=== PATIENT | female | born 1935 | race Caucasian/White ===

== ENCOUNTER → 2017-02-19 | Day surgery (SDC) | payer MEDICARE ==
[~2017-02-19] MED LIST: ALBU8I INH; AMIO200T PO; AMLO2.5T PO; APIX2.5T PO; ATOR80TA PO; AZEL0.05; BACL10TA PO; BACL20; CARD240C6 PO; CLAR10CA3 PO; CORT15T EX; CYMB30CA PO; DULO1CAP2 PO; FAMO20TA2 PO; FISH1200 PO; FLON0.053; FLOV220A INH; FLUTI220I INH; FURO20TA PO; GAS-80CH CHEW; GENTGEL; GNP5TAB6 PO; HYDR-3133 PO; IPRASOL INH; ISOS20TA PO; ISOS30; KETOCONAZOLE 1%; LACTATED RINGER'S 1000 ML INJ 1,000 ML ONE; LIPI10TA PO; MELO-1 PO; METO25 PO; METO25TA3 PO; METO50TA PO; NITR0.4S SL; NITR1SUB3 SL; NORC5TAB PO; NYST100010 TOP; ONABOTULINUMTOXINA INJ 100 UNITS/VIAL ONE; POLY119S PO; POTA20TA5 PO; PRAM0.12 PO; PRAM1TAB; PROPOFOL 200 MG/20 ML AMP IV ONE; PROT40TA PO; SENN1TAB PO; SODIUM CHLORIDE 0.9% INJ 10 ML ONE; TAB-TAB PO; TUMS500C PO; TYLE500T PO; VENTAER INH; domperidone PO
--- NOTE | 2017-02-19 12:53 | GIPROC ---
[facility] [address] [facility], [address] EGD PROCEDURE REPORT EXAM DATE: 02/19/2017 PATIENT NAME: Rafy Orozco MR #: [id number] BIRTHDATE: 1935 ATTENDING: Triny Bhatia MD ORDER #: [id number] EDGING MACHINE CATCHER: Elena Lopez RN STATUS: outpatient INDICATIONS: The patient is a 82 yr old female here for an EGD due to history of esophageal reflux, dyspepsia, and dysphagia PROCEDURE PERFORMED: EGD w/ biopsy EGD w/ directed submucosal injection(s), any substance MEDICATIONS: None and Per Anesthesia. TOPICAL ANESTHETIC: CONSENT: The patient understands the risks and benefits of the procedure and understands that these risks include, but are not limited to: sedation, allergic reaction, infection, perforation and/or bleeding. Alternative means of evaluation and treatment include, among others: physical exam, x-rays, and/or surgical intervention. The patient elects to proceed with this endoscopic procedure. medical equipment was checked for proper function. Hand hygiene and appropriate measures for infection prevention was taken. After the risks, benefits and alternatives of the procedure were thoroughly explained, Informed consent was verified, confirmed and timeout was successfully executed by the treatment team. The patient was anesthetized with topical anesthesia and the [id number] ([id number]) endoscope was introduced through the mouth and advanced to the second portion of the duodenum. Retroflexed views revealed a hiatal hernia The gastroscope was then slowly withdrawn and removed. ESOPHAGUS: The mucosa of the esophagus appeared normal. STOMACH: There was erythematous moderate gastritis in the gastric antrum. A biopsy was performed. Pyloric stenosis, injected with 5 cc of botox around the pylorus. DUODENUM: The duodenal mucosa appeared normal in the bulb and second portion of the duodenum. ADVERSE EVENTS: There were no complications. IMPRESSIONS: 1. The esophagus appeared normal 2. There was erythematous gastritis in the gastric antrum; biopsy was performed 3. Pyloric stenosis, injected with 5 cc of botox around the pylorus 4. Normal duodenal mucosa in the bulb and second portion of the duodenum 5. Retroflexed views revealed a hiatal hernia RECOMMENDATIONS: 1. Await biopsy results. Biopsy results will not be ready for 7-10 days. If you don't hear from us in two weeks, call our office for biopsy results. 2. Anti-reflux regimen 3. Continue PPI 4. Follow-up: GI clinic 2 week(s) PATIENT CONDITION: stable DISPOSITION: Home REPEAT EXAM: Return as needed for EGD pending biopsy results Triny Bhatia MD eSigned: Triny Bhatia MD 02/19/2017 12:53 PM [facility]: [facility] PATIENT NAME: Rafy Orozco MR#: [id number]
== END | disposition home or self-care (01) ==
LOC: ESDC 10:23
PROVIDERS: ATTEND Internal Medicine Gastroenterology
DX: K21.9 Gastro-esophageal reflux disease without esophagitis (principal); R13.10 Dysphagia, unspecified; K29.70 Gastritis, unspecified, without bleeding; K31.1 Adult hypertrophic pyloric stenosis; K44.9 Diaphragmatic hernia without obstruction or gangrene
CPT/HCPCS: 00740; 00810; 43236; 43239; 88305; 88312; J0585; J3010; J7120

== ENCOUNTER 2017-03-10 06:55 | Inpatient (IN) | payer MEDICARE ==
[2017-03-10] VITALS (16 sets, daily range): BP systolic 109–196; BP diastolic 56–104; PULSE 73–144; RESP 13–30; TEMP 97.6–99.1; O2SAT 95–100
[~2017-03-10] VITALS: Ht 152.4 cm; Wt 68.7 kg
[~2017-03-10 06:55] MED LIST changes: -AMIO200T PO; -AMLO2.5T PO; -APIX2.5T PO; -BACL10TA PO; -CARD240C6 PO; -CLAR10CA3 PO; -DULO1CAP2 PO; -FAMO20TA2 PO; -FISH1200 PO; -FLUTI220I INH; -FURO20TA PO; -GNP5TAB6 PO; -HYDR-3133 PO; -IPRASOL INH; -ISOS20TA PO; -KETOCONAZOLE 1%; -LACTATED RINGER'S 1000 ML INJ 1,000 ML ONE; -LIPI10TA PO; -MELO-1 PO; -METO25TA3 PO; -METO50TA PO; -NITR1SUB3 SL; -NORC5TAB PO; -ONABOTULINUMTOXINA INJ 100 UNITS/VIAL ONE; -POTA20TA5 PO; -PRAM0.12 PO; -PROPOFOL 200 MG/20 ML AMP IV ONE; -SENN1TAB PO; -SODIUM CHLORIDE 0.9% INJ 10 ML ONE; -VENTAER INH; -domperidone PO
[2017-03-10] MEDS ORDERED: ETOMIDATE 20 MG/10 ML VIAL ONE (07:00)
[2017-03-10] MEDS ORDERED: SUCCINYLCHOLINE CHLORIDE 200 MG/10 ML VIAL ONE (07:01)
[2017-03-10] MEDS ORDERED: PROPOFOL 1000 MG/100 ML INJ 100 ML ONE (07:08)
[2017-03-10] MEDS ORDERED: FUROSEMIDE 40 MG/4 ML VIAL IVP ONE (07:15)
[2017-03-10] MEDS ORDERED: methylPREDNISolone SOD SUCC 125 MG/2 ML VIAL IVP ONE (07:15)
--- NOTE | 2017-03-10 07:24 | PD ---
HPI Chief Complaint: Respiratory Distress Time Seen by Provider: 07:12 Travel History International Travel<30 days: No Contact w/Intl Traveler<30days: No Traveled to known affect area: No History of Present Illness HPI most of history obtained from ems....call to private home for sob, found pulse ox 74%, UNKNOWN CODE STATUS, PFS Past Medical History Arthritis: Yes Autoimmune Disease: No Blood Disorders: No Depression: Yes Heart Rhythm Problems: Yes Cancer: Yes (hx of left breast cancer) Cardiac Catheterization: Yes Cardiovascular Problems: Yes (cad pt had triple by-pass) High Cholesterol: Yes Chest Pain: Yes Cerebrovascular Accident: Yes Diabetes: No Endocrine: No Gastrointestinal Disorders: Yes (ibs and reflux with symptoms of diaherra) GERD: Yes Glaucoma: No Genitourinary: Yes (pt states she has a interstim) Headaches: Yes Hepatitis: No Hiatal Hernia: No Hypertension: Yes Immune Disorder: No Medical other: Yes (ARTHRITIS, STROKE) Musculoskeletal: Yes (pt states she does have back problems and arthritis) Neurologic: No Psychiatric: No Reproductive: No Respiratory: Yes (light asthma) Integumentary: No Thyroid Disease: No PNEUMOCCOCAL Vaccine (Year): 1 Past Surgical History Abdominal Surgery: Yes (lap benito) Body Medical Devices: interstim, WIRES IN CHEST Cardiac Surgery: Yes (triple by-pass) Coronary Artery Bypass Graft: Yes Ear Surgery: No Endocrine Surgery: No Eye Surgery: Yes (romario lens implants) Genitourinary Surgery: No Gynecologic Surgery: Yes (D&C) Neurologic Surgery: Yes (CERVICAL (NECK) SX, LUMBAR FUSION) Oral Surgery: Yes (TONSILLECTOMY) Pacemaker: No Thoracic Surgery: Yes (left breast lumpectomy) Other Surgery: Yes (CATARACTS) Social History Alcohol Use: No Tobacco Use: No Substance Use: No Allergies-Medications (Allergen,Severity, Reaction): Coded Allergies: Amlodipine (Unverified Allergy, Severe, swellings in the legs, 03/29/14) Azithromycin (Verified Allergy, Severe, 03/29/14) unknown Darvon (Verified Allergy, Severe, LIGHT HEADED, 03/29/14) Naproxen (Verified Allergy, Severe, DIZZINESS, 03/29/14) Penicillin (Verified Allergy, Severe, Rash, 03/29/14) Protonix (Verified Allergy, Severe, 03/29/14) pt states its ok to take Sulfa (Verified Allergy, Severe, Hives, 03/29/14) CONFIRM? Zetia (Unverified Allergy, Severe, RASH, 03/29/14) CRESTOR (Unverified Allergy, Unknown, legs aching, 03/29/14) Lipitor (Verified Adverse Reaction, Severe, MUSCLE ACHES, JOINT SORENESS, 03/29/14) pt states its ok to take Zocor (Verified Adverse Reaction, Severe, MUSCLE ACHES, JOINT SORENESS, ) Uncoded Allergies: LOTEMAX (Allergy, Severe, eye lids get sore, 03/25/14) STATINS (Adverse Reaction, Intermediate, MUSCLE CRAMPS LEGS AND SORENESS IN JOINTS, 09/13/10) Reported Meds & Prescriptions Reported Meds & Active Scripts Active Reported [domperidone] 10 Mg PO TID Lipitor (Atorvastatin Calcium) 10 Mg Tab Unknown Dose PO HS Claritin (Loratadine) 10 Mg Cap 10 Mg PO DAILY Fish Oil 1200 mg (Jarrell-3 Fatty Acids) 1 Cap Cap 1 Tab PO DAILY Pramipexole (Pramipexole Dihydrochloride) 0.125 Mg Tab 0.125 Mg PO HS Flovent Hfa 12 GM Inh (Fluticasone Propionate) 220 Mcg/Act Inh 1 Puff INH BID Use daily at the same time. [ketoconazole 1%] 1 Applic NA BID PRN Nitroglycerin SL (Nitroglycerin) 0.4 Mg Subl 0 SL DIRECTED PRN ONE TABLET UNDER THE TONGUE NEEDED FOR CHEST PAIN, MAY REPEAT EVERY FIVE MINUTES FOR A TOTAL OF 3 DOSES OR CALL 911 IF NO RELIEF Ventolin Hfa 18 GM Inh (Albuterol Sulfate) 90 Mcg/Act Aer 2 Puff INH Q6H PRN Hydroxyzine HCl 25 Mg Tab 25 Mg PO TID Meloxicam 15 Mg Tab 15 Mg PO DAILY Amlodipine (Amlodipine Besylate) 2.5 Mg Tab 2.5 Mg PO DAILY Glendo (Hydrocodone-Acetaminophen) 5-325 mg Tab 1 Tab PO Q8HR PRN Protonix (Pantoprazole Sodium) 40 Mg Tab 40 Mg PO BID Duloxetine DR (Duloxetine HCl) 30 Mg Capdr 30 Mg PO DAILY Isosorbide Mononitrate 20 Mg Tab 30 Mg PO BID Take 2 doses 7 hours apart. Metoprolol Tartrate 50 Mg Tab 50 Mg PO BID Baclofen 10 Mg Tab 5 Mg PO HS Review of Systems ROS Limitations: Clinical Condition, Intubated Except as stated in HPI: all other systems reviewed are Neg Physical Exam Narrative GENERAL: patient was not speaking on arrival while on bipap, made poor eye contact...diaphoretic SKIN: Warm and dry. HEAD: Atraumatic. Normocephalic. EYES: Pupils equal and round. No scleral icterus. No injection or drainage. ENT: No nasal bleeding or discharge. Mucous membranes pink and moist. NECK: Trachea midline. No JVD. CARDIOVASCULAR: Regular rate and rhythm. RESPIRATORY: accessory mm use, retractions full, paradoxical breathing pattern, wheezes, and decreased tv GASTROINTESTINAL: Abdomen soft, non-tender, nondistended. Hepatic and splenic margins not palpable. MUSCULOSKELETAL: Extremities without clubbing, cyanosis, or edema. No obvious deformities. NEUROLOGICAL: Awake and alert. No obvious cranial nerve deficits. Motor grossly within normal limits. Five out of 5 muscle strength in the arms and legs. Normal speech. PSYCHIATRIC: Appropriate mood and affect; insight and judgment normal. Data Data Last Documented VS Vital Signs Date Time Temp Pulse Resp B/P Pulse Ox O2 Delivery O2 Flow Rate FiO2 03/10/17 09:00 113 14 121/60 97 Ventilator 03/10/17 08:50 40 Orders Etomidate Inj (Amidate Inj) (03/10/17 07:00) Succinylcholine Inj (Quelicin Inj) (03/10/17 07:01) Propofol 1000 Mg/100 Ml Inj (Diprivan 10 (03/10/17 07:08) Complete Blood Count With Diff (03/10/17 07:12) Comprehensive Metabolic Panel (03/10/17 07:12) B-Type Natriuretic Peptide (03/10/17 07:12) Act Partial Throm Time (Ptt) (03/10/17 07:12) Prothrombin Time / Inr (Pt) (03/10/17 07:12) Ckmb (Isoenzyme) Profile (03/10/17 07:12) Troponin I (03/10/17 07:12) Arterial Blood Gas (Abg) (03/10/17 07:12) Urinalysis - C+S If Indicated (03/10/17 07:12) Influenzae A/B Antigen (03/10/17 07:12) Blood Culture (03/10/17 07:12) Iv Access Insert/Monitor (03/10/17 07:12) Electrocardiogram (03/10/17 07:12) Ecg Monitoring (03/10/17 07:12) Oximetry (03/10/17 07:12) Oxygen Administration (03/10/17 07:12) Chest, Single Ap (03/10/17 07:12) Urinary Catheter Insert/Apply (03/10/17 07:12) Sodium Chloride 0.9% Flush (Ns Flush) (03/10/17 07:15) Furosemide Inj (Lasix Inj) (03/10/17 07:15) Methylprednisolone So Succ Inj (Solumedr (03/10/17 07:15) Albuterol-Ipratropium Neb (Duoneb Neb) (03/10/17 07:15) Kendra-Gastric Tube Insert/Mon (03/10/17 07:25) Propofol 1000 Mg/100 Ml Inj (Diprivan 10 (03/10/17 07:30) Etomidate Inj (Amidate Inj) (03/10/17 07:45) Succinylcholine Inj (Quelicin Inj) (03/10/17 07:45) Lactic Acid Sepsis Protocol (03/10/17 08:15) Pneumococcal Urinary Antigen (03/10/17 08:15) Legionella Urinary Antigen (03/10/17 08:15) Sputum Culture And Gram Stain (03/10/17 08:15) Metronidazole 500 Mg Inj (Flagyl 500 Mg (03/10/17 08:15) Aztreonam Inj (Azactam Inj) (03/10/17 08:15) Tobramycin Inj (Nebcin Inj) (03/10/17 08:45) Vancomycin Inj (Vancomycin Inj) (03/10/17 09:00) Ct Thorax/ Chest Wo Iv Contras (03/10/17 ) Admit Order (Ed Use Only) (03/10/17 08:56) Labs Laboratory Tests Test 03/10/17 03/10/17 07:20 08:30 White Blood Count 14.9 TH/MM3 Red Blood Count 4.26 MIL/MM3 Hemoglobin 11.6 GM/DL Hematocrit 37.3 % Mean Corpuscular Volume 87.5 FL Mean Corpuscular Hemoglobin 27.3 PG Mean Corpuscular Hemoglobin 31.2 % Concent Red Cell Distribution Width 14.9 % Platelet Count 389 TH/MM3 Mean Platelet Volume 8.0 FL Neutrophils (%) (Auto) 79.7 % Lymphocytes (%) (Auto) 12.4 % Monocytes (%) (Auto) 5.8 % Eosinophils (%) (Auto) 1.9 % Basophils (%) (Auto) 0.2 % Neutrophils # (Auto) 11.9 TH/MM3 Lymphocytes # (Auto) 1.8 TH/MM3 Monocytes # (Auto) 0.9 TH/MM3 Eosinophils # (Auto) 0.3 TH/MM3 Basophils # (Auto) 0.0 TH/MM3 CBC Comment DIFF FINAL Differential Comment Prothrombin Time 13.5 SEC Prothromb Time International 1.2 RATIO Ratio Activated Partial 25.7 SEC Thromboplast Time Urine Color YELLOW Urine Turbidity HAZY Urine pH 6.0 Urine Specific [place] 1.018 Urine Protein 100 mg/dL Urine Glucose (UA) 70 mg/dL Urine Ketones NEG mg/dL Urine Occult Blood SMALL Urine Nitrite NEG Urine Bilirubin NEG Urine Urobilinogen LESS THAN 2.0 MG/DL Urine Leukocyte Esterase NEG Urine Amorphous Sediment OCC Urine Bacteria FEW /hpf Urine Hyaline Casts 3-5 /lpf Microscopic Urinalysis Comment CULT NOT INDICATED Sodium Level 139 MEQ/L Potassium Level 4.4 MEQ/L Chloride Level 101 MEQ/L Carbon Dioxide Level 28.7 MEQ/L Anion Gap 9 MEQ/L Blood Urea Nitrogen 14 MG/DL Creatinine 1.07 MG/DL Estimat Glomerular Filtration 49 ML/MIN Rate Random Glucose 208 MG/DL Calcium Level 9.1 MG/DL Total Bilirubin 0.7 MG/DL Aspartate Amino Transf 45 U/L (AST/SGOT) Alanine Aminotransferase 37 U/L (ALT/SGPT) Alkaline Phosphatase 159 U/L Total Creatine Kinase 87 U/L Troponin I 0.13 NG/ML B-Type Natriuretic Peptide 299 PG/ML Total Protein 7.2 GM/DL Albumin 3.0 GM/DL Blood Gas Puncture Site LT RADIAL Blood Gas Patient Temperature 98.6 Blood Gas HCO3 27 mmol/L Blood Gas Base Excess 3.4 mmol/L Blood Gas Oxygen Saturation 98 % Arterial Blood pH 7.49 Arterial Blood Partial 35 mmHg Pressure CO2 Arterial Blood Partial 310 mmHG Pressure O2 Arterial Blood Oxygen Content 15.6 Vol % Arterial Blood 1.3 % Carboxyhemoglobin Arterial Blood Methemoglobin 0.5 % Blood Gas Hemoglobin 10.8 G/DL Oxygen Delivery Device VENTILATOR Blood Gas Ventilator Setting 14/550/+5/100% Blood Gas Inspired Oxygen 100 % [facility] Medical Decision Making Medical Screen Exam Complete: Yes Emergency Medical Condition: Yes Medical Record Reviewed: Yes Interpretation(s) st 101, lae, nonspec stt changes Differential Diagnosis PNA, CHF, PULM EDEMA, RENAL FAILURE, NONSTEMI/OK, CAUSES OF RESP FAILURE Narrative Course PATIENT ARRIVED WITH PARADOXICAL BREATHING, SEVERE HYPOXEMIA PATIENT WAS GIVEN RSI AND INTUBATED GERSON. SEE INTUBATION, SEE CRITICAL CARE NOTE, PATIENT WAS GIVEN IV ABX AZACTAM/VANCO/TOBRAMYCIN/FLAGYL COMBINATION, ETT WAS PULLED BACK 1 INCH, BASED ON FINDINGS ON CXR OF MULTILOBAR PNA AND ETT ABUTTING RT MAINSTEM. UA C/W UTI. PATIENT'S CASE D/W AMELIA WHO REQUESTED CT CHEST W/O CONTRAST PRIOR TO TRANSFEERRING FOR ADMISSION TO ICU Critical Care Narrative CRITICAL CARE NOTE: With evaluation of the patient, labs, EKG, receipt of radiologic studies, administration of medications, reevaluation the patient and discussion of the patient with the admitting physicians, the total critical care time was [60] minutes. Time to perform other separately billable procedures was not included in the critical care time. Procedures Procedure Narrative The patient was put in optimal position for the procedure. Rapid sequence intubation was initiated by me using [20] milligrams of etomidate IV and [100] milligrams of [succinylcholine] IV. The patient was intubated with a [8-0] cuffed endotracheal tube. Tube placement was confirmed by visualization of the tube and balloon passing through the cords, capnometry and subsequent chest x- ray. Breath sounds were equal and well aerated bilaterally postintubation. No breath sounds over stomach. Patient tolerated procedure well. Physician Communication Physician Communication SPOKE WITH DR FAYE WHO RECC TO SPEAK WITH FLEET SERVICE MANAGER. DISCUSSED FULLY WITH FLEET SERVICE MANAGER Tevin JOYCE AT 0855 Diagnosis Primary Impression: Respiratory failure Qualified Code: J96.01 - Acute respiratory failure with hypoxia Additional Impression: Pneumonia Qualified Code: J18.9 - Pneumonia due to infectious organism, unspecified laterality, unspecified part of lung Admitting Information Admitting Physician Requests: Admit Jony Harrison MD Mar 10, 2017 07:24
[2017-03-10] MEDS: PROPOFOL 1000 MG/100 ML BTL IV SCH ×2 (07:39→20:34)
[2017-03-10 07:42] LABS: AUTOMATED NEUTROPHIL # 11.9 TH/MM3 (1.8-7.7); BASOPHIL % 0.2 % (0.0-2.0); EOSINOPHIL # 0.3 TH/MM3 (0-0.4); EOSINOPHIL % 1.9 % (0.0-4.0); HEMATOCRIT 37.3 % (35.0-46.0); HEMO FLAGS DIFF FINAL; LYMPH % 12.4 % (9.0-44.0); LYMPHOCYTE # 1.8 TH/MM3 (1.0-4.8); MEAN CELL VOLUME 87.5 FL (80.0-100.0); MEAN CORPUSCULAR HEMOGLOBIN 27.3 PG (27.0-34.0); MEAN CORPUSCULAR HGB CONC 31.2 % (32.0-36.0); MONO % 5.8 % (0.0-8.0); NEUT % 79.7 % (16.0-70.0); PLATELET COUNT 389 TH/MM3 (150-450); RED BLOOD COUNT 4.26 MIL/MM3 (4.00-5.30); RED CELL DISTRIBUTION WIDTH 14.9 % (11.6-17.2); WHITE BLOOD COUNT 14.9 TH/MM3 (4.0-11.0)
[2017-03-10] MEDS ORDERED: ETOMIDATE 20 MG/10 ML VIAL IV PUSH ONE (07:45)
[2017-03-10] MEDS ORDERED: SUCCINYLCHOLINE CHLORIDE 200 MG/10 ML VIAL IV PUSH ONE (07:45)
[2017-03-10 07:50] LABS: APTT (PATIENT) 25.7 SEC (24.3-30.1); INTERNATIONAL NORMALIZED RATIO 1.2 RATIO; PROTHROMBIN TIME - PATIENT 13.5 SEC (9.8-11.6)
[2017-03-10] MEDS: RESP: ALBUTEROL 2.5 MG/IPRATROPIUM 0.5 MG NEB (SCH) INH ×4 (07:50→21:55)
[2017-03-10 07:52] LABS: BLOOD, URINE SMALL (NEG); GLUCOSE,URINE 70 mg/dL (NEG); KETONE, URINE NEG (NEG); NITRITE,URINE NEG (NEG); URINE COLOR YELLOW (YELLW/STRAW)
--- NOTE | 2017-03-10 08:00 | RADRPT ---
EXAM DATE/TIME: 03/10/2017 07:43 [facility] COMPARISON: No previous studies available for comparison. INDICATIONS : Evaluate ET tube placement. MEDICAL HISTORY : Hypertension. Carcinoma, breast. Cardiovascular disease. Stroke SURGICAL HISTORY : CABG. ENCOUNTER: Initial ACUITY: 1 day PAIN SCORE: Non-responsive. LOCATION: Bilateral chest FINDINGS: ETT is low-lying with tip at the muriel oriented towards the right mainstem bronchus. There is an NGT which courses beyond the GE junction with tip omitted from the image. Patchy airspace consolidation in the right upper lobe with patchy airspace opacities in the right lower lobe. The cardiac opacity w ith obscuration of the left hemidiaphragm. Cardiomediastinal contours are within normal limits given portable technique. Degenerative changes of the right shoulder. Bony thorax is otherwise intact. CONCLUSION: 1. Low-lying ETT with tip at the muriel oriented towards the right mainstem bronchus. 2. Patchy airspace consolidation in the right upper lobe and patchy airspace disease in the lower lob es bilaterally. Differential considerations include aspiration versus atypical infection versus multi lobar pneumonia. Jc Montana MD on March 10, 2017 at 7:55 Board Certified Radiologist. This report was verified electronically.
[2017-03-10] MEDS ORDERED: DULO1CAP2 PO (08:03)
[2017-03-10] MEDS ORDERED: BACL10TA PO (08:03)
[2017-03-10] MEDS ORDERED: CYMB30CA PO (08:03)
[2017-03-10] MEDS ORDERED: ISOS20TA PO (08:03)
[2017-03-10] MEDS ORDERED: METO50TA PO (08:03)
[2017-03-10 08:04] LABS: ALT (GPT) 37 U/L (10-53); ANION GAP 9 MEQ/L (5-15); AST (GOT) 45 U/L (15-37); BACTERIA, URINE FEW /hpf; BICARBONATE 28.7 MEQ/L (21.0-32.0); BLOOD UREA NITROGEN 14 MG/DL (7-18); CHLORIDE 101 MEQ/L (98-107); CULTURE IF INDICATED CULT NOT INDICATED; GLOMERULAR FILTRATION RATE 49 ML/MIN (>89); POTASSIUM 4.4 MEQ/L (3.5-5.1); SODIUM (NA) 139 MEQ/L (136-145)
[2017-03-10 08:05] LABS: COMMENT (UR) CULT NOT INDICATED
[2017-03-10 08:07] LABS: ALKALINE PHOSPHATASE 159 U/L (45-117); TOTAL BILIRUBIN ADULT 0.7 MG/DL (0.2-1.0)
[2017-03-10 08:08] LABS: CREATINE KINASE 87 U/L (26-192)
[2017-03-10] MEDS ORDERED: NITR1SUB3 SL (08:13)
[2017-03-10] MEDS ORDERED: domperidone PO (08:13)
[2017-03-10] MEDS ORDERED: PRAM0.12 PO (08:13)
[2017-03-10] MEDS ORDERED: LIPI10TA PO (08:13)
[2017-03-10] MEDS ORDERED: PROT40TA PO (08:13)
[2017-03-10] MEDS ORDERED: FLUTI220I INH (08:13)
[2017-03-10] MEDS ORDERED: NORC5TAB PO (08:13)
[2017-03-10] MEDS ORDERED: HYDR-3133 PO (08:13)
[2017-03-10] MEDS ORDERED: MELO-1 PO (08:13)
[2017-03-10] MEDS ORDERED: CLAR10CA3 PO (08:13)
[2017-03-10] MEDS ORDERED: FISH1200 PO (08:13)
[2017-03-10] MEDS ORDERED: KETOCONAZOLE 1% (08:13)
[2017-03-10] MEDS ORDERED: VENTAER INH (08:13)
[2017-03-10] MEDS ORDERED: AMLO2.5T PO (08:13)
[2017-03-10] MEDS ORDERED: metroNIDAZOLE 500 MG INJ 100 ML IV ONE (08:15)
[2017-03-10] MEDS ORDERED: AZTREONAM INJ 2,000 MG in SODIUM CHLORIDE 0.9% INJ 100 ML IV ONE (08:15)
[2017-03-10 08:42] LABS: BLOOD GAS BASE EXCESS 3.4 mmol/L (-2-2); BLOOD GAS CARBOXYHEMOGLOBIN 1.3 % (0-4); BLOOD GAS HCO3 27 mmol/L (22-26); BLOOD GAS METHEMOGLOBIN 0.5 % (0-2); BLOOD GAS O2 HGB SATURATION 98 % (90-100); BLOOD GAS OXYGEN CONTENT 15.6 Vol % (12.0-20.0); BLOOD GAS PCO2 35 mmHg (38-42); BLOOD GAS PO2 310 mmHG (61-120); BLOOD GAS TOTAL HGB 10.8 G/DL (12.0-16.0); CRITICAL VALUE NO; DRAW SITE LT RADIAL; FIO2 100 %; NUMBER OF ARTERIAL PUNCTURES 1; OXYGEN DEVICE VENTILATOR; STAT YES; TEMP CORR TO 98.6; ULNAR PULSE PRESENT; VENT SETTINGS 14/550/+5/100%
[2017-03-10] MEDS ORDERED: SODIUM CHLORIDE 0.9% IV ONE (08:45)
[2017-03-10] MEDS ORDERED: TOBRAMYCIN IV ONE (08:45)
[2017-03-10] MEDS ORDERED: VANCOMYCIN INJ 1,000 MG in SODIUM CHLOR 0.9% 250 ML INJ 250 ML IV ONE (09:00)
[2017-03-10] MEDS ORDERED: DILTIAZEM HCL 25 MG/5 ML VIAL IV ONE (10:45)
--- NOTE | 2017-03-10 12:49 | RADRPT ---
EXAM DATE/TIME: 03/10/2017 11:51 [facility] COMPARISON: No previous studies available for comparison. INDICATIONS : Pneumonia, dyspnea RADIATION DOSE: 5.23 CTDIvol (mGy) MEDICAL HISTORY : Cerebrovascular disease. Cardiovascular disease Hypertension. SURGICAL HISTORY : None. ENCOUNTER: Initial ACUITY: 1 day PAIN SCALE: Non-responsive LOCATION: chest TECHNIQUE: Volumetric scanning of the chest was performed. Using automated exposure control and adjustment of t he mA and/or kV according to patient size, radiation dose was kept as low as reasonably achievable to obtain optimal diagnostic quality images. FINDINGS: LINES/TUBES: There is an ETT with tip just in the right mainstem bronchus. An NGT is coiled in the stomach. LUNGS: Patchy airspace disease in the right upper lobe and to lesser extent in the anterior right middle lob e. Linear airspace consolidation in the base of the lingula and lower lobes bilaterally consistent wi th compressive atelectasis. Multiple right greater left bilateral lower lobe bullae. PLEURAE: There are moderate to large bilateral pleural effusions.. MEDIASTINUM: Heart is borderline enlarged. No pericardial effusion. Dense coronary artery calcifications. No gross mediastinal mass. AXILLAE: Within normal limits. No lymphadenopathy. MUSCULOSKELETAL: Degenerative spondylosis most prominently at T8-9 and T10-11 with endplate sclerosis and vacuum disc phenomenon. No focal abnormal lytic blastic bony lesions. MISCELLANEOUS: Postsurgical features of prior cholecystectomy. Upper abdomen is otherwise grossly unremarkable. CONCLUSION: 1. ETT tip just in the right mainstem bronchus and should be retracted. 2. Moderate to large bilateral pleural effusions with associated compressive atelectasis at the lung bases. 3. Patchy airspace disease in the right upper lobe and anterior right middle lobe consistent with pne umonia. 4. Ancillary findings include dense coronary artery calcifications, prior cholecystectomy, and degene rative spondylosis of the thoracic spine. Jc Montana MD on March 10, 2017 at 12:28 Board Certified Radiologist. This report was verified electronically.
[2017-03-10] MEDS ORDERED: MISCELLANEOUS NURSING INFORMATION XX SCH (13:00)
[2017-03-10] MEDS ORDERED: CHLORHEXIDINE GLUCONATE 2 % 1 PACK (2 CLOTHS) TOP PRN (13:00)
[2017-03-10] MEDS ORDERED: GLUCAGON 1 MG/ML VIAL OTHER PRN (13:00)
[2017-03-10] MEDS ORDERED: DEXTROSE 50% IN WATER 50 ML VIAL(D50) IV PRN (13:00)
[2017-03-10] MEDS ORDERED: Vancomycin Consult Pharmacy 1 EA OTHER SCH (13:00)
[2017-03-10] MEDS: SODIUM CHLOR 0.9% 1000 ML INJ 1,000 ML IV SCH (13:00)
[2017-03-10] MEDS ORDERED: VANCOMYCIN INJ 1,000 MG in SODIUM CHLOR 0.9% 250 ML INJ 250 ML IV SCH (13:00)
[2017-03-10] MEDS: FAMOTIDINE 20 MG/2 ML VIAL IV PUSH SCH (13:41)
--- NOTE | 2017-03-10 14:17 | MH ---
cc: RAEANN PITTS DATE OF ADMISSION: 03/10/2017 : 1935 HISTORY OF PRESENT ILLNESS The patient is a 82-year-old female with past medical history of coronary artery disease, CABG, history of left-sided breast cancer, hyperlipidemia, gastroesophageal reflux disease, hypertension, who presented to [facility] ED via EMS for respiratory failure. Upon arrival of EMS, the patient was found hypoxic with a pulse ox of 74%. On arrival to the ED she was tachycardic, tachypneic with labored breathing and unable to lay flat. She was subsequently intubated with etomidate, succinylcholine and placed on full mechanical ventilation. Chest x-ray post intubation showed ET tube at the tip of the muriel oriented toward the right mainstem bronchus, patchy airspace consolidation in the right upper lobe and in the lower lobes bilaterally. Her laboratory data is significant for leukocytosis with a WBC of 14.9. Lactic acid level measured at 1.9. In the ER she was given bronchodilator treatment, Solu-Medrol 125 mg IV push, Aztreonam, Tobramycin, Lasix and scheduled to receive one dose of vancomycin. The patient also was given Lasix 40 mg IV push x1 and Flagyl. CT scan of the chest was obtained which showed ET tube tip just in the right mainstem bronchus, moderate to large bilateral pleural effusions with associated compressive atelectasis in the lung bases and patchy airspace disease in the right upper lobe and right middle lobe. When seen the patient is sedated with Diprivan and on full mechanical ventilation. ABG post-intubation showed a pH of 7.49, CO2 35, pAO2 310, bicarb of 27, saturation 98% on assist control ventilation with a rate of 14, tidal volume 550, PEEP of 5, 100% FIO2. PAST MEDICAL HISTORY Past medical history significant for: 1. Coronary artery disease. 2. Hypertension. 3. Gastroesophageal reflux disease. 4. Arthritis. 5. History of CVA. 6. Hyperlipidemia. 7. History of left breast cancer. PAST SURGICAL HISTORY 1. Previous left breast lumpectomy. 2. Previous back surgery. 3. Previous cholecystectomy. 4. Previous CABG x3. 5. Bilateral lens implants. 6. Previous tonsillectomy. 7. Cataract surgery. ALLERGIES Multiple which include: ZOCOR, ZETIA, SULFA, STATINS, PROTONIX, PENICILLIN, NAPROXEN, LIPITOR, DARVON, CRESTOR, AZITHROMAX, AMLODIPINE. SOCIAL HISTORY Nonsmoker, nondrinker. FAMILY HISTORY Noncontributory. REVIEW OF SYSTEMS As per HPI. The rest of the review of systems unobtainable. PHYSICAL EXAMINATION GENERAL: A 82-year-old female intubated for respiratory failure. VITAL SIGNS: Afebrile, pulse of 129, blood pressure 107/56, saturation 96%, vent setting assist control rate of 14, tidal volume 550, PEEP 5, FIO2 40%. HEENT: Atraumatic, normocephalic. Pupils equal, round, reactive to light and accommodation. Extraocular muscles intact. Conjunctivae pink. Nonicteric sclerae. Oral mucosa within normal. NECK: Supple. No JVD, adenopathy or thyromegaly. Trachea midline. Orally intubated. CARDIOVASCULAR: Tachycardic, normal S1-S2. No murmurs, rubs or gallops noted. PULMONARY: Bilateral equal air entry with few coarse breath sounds at the bases. ABDOMEN: Soft, nontender, no distension. Positive bowel sounds. EXTREMITIES: No cyanosis, clubbing or edema. NEURO: Intubated and sedated. EKG Sinus tachycardia with heart rate 101 beats per minute. A possible left atrial enlargement and nonspecific ST-T wave changes. LABORATORY DATA Sodium 139, potassium 4.4, chloride 101, CO2 28, BUN 14, creatinine 1.07, glucose of 208, lactic acid 1.9, AST 45, ALT 37, total bilirubin 0.7, troponin 0.13, BNP 299, albumin 3, WBC 14.9, hemoglobin 11.6, hematocrit 37, platelet count of 389, INR 1.2, PT 13.5, PTT 25.7. Urinalysis negative for leukocyte esterase, few bacteria, negative ketones. RADIOGRAPHIC STUDIES Chest CT showed moderate to large bilateral pleural effusions with compressive atelectasis and patchy airspace disease in the right upper lobe and anterior right middle lobe consistent with pneumonia. IMPRESSION 1. Acute hypoxemic respiratory failure requiring intubation. 2. Multilobar pneumonia. 3. Bilateral pleural effusions with compressive atelectasis. 4. Leukocytosis. 5. Hyperglycemia. 6. Elevated AST. 7. History of coronary artery disease and CABG. 8. History of hypertension. 9. Hyperlipidemia. 10. GERD. 11. History of breast cancer. RECOMMENDATIONS 1. Continue with Diprivan infusion for sedation and daily sedation vacation when appropriate. 2. Continue with vent support and maintain sats above 92%. 3. Bronchodilators in the form of DuoNeb q. 6 and will initiate ICU vent bundle. Will start spontaneous breathing trials in a.m. 4. I will proceed with a CT-guided thoracentesis on the right and will send pleural fluid for analysis and culture. 5. Monitor heart rate and blood pressure closely and maintain MAP greater than 65 mmHg. Lactic acid level measured at 1.9. 6. Monitor renal function, Is and Os and electrolyte replacement as needed. Place on IV fluids in the form of NS at 75 mL an hour. 7. Place on Pepcid 10 mg IV q. 12 and start tube feeds in the form of Glucerna 1.5 with goal rate of 45 mL an hour. 8. Broad-spectrum antibiotics in the form of vancomycin and aztreonam. Monitor for signs of infections which include fever and WBC. Follow up on blood cultures. The nasal washing for influenza A and B antigen are negative. Will check sputum culture and will send strep pneumonia and Legionella urinary antigen. Consult ID service. 9. Place on sliding scale insulin with Accu-Chek q. 6-hour for glycemic control. 10. Monitor CBC. 11. GI prophylaxis with Pepcid 10 mg IV q. 12. 12. DVT prophylaxis with SCDs and heparin subcu. 13. Place central line if indicated. 14. Further recommendations will be based on hospital course. Critical care time 40 minutes excluding procedures. MD GEETA Gonsalez/CAROLIN /1:17 PM /1:46 PM
[2017-03-10] MEDS ORDERED: LIDOCAINE HCL 1% 20 ML VIAL ONE (18:10)
--- NOTE | 2017-03-10 18:50 | PD.RAD ---
Post Procedure Progress Note Pre Procedure Diagnosis: (1) Respiratory failure Post Procedure Diagnosis: (1) Respiratory failure Procedure Date: Mar 10, 2017 Supervising Radiologist: Juan Mcgregor Anesthesia: Local, Analgesia Plan of Activity Patient to Unit: Critical Care Patient Condition: Poor Additional Comments: Ct guided thoracentesis of the right chest completed 500c of straw colored fluid removed cxr pending See PACS Report for procedural detail/treatment Juan Mcgregor MD Mar 10, 2017 18:50
[2017-03-10] MEDS: AZTREONAM INJ 2,000 MG in SODIUM CHLORIDE 0.9% INJ 100 ML IV SCH (19:00)
--- NOTE | 2017-03-10 19:55 | RADRPT ---
EXAM DATE/TIME: 03/10/2017 19:27 [facility] COMPARISON: CT THORAX W/O CONTRAST, March 10, 2017, 11:51. CHEST SINGLE AP, March 10, 2017, 7:43. INDICATIONS : Thoracentesis. MEDICAL HISTORY : None. SURGICAL HISTORY : None. ENCOUNTER: Initial ACUITY: 1 day PAIN SCORE: Non-responsive. LOCATION: Right chest FINDINGS: Interim thoracentesis on the right with decreased pleural effusion. There is patchy consolidation of the right lung, mainly the upper lobe. Basilar consolidation and small to moderate pleural effusion persist on the left. Heart size stable com upper limits of normal. Endotracheal tube tip still extends slightly down the right mainstem bronchus. It should be pulled ba ck a couple centimeters. Nasogastric tube courses into the stomach. CONCLUSION: 1. Interim thoracentesis on the right without evidence of pneumothorax or other acute complication. T here is upper lobe predominant consolidation of the right lung again noted. 2. Basilar consolidation and small to moderate pleural effusion on the left not significantly changed . 3. Persistent right mainstem bronchus intubation. Osman Menjivar MD on March 10, 2017 at 19:50 Board Certified Radiologist. This report was verified electronically.
[2017-03-10] MEDS: INSULIN NovoLIN REGULAR SUPPLEMENTAL SCALE SQ SCH (20:00)
[2017-03-10 20:21] LABS: PLEURAL FLUID LYMPHS 89 %
[2017-03-10] MEDS ORDERED: SODIUM CHLOR 0.9% 1000 ML INJ 1,000 ML IV ONE ×2 (22:00)
[2017-03-10] MEDS: METOPROLOL TARTRATE 5 MG/5 ML VIAL IV PUSH PRN ×2 (22:13→23:55)
[2017-03-11] VITALS (15 sets, daily range): BP systolic 120–147; BP diastolic 69–82; PULSE 72–128; RESP 13–22; TEMP 97.7–98.4; O2SAT 97–100
[2017-03-11] MEDS: METOPROLOL TARTRATE 5 MG/5 ML VIAL IV PUSH PRN (00:11)
[2017-03-11] MEDS: HEPARIN SODIUM - SQ 10,000 UNITS/ML VIAL SQ SCH ×2 (02:00→12:44)
[2017-03-11] MEDS: INSULIN NovoLIN REGULAR SUPPLEMENTAL SCALE SQ SCH ×4 (02:00→19:42)
[2017-03-11] MEDS ORDERED: AMIODARONE 150 MG/D5W 97 ML BOLUS 10 MINUTES IV ONE ×2 (02:00)
[2017-03-11] MEDS: AMIODARONE INJ 450 MG in D5W (EXCEL BAG) 241 ML IV SCH ×2 (02:20→09:29)
[2017-03-11] MEDS: FAMOTIDINE 20 MG/2 ML VIAL IV PUSH SCH ×2 (02:25→11:41)
[2017-03-11] MEDS: AZTREONAM INJ 2,000 MG in SODIUM CHLORIDE 0.9% INJ 100 ML IV SCH ×3 (02:38→17:21)
[2017-03-11] MEDS: SODIUM CHLOR 0.9% 1000 ML INJ 1,000 ML IV SCH (02:40)
[2017-03-11] MEDS: PROPOFOL 1000 MG/100 ML BTL IV SCH ×3 (03:23→17:21)
[2017-03-11] MEDS: RESP: ALBUTEROL 2.5 MG/IPRATROPIUM 0.5 MG NEB (SCH) INH ×4 (03:50→19:26)
[2017-03-11] MEDS: CHLORHEXIDINE GLUCONATE 2 % 1 PACK (2 CLOTHS) TOP SCH (04:00)
[2017-03-11 06:30] LABS: AUTOMATED NEUTROPHIL # 11.6 TH/MM3 (1.8-7.7); BASOPHIL % 0.2 % (0.0-2.0); HEMATOCRIT 32.2 % (35.0-46.0); HEMO FLAGS DIFF FINAL; LYMPH % 5.5 % (9.0-44.0); LYMPHOCYTE # 0.7 TH/MM3 (1.0-4.8); MEAN CELL VOLUME 84.3 FL (80.0-100.0); MEAN CORPUSCULAR HGB CONC 33.3 % (32.0-36.0); MONO % 6.1 % (0.0-8.0); NEUT % 88.2 % (16.0-70.0); PLATELET COUNT 298 TH/MM3 (150-450); RED BLOOD COUNT 3.82 MIL/MM3 (4.00-5.30); WHITE BLOOD COUNT 13.2 TH/MM3 (4.0-11.0)
[2017-03-11 07:07] LABS: ALKALINE PHOSPHATASE 125 U/L (45-117); ALT (GPT) 28 U/L (10-53); ANION GAP 10 MEQ/L (5-15); AST (GOT) 32 U/L (15-37); BICARBONATE 25.7 MEQ/L (21.0-32.0); BLOOD UREA NITROGEN 17 MG/DL (7-18); CHLORIDE 104 MEQ/L (98-107); GLOMERULAR FILTRATION RATE 83 ML/MIN (>89); SODIUM (NA) 140 MEQ/L (136-145); TOTAL BILIRUBIN ADULT 0.4 MG/DL (0.2-1.0)
--- NOTE | 2017-03-11 08:02 | RADRPT ---
EXAM DATE/TIME: 03/10/2017 18:20 INDICATIONS : Preural effusion. DEVICE(S): 1.) 6 Fr catheter Total volume of 500 cc of clear, yellow fluid was removed. MEDICAL HISTORY : Cardiovascular disease. SURGICAL HISTORY : CABG ENCOUNTER: Initial ACUITY: 1 day PAIN SCORE: 0/10 LOCATION: Right chest PROCEDURE: 1. CT guided right thoracentesis. The site was prepped in sterile fashion. Full sterile technique was used, including cap, mask, steri le gloves and gown and a large sterile sheet. Hand hygiene and 2% chlorhexidine and/or betadine/alco hol prep was utilized per protocol for cutaneous antisepsis. The skin and subcutaneous tissues were infiltrated with local anesthetic solution. Using automated exposure control and adjustment of the mA and/or kV according to patient size, radiation dose was kept as low as reasonably achievable to obta in optimal diagnostic quality images. With the patient supine on the CT table, procurement director images were obtained through the chest demonstrating t he right sided pleural effusion. Dermatotomy was made and a safety centesis catheter was advanced in to the pleural fluid. The pleural fluid as above was removed from the hemithorax. Post procedural s can show reduction in the amount of fluid with no evidence of pneumothorax. The patient tolerated the procedure well and there were no complications. EKG and oximetry remained s table throughout the procedure. The patient was sent to recovery in stable condition. CONCLUSION: Uncomplicated CT-guided thoracentesis. 500 cc of pleural fluid was removed from the right chest. Juan Mcgregor MD on March 11, 2017 at 7:58 Board Certified Radiologist. This report was verified electronically.
[2017-03-11] MEDS ORDERED: MAGNESIUM SULFATE INJ 4 GM in SODIUM CHLORIDE 0.9% INJ 92 ML IV PRN (08:45)
[2017-03-11] MEDS ORDERED: POTASSIUM CHLOR 40 MEQ PREMIX 100 ML IV PRN ×2 (08:45)
[2017-03-11] MEDS ORDERED: MAGNESIUM SULFATE INJ 2 GM in SODIUM CHLORIDE 0.9% INJ 96 ML IV PRN (08:45)
[2017-03-11] MEDS ORDERED: MAGNESIUM OXIDE 400 MG TAB PO PRN (08:45)
[2017-03-11] MEDS ORDERED: POTASSIUM CHLORIDE 25 MEQ EFFERVESCENT TAB PO PRN (08:45)
[2017-03-11] MEDS ORDERED: POTASSIUM PHOSPHATE MONOBASIC 500 MG TAB PO/TUBE PRN (08:45)
[2017-03-11] MEDS ORDERED: POTASSIUM CHLOR 20 MEQ PREMIX 100 ML IV PRN (08:45)
[2017-03-11] MEDS ORDERED: POTASSIUM PHOSPHATE INJ 30 MMOL in SODIUM CHLOR 0.9% 250 ML INJ 250 ML IV PRN (08:45)
[2017-03-11] MEDS ORDERED: POTASSIUM PHOSPHATE MONOBASIC 500 MG TAB PO PRN (08:45)
[2017-03-11] MEDS ORDERED: SODIUM PHOSPHATE INJ 30 MMOL in SODIUM CHLOR 0.9% 250 ML INJ 240 ML IV PRN (08:45)
--- NOTE | 2017-03-11 08:49 | HHI.CCPN ---
Subjective Remarks/Hospital Course The patient is a 82-year-old female with past medical history of coronary artery disease, CABG, history of left-sided breast cancer, hyperlipidemia, gastroesophageal reflux disease, hypertension, who presented to [facility] ED via EMS for respiratory failure. Upon arrival of EMS, the patient was found hypoxic with a pulse ox of 74%. On arrival to the ED she was tachycardic, tachypneic with labored breathing and unable to lay flat. She was subsequently intubated with etomidate, succinylcholine and placed on full mechanical ventilation. Chest x-ray post intubation showed ET tube at the tip of the muriel oriented toward the right mainstem bronchus, patchy airspace consolidation in the right upper lobe and in the lower lobes bilaterally. Her laboratory data is significant for leukocytosis with a WBC of 14.9. Lactic acid level measured at 1.9. In the ER she was given bronchodilator treatment, Solu-Medrol 125 mg IV push, Aztreonam, Tobramycin, Lasix and scheduled to receive one dose of vancomycin. The patient also was given Lasix 40 mg IV push x1 and Flagyl. CT scan of the chest was obtained which showed ET tube tip just in the right mainstem bronchus, moderate to large bilateral pleural effusions with associated compressive atelectasis in the lung bases and patchy airspace disease in the right upper lobe and right middle lobe. When seen the patient is sedated with Diprivan and on full mechanical ventilation. ABG post- intubation showed a pH of 7.49, CO2 35, pAO2 310, bicarb of 27, saturation 98% on assist control ventilation with a rate of 14, tidal volume 550, PEEP of 5, 100% FIO2. 03/11 Patient remains sedated with Diprivan and intubated. Patient went into Afib with RVR last night given Lopressor and placed on Amio drip. Afebrile. s/p CT guided right sided paracentsis with removal 500ml straw colored fluid. Objective Vital Signs Date Time Temp Pulse Resp B/P Pulse Ox O2 Delivery O2 Flow Rate FiO2 03/11/17 07:56 99 40 03/11/17 07:00 97.8 124 14 128/82 03/10/17 11:41 Ventilator Intake and Output 03/10/17 03/10/17 03/11/17 08:00 16:00 00:00 Output Total 1500 ml Balance -1500 ml Result Diagram: 03/11/17 0503 03/11/17 0503 Other Results Laboratory Tests Test 03/10/17 03/10/17 03/10/17 03/10/17 10:00 14:53 18:45 19:30 Lactic Acid Level 1.9 mmol/L Troponin I 0.14 NG/ML Pleural Fluid pH 8.0 Pleural Fluid WBC 369 /MM3 Pleural Fluid RBC 1539 /MM3 Pleural Fluid Neutrophils 2 % Pleural Fluid Lymphocytes 89 % Pleural Fluid Monocytes 7 % Pleural Fluid Eosinophils 1 % Pleural Fluid Mesothelial 1 % Cells Nasal Screen MRSA (PCR) MRSA NOT DETECTED Test 03/11/17 05:03 White Blood Count 13.2 TH/MM3 Red Blood Count 3.82 MIL/MM3 Hemoglobin 10.7 GM/DL Hematocrit 32.2 % Mean Corpuscular Volume 84.3 FL Mean Corpuscular Hemoglobin 28.0 PG Mean Corpuscular Hemoglobin 33.3 % Concent Red Cell Distribution Width 15.0 % Platelet Count 298 TH/MM3 Mean Platelet Volume 8.5 FL Neutrophils (%) (Auto) 88.2 % Lymphocytes (%) (Auto) 5.5 % Monocytes (%) (Auto) 6.1 % Eosinophils (%) (Auto) 0.0 % Basophils (%) (Auto) 0.2 % Neutrophils # (Auto) 11.6 TH/MM3 Lymphocytes # (Auto) 0.7 TH/MM3 Monocytes # (Auto) 0.8 TH/MM3 Eosinophils # (Auto) 0.0 TH/MM3 Basophils # (Auto) 0.0 TH/MM3 CBC Comment DIFF FINAL Differential Comment Sodium Level 140 MEQ/L Potassium Level 3.0 MEQ/L Chloride Level 104 MEQ/L Carbon Dioxide Level 25.7 MEQ/L Anion Gap 10 MEQ/L Blood Urea Nitrogen 17 MG/DL Creatinine 0.68 MG/DL Estimat Glomerular Filtration 83 ML/MIN Rate Random Glucose 151 MG/DL Calcium Level 8.4 MG/DL Total Bilirubin 0.4 MG/DL Aspartate Amino Transf 32 U/L (AST/SGOT) Alanine Aminotransferase 28 U/L (ALT/SGPT) Alkaline Phosphatase 125 U/L Total Protein 5.8 GM/DL Albumin 2.2 GM/DL Random Vancomycin Level 5.3 COMMENT Imaging Last Impressions Chest X-Ray 03/10/171929 Signed Impressions: Service Date/Time: Friday, March 10, 2017 19:27 - CONCLUSION: 1. Interim thoracentesis on the right without evidence of pneumothorax or other acute complication. There is upper lobe predominant consolidation of the right lung again noted. 2. Basilar consolidation and small to moderate pleural effusion on the left not significantly changed. 3. Persistent right mainstem bronchus intubation. Osman Menjivar MD Thoracentesis 03/10/17 0000 Signed Impressions: Service Date/Time: Friday, March 10, 2017 18:20 - CONCLUSION: Uncomplicated CT-guided thoracentesis. 500 cc of pleural fluid was removed from the right chest. Juan Mcgregor MD Chest CT 03/10/17 0000 Signed Impressions: Service Date/Time: Friday, March 10, 2017 11:51 - CONCLUSION: 1. ETT tip just in the right mainstem bronchus and should be retracted. 2. Moderate to large bilateral pleural effusions with associated compressive atelectasis at the lung bases. 3. Patchy airspace disease in the right upper lobe and anterior right middle lobe consistent with pneumonia. 4. Ancillary findings include dense coronary artery calcifications, prior cholecystectomy, and degenerative spondylosis of the thoracic spine. Jc Montana MD Objective Remarks GENERAL: Patient is 82 yo intubated and sedated SKIN: Warm and dry. HEAD: Normocephalic. EYES: No scleral icterus. No injection or drainage. NECK: Supple, trachea midline. No JVD or lymphadenopathy. CARDIOVASCULAR: Regular rate and rhythm without murmurs, gallops, or rubs. RESPIRATORY: Breath sounds equal bilaterally. No accessory muscle use. GASTROINTESTINAL: Abdomen soft, non-tender, nondistended. MUSCULOSKELETAL: No cyanosis, or edema. Neuro: Sedated. A/P Assessment and Plan 1. VDRF 2. Multilobar pneumonia. 3. Bilateral pleural effusions with compressive atelectasis. s/p right thoracentesis with removal 500ml. 4. Leukocytosis. 5. Hyperglycemia. 6. Elevated AST. 7. History of coronary artery disease and CABG. 8. History of hypertension. 9. Hyperlipidemia. 10. GERD. 11. History of breast cancer. 12 Afib RVR Plan Neuro: On Diprivan infusion for sedation and daily sedation vacation . Pulm: Continue with vent support and maintain sats >92%. Check CXR Bronchodilators, ICU vent bundle. Start spontaneous breathing trials s/p CT-guided right thoracentesis with removal 500ml straw colored fluid. Follow up on pleural fuid analysis/cx/cytology CV: Place on Lopressor 25mg Q12. Monitor heart rate and blood pressure and maintain MAP >65 mmHg. Lactic acid level measured at 1.9. Continue with Amio drip. Check 2D echo to eval LV function. : Monitor renal function, Is and Os and electrolyte replacement per protocol. GI: on Pepcid 10 mg IV q. 12 , Glucerna 1.5 with goal rate of 45 mL an hour. ID: Continue with abx (vancomycin, aztreonam, add Levaquin). Monitor for signs of infections( fever and WBC). Nasal washing for influenza A and B antigen are negative. Follow up on sputum and blood cultures. Strep pneumonia and Legionella urinary antigen negative. ID service is consulted Endo: SSI with Accu-Chek q. 6-hour for glycemic control. Check TSH Heme: Monitor CBC. GI prophylaxis with Pepcid 10 mg IV q. 12. DVT prophylaxis with SCDs and heparin subcu. Level 3 Sonya Osorio MD Mar 11, 2017 08:49
[2017-03-11] MEDS: METOPROLOL TARTRATE 25 MG TAB PO SCH ×2 (09:23→19:46)
[2017-03-11] MEDS: VANCOMYCIN INJ 1,250 MG in SODIUM CHLOR 0.9% 250 ML INJ 250 ML IV SCH (09:23)
[2017-03-11] MEDS: POTASSIUM CHLOR 20 MEQ PREMIX 100 ML IV PRN ×4 (09:41→17:21)
--- NOTE | 2017-03-11 10:14 | RADRPT ---
EXAM DATE/TIME: 03/11/2017 09:05 [facility] COMPARISON: CHEST SINGLE AP, March 10, 2017, 7:43. INDICATIONS : Ventilator dependent respiratory failure. MEDICAL HISTORY : None. SURGICAL HISTORY : None. ENCOUNTER: Subsequent ACUITY: 2 days PAIN SCORE: Non-responsive. LOCATION: chest FINDINGS: The tip in the endotracheal tube remains close to the muriel, approximately 8 mm above the muriel. G astric tube traverses the [id number]. There is persisting consolidation in the left lower lung wi th loss of delineation left hemidiaphragm. Patchy areas of infiltrate in the right lung are less pro minent than on prior. Chronic deformity right proximal humerus. CONCLUSION: ET tube tip is still close to the muriel and needs to be withdrawn 1 cm. Persistent left lower lobe consolidation. August Small MD on March 11, 2017 at 10:11 Board Certified Radiologist. This report was verified electronically.
--- NOTE | 2017-03-11 10:21 | PD.CONS ---
History of Present Illness Service Infectious Disease Consult Requested By Dr Osorio Reason for Consult Evaluate patient with sepsis and pneumonia Primary Care Physician Unknown Diagnoses: History of Present Illness Patient seen and examined. Records reviewed. Patient is an 82-year-old female with multiple medical problem, presented to the hospital for evaluation of severe shortness of breath. According to the , the patient has been sick for several days with cough and congestion. She denied any sore throat or any chest pain. There was no episode of nausea or vomiting, or syncope. She has not had any urinary complaints. She has not been around any sick children. The is also not having any symptoms. On the day of admission she was very short of breath, and the mentioned that she was shaking. EMS was called and patient was found to be hypoxic. She was brought into the hospital and ended up getting intubated. Chest x-ray post intubation showed ET tube at the tip of the muriel oriented toward the right mainstem bronchus, patchy airspace consolidation in the right upper lobe and in the lower lobes bilaterally. Her laboratory data is significant for leukocytosis with a WBC of 14.9. Lactic acid level measured at 1.9. Her BP is okay. Since admission she has not been febrile. Her white count remains elevated. She is currently on the vent and sedated. She atrial fib with RVR last night Infectious disease consultation is requested to evaluate the patient. Review of Systems Constitutional: COMPLAINS OF: Fatigue, Chills, Change in appetite, DENIES: Fever Eyes: DENIES: Eye pain Ears, nose, mouth, throat: DENIES: Nasal discharge, Oral lesions, Throat pain, Ear Pain, Sinus Pain Respiratory: COMPLAINS OF: Cough, Sputum production, Shortness of breath Cardiovascular: DENIES: Chest pain, Syncope Gastrointestinal: DENIES: Abdominal pain, Diarrhea, Nausea, Vomiting Genitourinary: DENIES: Dysuria Musculoskeletal: COMPLAINS OF: Joint pain Integumentary: DENIES: Rash Psychiatric: DENIES: Hallucinations Past Family Social History Allergies: Coded Allergies: Amlodipine (Unverified Allergy, Severe, swellings in the legs, 03/29/14) Azithromycin (Verified Allergy, Severe, 03/29/14) unknown Darvon (Verified Allergy, Severe, LIGHT HEADED, 03/29/14) Naproxen (Verified Allergy, Severe, DIZZINESS, 03/29/14) Penicillin (Verified Allergy, Severe, Rash, 03/29/14) Protonix (Verified Allergy, Severe, 03/29/14) pt states its ok to take Sulfa (Verified Allergy, Severe, Hives, 03/29/14) CONFIRM? Zetia (Unverified Allergy, Severe, RASH, 03/29/14) CRESTOR (Unverified Allergy, Unknown, legs aching, 03/29/14) Lipitor (Verified Adverse Reaction, Severe, MUSCLE ACHES, JOINT SORENESS, 03/29/14) pt states its ok to take Zocor (Verified Adverse Reaction, Severe, MUSCLE ACHES, JOINT SORENESS, ) Uncoded Allergies: LOTEMAX (Allergy, Severe, eye lids get sore, 03/25/14) STATINS (Adverse Reaction, Intermediate, MUSCLE CRAMPS LEGS AND SORENESS IN JOINTS, 09/13/10) Past Medical History Coronary artery disease. Hypertension. Gastroesophageal reflux disease. Arthritis. Severe, has gotten shots on her R hip, being evaluated for her L hip History of CVA. Hyperlipidemia. History of left breast cancer. Past Surgical History Left breast lumpectomy. Back surgery. Cholecystectomy. CABG x3. Bilateral lens implants. Tonsillectomy. Cataract surgery. Active Ordered Medications Albuterol Cordarone Azactam Pepcid Heparin Magnesia Lopressor Potassium Propofol Vancomycin Social History , lives with No smoking No ETOH abuse No substance abuse Physical Exam Vital Signs Vital Signs Date Time Temp Pulse Resp B/P Pulse Ox O2 Delivery O2 Flow Rate FiO2 03/11/17 09:08 40 03/11/17 08:00 128 03/11/17 07:56 99 40 03/11/17 07:00 97.8 124 14 128/82 100 03/11/17 04:23 97 40 03/11/17 03:00 98.2 72 14 134/78 100 03/11/17 01:19 97 40 03/10/17 23:21 97 40 03/10/17 23:00 97.6 73 16 170/82 100 03/10/17 21:55 98 40 03/10/17 19:34 99.1 144 13 121/79 96 03/10/17 19:14 100 100 03/10/17 18:08 97 03/10/17 17:25 95 40 03/10/17 12:15 96 100 6/5/17 11:41 135 14 109/56 96 Ventilator 40 03/10/17 11:22 96 40 Physical Exam GENERAL: Patient is an obese, well-developed CF, sedated on the vent, not in respiratory distress. SKIN: Warm and dry. No generalized rash, no ecchymoses and no evidence of embolic lesions. HEAD: Atraumatic. Normocephalic. No temporal wasting, or tenderness. EYES: [place] conjunctiva. No petechia or hemorrhage. Pupils equal, round and reactive to light. No scleral icterus. No injection or drainage. EARS, NOSE AND THROAT: Nose without bleeding or purulent nasal discharge. No sinus tenderness. She is orally intubated. NECK: Trachea midline. Supple and not tender, no meningeal signs CARDIOVASCULAR: Regular rate and rhythm. No murmurs, rubs or gallops heard RESPIRATORY: Coarse breath sounds bilaterally. Decreased at the bases. Breath sounds equal bilaterally. ABDOMEN: Soft, obese, nondistended. No reaction to deep palpation. Bowel sounds present and normoactive. No guarding. No rebound. No organomegaly. EXTREMITIES: No clubbing, cyanosis, or edema. No joint effusion, has good ROM. No calf tenderness. Her feet are cool. NEUROLOGICAL: Sedated on the vent. No Babinski.. PSYCHIATRIC: Unable to assess LINE: No evidence of infection : Smith in place, and urine seems cloudy and with sediment. Laboratory Laboratory Tests Test 03/10/17 03/10/17 03/10/17 03/11/17 14:53 18:45 19:30 05:03 Troponin I 0.14 Pleural Fluid pH 8.0 Pleural Fluid WBC 369 Pleural Fluid RBC 1539 Pleural Fluid Neutrophils 2 Pleural Fluid Lymphocytes 89 Pleural Fluid Monocytes 7 Pleural Fluid Eosinophils 1 Pleural Fluid Mesothelial 1 Cells Nasal Screen MRSA (PCR) MRSA NOT DETECTED White Blood Count 13.2 Red Blood Count 3.82 Hemoglobin 10.7 Hematocrit 32.2 Mean Corpuscular Volume 84.3 Mean Corpuscular Hemoglobin 28.0 Mean Corpuscular Hemoglobin 33.3 Concent Red Cell Distribution Width 15.0 Platelet Count 298 Mean Platelet Volume 8.5 Neutrophils (%) (Auto) 88.2 Lymphocytes (%) (Auto) 5.5 Monocytes (%) (Auto) 6.1 Eosinophils (%) (Auto) 0.0 Basophils (%) (Auto) 0.2 Neutrophils # (Auto) 11.6 Lymphocytes # (Auto) 0.7 Monocytes # (Auto) 0.8 Eosinophils # (Auto) 0.0 Basophils # (Auto) 0.0 CBC Comment DIFF FINAL Differential Comment Sodium Level 140 Potassium Level 3.0 Chloride Level 104 Carbon Dioxide Level 25.7 Anion Gap 10 Blood Urea Nitrogen 17 Creatinine 0.68 Estimat Glomerular Filtration 83 Rate Random Glucose 151 Calcium Level 8.4 Phosphorus Level 2.9 Total Bilirubin 0.4 Aspartate Amino Transf 32 (AST/SGOT) Alanine Aminotransferase 28 (ALT/SGPT) Alkaline Phosphatase 125 Total Protein 5.8 Albumin 2.2 Random Vancomycin Level 5.3 Date/Time Procedure Status Source Growth 03/10/17 18:45 Gram Stain - Final Resulted Fluid Pleural Fluid 03/10/17 18:45 Body Fluid Culture Resulted Fluid Pleural Fluid Pending 03/10/17 18:45 Fungal Smear Received Fluid Pleural Fluid Pending 03/10/17 18:45 Fungal Culture Received Fluid Pleural Fluid Pending 03/10/17 18:45 Acid Fast Stain Received Fluid Pleural Fluid Pending 03/10/17 18:45 Mycobacterial Culture Received Fluid Pleural Fluid Pending 03/10/17 14:05 Cancelled Sputum Oral Tracheal Aspirate 03/10/17 07:25 Influenza Types A,B Antigen (CARLITO) - Final Complete Nasal Washing NEGATIVE FOR FLU A AND B ANTIGEN.... 03/10/17 07:25 Aerobic Blood Culture Received Blood Peripheral Pending 03/10/17 07:25 Anaerobic Blood Culture Received Blood Peripheral Pending 03/10/17 07:20 Legionella Antigen - Final Complete Urine Catheterized Urine PRESUMPTIVE NEGATIVE FOR LEGIONELLA P... 03/10/17 07:20 Streptococcus pneumoniae Antigen (M - Final Complete Urine Catheterized Urine PRESUMPTIVE NEGATIVE FOR STREPTOCOCCU... Result Diagram: 03/11/17 0503 03/11/17 0503 Imaging Last Impressions Chest X-Ray 03/10/17 193 Signed Impressions: Service Date/Time: Friday, March 10, 2017 19:27 - CONCLUSION: 1. Interim thoracentesis on the right without evidence of pneumothorax or other acute complication. There is upper lobe predominant consolidation of the right lung again noted. 2. Basilar consolidation and small to moderate pleural effusion on the left not significantly changed. 3. Persistent right mainstem bronchus intubation. Osman Menjivar MD Thoracentesis 03/10/17 0000 Signed Impressions: Service Date/Time: Friday, March 10, 2017 18:20 - CONCLUSION: Uncomplicated CT-guided thoracentesis. 500 cc of pleural fluid was removed from the right chest. Juan Mcgregor MD Chest CT 03/10/17 0000 Signed Impressions: Service Date/Time: Friday, March 10, 2017 11:51 - CONCLUSION: 1. ETT tip just in the right mainstem bronchus and should be retracted. 2. Moderate to large bilateral pleural effusions with associated compressive atelectasis at the lung bases. 3. Patchy airspace disease in the right upper lobe and anterior right middle lobe consistent with pneumonia. 4. Ancillary findings include dense coronary artery calcifications, prior cholecystectomy, and degenerative spondylosis of the thoracic spine. Jc Montana MD Assessment and Plan Assessment and Plan IMPRESSION Sepsis on admission due to CAP Community acquired Pneumonia, came from home Respiratory failure Hx CAD, HTN Multiple Abx allergy - has received cephalosporins in the past RECOMMENDATION Continue empiric Abx: On Vanco and Azactam - will cover pathogens for CAP Add Levaquin for atypical coverage Follow C/S and adjust Abx Monitor progress Will adjust Abx once work-up completed and cultures available I will follow along with you Thank you for this consultation Discussed Condition With Spoke with Radha Hawthorne MD Mar 11, 2017 10:21
[2017-03-11] MEDS: LEVOFLOXACIN 750 MG PREMIX INJ 150 ML IV SCH (11:41)
--- NOTE | 2017-03-11 17:58 | ECHRPT ---
Indication: EVAL LV FUNCTION CONCLUSIONS The left ventricular systolic function is moderately reduced with an estimated ejection fraction in the range of 40-45%.The left atrial size is [id number] dilated.moderate mitral valve regurgitation.There is mild to moder ate tricuspid valve regurgitation.Trivial pulmonary valve regurgitation.A small left sided pleural effusion is noted. BP: 128 / 82 HR: 73 Rhythm: Sinus MEASUREMENTS (Male / Female) Normal Values Technical Quality:Fair 2D ECHO LV Diastolic Diameter PLAX 4.4 cm 4.2 - 5.9 / 3.9 - 5.3 cm LV Systolic Diameter PLAX 3.6 cm IVS Diastolic Thickness 1.0 cm 0.6 - 1.0 / 0.6 - 0.9 cm LVPW Diastolic Thickness 1.0 cm 0.6 - 1.0 / 0.6 - 0.9 cm LV Relative Wall Thickness 0.4 LVOT Diameter 1.8 cm M-MODE Aortic Root Diameter MM 2.7 cm LA Systolic Diameter MM 4.5 cm LA Ao Ratio MM 1.7 AV Cusp Separation MM 1.4 cm DOPPLER AV Peak Velocity 96.6 cm/s AV Peak Gradient 3.7 mmHg LVOT Peak Velocity 70.6 cm/s LVOT Peak Gradient 2.0 mmHg AV Area Cont Eq pk 1.9 cm MR Peak Velocity 467.5 cm/s MR Peak Gradient 87.4 mmHg LV E' Lateral Velocity 8.4 cm/s LV E' Septal Velocity 6.0 cm/s TR Peak Velocity 305.0 cm/s TR Peak Gradient 37.2 mmHg PV Peak Velocity 71.9 cm/s PV Peak Gradient 2.1 mmHg FINDINGS Left Ventricle The left ventricular systolic function is moderately reduced with an estimated ejection fraction in the range of 40-45%. Right Ventricle Normal right ventricular size and systolic function. Left Atrium The left atrial size is tykv-[id number] dilated. Right Atrium The right atrial size is normal. Atrial Septum Normal atrial septal thickness without atrial level shunting by limited color doppler interrogation. Aorta The aortic root and proximal ascending aorta are normal in size on limited imaging. Mitral Valve moderate mitral valve regurgitation. Aortic Valve Trileaflet aortic valve. No aortic valve stenosis or regurgitation. Tricuspid Valve There is mild to moderate tricuspid valve regurgitation. Pulmonary Valve Trivial pulmonary valve regurgitation. Vessels The inferior vena cava is normal in size. Pericardium A small left sided pleural effusion is noted. German Moser MD, FACC, [facility] [place] Edited by: Birdback CV Plate Put In Worker (Electronically Signed) Final Date:11 March 2017 16:32 Amended: 11 March 2017 17:50
--- NOTE | 2017-03-11 21:55 | EKG ---
Date Performed: 03/10/2017 Time Performed: 07:20:56 PTAGE: 82 years EKG: SINUS TACHYCARDIA POSSIBLE LEFT ATRIAL ENLARGEMENT NONSPECIFIC ST & T-WAVE ABNORMALITY Sinc e previous tracing, no significant change noted ABNORMAL RHYTHM ECG PREVIOUS TRACING : 09/29/2011 12.54 DOCTOR: Amanuel Wallis Interpretating Date/Time 03/11/2017 21:53:25
[2017-03-12] VITALS (31 sets, daily range): BP systolic 84–173; BP diastolic 50–93; PULSE 77–124; RESP 12–39; TEMP 97.6–101; O2SAT 21–98
[2017-03-12] MEDS: AZTREONAM INJ 2,000 MG in SODIUM CHLORIDE 0.9% INJ 100 ML IV SCH ×3 (00:47→17:00)
[2017-03-12] MEDS: FAMOTIDINE 20 MG/2 ML VIAL IV PUSH SCH ×2 (00:48→14:05)
[2017-03-12] MEDS: PROPOFOL 1000 MG/100 ML BTL IV SCH ×3 (01:02→18:39)
[2017-03-12] MEDS: HEPARIN SODIUM - SQ 10,000 UNITS/ML VIAL SQ SCH ×2 (01:02→14:05)
[2017-03-12] MEDS: AMIODARONE INJ 450 MG in D5W (EXCEL BAG) 241 ML IV SCH (01:15)
[2017-03-12] MEDS: INSULIN NovoLIN REGULAR SUPPLEMENTAL SCALE SQ SCH ×4 (01:19→20:00)
[2017-03-12] MEDS: RESP: ALBUTEROL 2.5 MG/IPRATROPIUM 0.5 MG NEB (SCH) INH ×4 (01:45→21:01)
[2017-03-12 03:24] LABS: BODY FLUID LDH 166 U/L (()); BODY FLUID LDH SOURCE PLEURAL (())
[2017-03-12] MEDS: CHLORHEXIDINE GLUCONATE 2 % 1 PACK (2 CLOTHS) TOP SCH (04:00)
[2017-03-12] MEDS: VANCOMYCIN INJ 1,250 MG in SODIUM CHLOR 0.9% 250 ML INJ 250 ML IV SCH ×2 (04:00→20:33)
[2017-03-12 05:39] LABS: AUTOMATED NEUTROPHIL # 9.2 TH/MM3 (1.8-7.7); BASOPHIL % 0.2 % (0.0-2.0); EOSINOPHIL # 0.1 TH/MM3 (0-0.4); EOSINOPHIL % 0.6 % (0.0-4.0); HEMATOCRIT 35.2 % (35.0-46.0); HEMO FLAGS DIFF FINAL; LYMPH % 16.2 % (9.0-44.0); MEAN CELL VOLUME 84.8 FL (80.0-100.0); MEAN CORPUSCULAR HEMOGLOBIN 27.9 PG (27.0-34.0); MEAN CORPUSCULAR HGB CONC 32.9 % (32.0-36.0); MONO % 8.4 % (0.0-8.0); NEUT % 74.6 % (16.0-70.0); PLATELET COUNT 337 TH/MM3 (150-450); RED BLOOD COUNT 4.14 MIL/MM3 (4.00-5.30); RED CELL DISTRIBUTION WIDTH 14.8 % (11.6-17.2); WHITE BLOOD COUNT 12.3 TH/MM3 (4.0-11.0)
[2017-03-12 06:03] LABS: MAGNESIUM 2.5 MG/DL (1.5-2.5); POTASSIUM 4.5 MEQ/L (3.5-5.1)
[2017-03-12] MEDS: METOPROLOL TARTRATE 25 MG TAB PO SCH ×2 (08:08→16:59)
[2017-03-12] MEDS: LEVOFLOXACIN 750 MG PREMIX INJ 150 ML IV SCH (10:26)
[2017-03-12] MEDS ORDERED: FUROSEMIDE 40 MG/4 ML VIAL IV PUSH ONE (14:00)
[2017-03-12] MEDS: AMIODARONE 200 MG TAB PO SCH ×2 (14:04→20:32)
[2017-03-12] MEDS: OLANZapine 2.5 MG TAB PO SCH ×2 (14:39→20:32)
--- NOTE | 2017-03-12 16:52 | HHI.CCPN ---
Subjective Remarks/Hospital Course The patient is a 82-year-old female with past medical history of coronary artery disease, CABG, history of left-sided breast cancer, hyperlipidemia, gastroesophageal reflux disease, hypertension, who presented to [facility] ED via EMS for respiratory failure. Upon arrival of EMS, the patient was found hypoxic with a pulse ox of 74%. On arrival to the ED she was tachycardic, tachypneic with labored breathing and unable to lay flat. She was subsequently intubated with etomidate, succinylcholine and placed on full mechanical ventilation. Chest x-ray post intubation showed ET tube at the tip of the muriel oriented toward the right mainstem bronchus, patchy airspace consolidation in the right upper lobe and in the lower lobes bilaterally. Her laboratory data is significant for leukocytosis with a WBC of 14.9. Lactic acid level measured at 1.9. In the ER she was given bronchodilator treatment, Solu-Medrol 125 mg IV push, Aztreonam, Tobramycin, Lasix and scheduled to receive one dose of vancomycin. The patient also was given Lasix 40 mg IV push x1 and Flagyl. CT scan of the chest was obtained which showed ET tube tip just in the right mainstem bronchus, moderate to large bilateral pleural effusions with associated compressive atelectasis in the lung bases and patchy airspace disease in the right upper lobe and right middle lobe. When seen the patient is sedated with Diprivan and on full mechanical ventilation. ABG post- intubation showed a pH of 7.49, CO2 35, pAO2 310, bicarb of 27, saturation 98% on assist control ventilation with a rate of 14, tidal volume 550, PEEP of 5, 100% FIO2. 03/11 Patient remains sedated with Diprivan and intubated. Patient went into Afib with RVR last night given Lopressor and placed on Amio drip. Afebrile. s/p CT guided right sided paracentsis with removal 500ml straw colored fluid. 03/12: sedation improved, but on sedation vacation and SBT, patient became significantly agitated, and then hypoxic. also back into afib rvr requiring amiodarone. Objective Vital Signs Date Time Temp Pulse Resp B/P Pulse Ox O2 Delivery O2 Flow Rate FiO2 03/12/17 16:29 21 40 03/12/17 12:30 77 26 162/81 03/12/17 12:00 100.1 03/10/17 11:41 Ventilator Intake and Output 03/11/17 03/11/17 03/12/17 08:00 16:00 00:00 Intake Total 1000 ml 1565 ml 1379 ml Output Total 200.0 ml 250 ml 200 ml Balance 800.0 ml 1315 ml 1179 ml Result Diagram: 03/12/17 0434 03/12/17 0434 Other Results Microbiology Date/Time Procedure Status Source Growth 03/10/17 07:20 Legionella Antigen - Final Complete Urine Catheterized Urine PRESUMPTIVE NEGATIVE FOR LEGIONELLA P... 03/10/17 07:20 Streptococcus pneumoniae Antigen (M - Final Complete Urine Catheterized Urine PRESUMPTIVE NEGATIVE FOR STREPTOCOCCU... 03/10/17 07:25 Influenza Types A,B Antigen (CARLITO) - Final Complete Nasal Washing NEGATIVE FOR FLU A AND B ANTIGEN.... 03/10/17 14:05 Gram Stain - Final Complete Sputum Endotracheal 03/10/17 14:05 Sputum Culture - Final Complete Sputum Endotracheal HEAVY GROWTH NORMAL RESPIRATORY EVANGELISTA Imaging Last Impressions Chest X-Ray 03/10/17 1930 Signed Impressions: Service Date/Time: Friday, March 10, 2017 19:27 - CONCLUSION: 1. Interim thoracentesis on the right without evidence of pneumothorax or other acute complication. There is upper lobe predominant consolidation of the right lung again noted. 2. Basilar consolidation and small to moderate pleural effusion on the left not significantly changed. 3. Persistent right mainstem bronchus intubation. Osman Menjivar MD Thoracentesis 03/10/17 0000 Signed Impressions: Service Date/Time: Friday, March 10, 2017 18:20 - CONCLUSION: Uncomplicated CT-guided thoracentesis. 500 cc of pleural fluid was removed from the right chest. Juan Mcgregor MD Chest CT 03/10/17 0000 Signed Impressions: Service Date/Time: Friday, March 10, 2017 11:51 - CONCLUSION: 1. ETT tip just in the right mainstem bronchus and should be retracted. 2. Moderate to large bilateral pleural effusions with associated compressive atelectasis at the lung bases. 3. Patchy airspace disease in the right upper lobe and anterior right middle lobe consistent with pneumonia. 4. Ancillary findings include dense coronary artery calcifications, prior cholecystectomy, and degenerative spondylosis of the thoracic spine. Jc Bozorgmanesh, MD Objective Remarks GENERAL: Patient is 82 yo intubated and sedated SKIN: Warm and dry. HEAD: Normocephalic. EYES: No scleral icterus. No injection or drainage. NECK: trachea midline. No JVD. CARDIOVASCULAR: tachycardic rate, irregularly irregular rhythm. afib by tele. RESPIRATORY: equal chest rise. No accessory muscle use. GASTROINTESTINAL: Abdomen soft, non-tender, nondistended. MUSCULOSKELETAL: No cyanosis, or edema. Neuro: RASS -2. fc x 4. A/P Assessment and Plan Assessment: 82yF with multilobar pneumonia complicated by acute hypoxic respiratory failure, atrial fibrillation with rapid ventricular response, pleural effusion. remains critically ill. off pathway. failing SBT for agitation, but also now difficult to control ventricular rate. 1. Acute hypoxic respiratory failure 2. Multilobar pneumonia. 3. Bilateral pleural effusions with compressive atelectasis. s/p right thoracentesis with removal 500ml. 4. Leukocytosis. 5. Hyperglycemia. 6. Elevated AST. 7. History of coronary artery disease and CABG. 8. History of hypertension. 9. Hyperlipidemia. 10. GERD. 11. History of breast cancer. 12 Afib RVR 13 Agitated Delirium 14 acute intravascular volume overload Plan Neuro: On Diprivan infusion for sedation and daily sedation vacation . will add fentanyl for improved sedation. also start zyprexa 2.5mg po q8h for agitated delirium. melatonin 5mg po qhs for improved sleep-wake cycle. Pulm: Continue with vent support and maintain sats >92%. Bronchodilators, ICU vent bundle. Start spontaneous breathing trials s/p CT-guided right thoracentesis with removal 500ml straw colored fluid. Follow up on pleural fuid analysis/cx/cytology failing SBTs for agitation. continue daily SBTs. CV: Increase lopressor to 25mg po q6hr transition from amio drip to po amio 200mg bid bolus diltiazem 10mg iv x 1 and start diltiazem 60 po q6h. : Monitor renal function, Is and Os and electrolyte replacement per protocol. Lasix 40mg iv x 1 for volume overload. GI: on Pepcid 10 mg IV q. 12 , Glucerna 1.5 with goal rate of 45 mL an hour. ID: Continue with abx (vancomycin, aztreonam, Levaquin). Nasal washing for influenza A and B antigen are negative. Follow up on sputum and blood cultures. Strep pneumonia and Legionella urinary antigen negative. ID service is consulted Endo: SSI with Accu-Chek q. 6-hour for glycemic control. Heme: Monitor CBC. GI prophylaxis with Pepcid 10 mg IV q. 12. DVT prophylaxis with SCDs and heparin subcu. This patient remains critically ill with one or more organ systems which are or may become a threat to life. I have spent in excess of 41 minutes discontinuously in the care and management of this patient. This time is exclusive of procedures, and includes, but is not limited to, evaluation of the patient, review of the medical record, discussions with family, consultants, nursing staff, or respiratory therapy, and documentation in the medical record. Mata Branch MD Mar 12, 2017 16:52
[2017-03-12] MEDS: DILTIAZEM HCL 60 MG TAB PO SCH (16:59)
[2017-03-12] MEDS: fentaNYL DRIP 250 ML IV SCH (17:00)
[2017-03-12] MEDS ORDERED: DILTIAZEM HCL 25 MG/5 ML VIAL IV ONE (17:00)
[2017-03-12] MEDS: MELATONIN 5 MG TAB PO SCH (20:32)
[2017-03-12] MEDS ORDERED: PHARMACY ORDERED LAB ONE (21:45)
[2017-03-13] VITALS (33 sets, daily range): BP systolic 90–130; BP diastolic 50–85; PULSE 87–123; RESP 12–13; TEMP 96.8–100.4; O2SAT 92–98
[2017-03-13] MEDS: DILTIAZEM HCL 60 MG TAB PO SCH ×5 (00:11→23:54)
[2017-03-13] MEDS: HEPARIN SODIUM - SQ 10,000 UNITS/ML VIAL SQ SCH ×2 (00:12→13:17)
[2017-03-13] MEDS: FAMOTIDINE 20 MG/2 ML VIAL IV PUSH SCH ×3 (00:12→23:54)
[2017-03-13] MEDS: AZTREONAM INJ 2,000 MG in SODIUM CHLORIDE 0.9% INJ 100 ML IV SCH ×2 (00:24→08:17)
[2017-03-13] MEDS: INSULIN NovoLIN REGULAR SUPPLEMENTAL SCALE SQ SCH ×4 (02:00→20:00)
[2017-03-13] MEDS: RESP: ALBUTEROL 2.5 MG/IPRATROPIUM 0.5 MG NEB (SCH) INH ×4 (03:20→20:36)
[2017-03-13] MEDS: CHLORHEXIDINE GLUCONATE 2 % 1 PACK (2 CLOTHS) TOP SCH (04:00)
[2017-03-13 05:34] LABS: HEMATOCRIT 34.4 % (35.0-46.0); MEAN CELL VOLUME 85.4 FL (80.0-100.0); MEAN CORPUSCULAR HEMOGLOBIN 28.3 PG (27.0-34.0); MEAN CORPUSCULAR HGB CONC 33.2 % (32.0-36.0); PLATELET COUNT 282 TH/MM3 (150-450); RED BLOOD COUNT 4.03 MIL/MM3 (4.00-5.30); RED CELL DISTRIBUTION WIDTH 14.6 % (11.6-17.2); REVIEW FLAG FINAL; WHITE BLOOD COUNT 7.8 TH/MM3 (4.0-11.0)
[2017-03-13] MEDS: OLANZapine 2.5 MG TAB PO SCH ×3 (05:47→20:47)
[2017-03-13] MEDS: METOPROLOL TARTRATE 25 MG TAB PO SCH ×5 (05:47→23:55)
[2017-03-13 06:13] LABS: BICARBONATE 30.4 MEQ/L (21.0-32.0); POTASSIUM 3.6 MEQ/L (3.5-5.1)
[2017-03-13] MEDS: fentaNYL DRIP 250 ML IV SCH (06:43)
[2017-03-13] MEDS ORDERED: DIGOXIN 0.5 MG/2 ML VIAL IV PUSH ONE (07:30)
[2017-03-13] MEDS ORDERED: AMIODARONE INJ 150 MG in DEXTROSE 5% IN WATER 100ML INJ 97 ML IV ONE ×2 (07:30)
[2017-03-13] MEDS: FUROSEMIDE 40 MG/4 ML VIAL IV PUSH SCH ×2 (07:39→17:21)
[2017-03-13] MEDS: POTASSIUM CHLOR 20 MEQ PREMIX 100 ML IV SCH ×2 (07:41→09:36)
[2017-03-13] MEDS: MAGNESIUM SULFATE 1 GM PREMIX 100 ML IV SCH ×4 (07:41→12:04)
[2017-03-13] MEDS: AMIODARONE 200 MG TAB PO SCH ×2 (07:42→20:47)
[2017-03-13] MEDS: SODIUM CHLORIDE 0.9% FLUSH 10 ML FLUSH IVF PRN (07:42)
--- NOTE | 2017-03-13 08:12 | HHI.CCPN ---
Subjective Remarks/Hospital Course The patient is a 82-year-old female with past medical history of coronary artery disease, CABG, history of left-sided breast cancer, hyperlipidemia, gastroesophageal reflux disease, hypertension, who presented to [facility] ED via EMS for respiratory failure. Upon arrival of EMS, the patient was found hypoxic with a pulse ox of 74%. On arrival to the ED she was tachycardic, tachypneic with labored breathing and unable to lay flat. She was subsequently intubated with etomidate, succinylcholine and placed on full mechanical ventilation. Chest x-ray post intubation showed ET tube at the tip of the muriel oriented toward the right mainstem bronchus, patchy airspace consolidation in the right upper lobe and in the lower lobes bilaterally. Her laboratory data is significant for leukocytosis with a WBC of 14.9. Lactic acid level measured at 1.9. In the ER she was given bronchodilator treatment, Solu-Medrol 125 mg IV push, Aztreonam, Tobramycin, Lasix and scheduled to receive one dose of vancomycin. The patient also was given Lasix 40 mg IV push x1 and Flagyl. CT scan of the chest was obtained which showed ET tube tip just in the right mainstem bronchus, moderate to large bilateral pleural effusions with associated compressive atelectasis in the lung bases and patchy airspace disease in the right upper lobe and right middle lobe. When seen the patient is sedated with Diprivan and on full mechanical ventilation. ABG post- intubation showed a pH of 7.49, CO2 35, pAO2 310, bicarb of 27, saturation 98% on assist control ventilation with a rate of 14, tidal volume 550, PEEP of 5, 100% FIO2. 03/11 Patient remains sedated with Diprivan and intubated. Patient went into Afib with RVR last night given Lopressor and placed on Amio drip. Afebrile. s/p CT guided right sided paracentsis with removal 500ml straw colored fluid. 03/12: sedation improved, but on sedation vacation and SBT, patient became significantly agitated, and then hypoxic. also back into afib rvr requiring amiodarone. 03/13: still in atrial fibrillation. hypotensive this morning. still failing SBTs for agitation. Objective Vital Signs Date Time Temp Pulse Resp B/P Pulse Ox O2 Delivery O2 Flow Rate FiO2 03/13/17 07:55 96 40 03/13/17 04:00 97.1 104 12 90/50 03/10/17 11:41 Ventilator Intake and Output 03/12/17 03/12/17 03/13/17 08:00 16:00 00:00 Intake Total 1093 ml 2410 ml 972 ml Output Total 150 ml 3200 ml 1000 ml Balance 943 ml -790 ml -28 ml Result Diagram: 03/13/17 0416 03/13/17 0416 Other Results Microbiology Date/Time Procedure Status Source Growth 03/10/17 14:05 Gram Stain - Final Complete Sputum Endotracheal 03/10/17 14:05 Sputum Culture - Final Complete Sputum Endotracheal HEAVY GROWTH NORMAL RESPIRATORY EVANGELISTA 03/10/17 18:45 Gram Stain - Final Complete Fluid Pleural Fluid 03/10/17 18:45 Body Fluid Culture - Final Complete Fluid Pleural Fluid NO GROWTH IN 72 HRS.--AEROBICALLY OR ... Imaging Last Impressions Chest X-Ray 03/10/17 1930 Signed Impressions: Service Date/Time: Friday, March 10, 2017 19:27 - CONCLUSION: 1. Interim thoracentesis on the right without evidence of pneumothorax or other acute complication. There is upper lobe predominant consolidation of the right lung again noted. 2. Basilar consolidation and small to moderate pleural effusion on the left not significantly changed. 3. Persistent right mainstem bronchus intubation. Osman Menjivar MD Thoracentesis 03/10/17 0000 Signed Impressions: Service Date/Time: Friday, March 10, 2017 18:20 - CONCLUSION: Uncomplicated CT-guided thoracentesis. 500 cc of pleural fluid was removed from the right chest. Juan Mcgregor MD Chest CT 03/10/17 0000 Signed Impressions: Service Date/Time: Friday, March 10, 2017 11:51 - CONCLUSION: 1. ETT tip just in the right mainstem bronchus and should be retracted. 2. Moderate to large bilateral pleural effusions with associated compressive atelectasis at the lung bases. 3. Patchy airspace disease in the right upper lobe and anterior right middle lobe consistent with pneumonia. 4. Ancillary findings include dense coronary artery calcifications, prior cholecystectomy, and degenerative spondylosis of the thoracic spine. Jc Montana MD Objective Remarks GENERAL: Patient is 82 yo intubated and sedated SKIN: Warm and dry. HEAD: Normocephalic. EYES: No scleral icterus. No injection or drainage. NECK: trachea midline. +JVD. CARDIOVASCULAR: tachycardic rate, irregularly irregular rhythm. afib by tele. RESPIRATORY: equal chest rise. No accessory muscle use. GASTROINTESTINAL: Abdomen soft, non-tender, nondistended. MUSCULOSKELETAL: No cyanosis, or edema. Neuro: RASS -2. fc x 4. A/P Assessment and Plan Assessment: 82yF with multilobar pneumonia complicated by acute hypoxic respiratory failure, atrial fibrillation with rapid ventricular response, pleural effusion. remains critically ill. off pathway. failing SBT for agitation, but also now difficult to control ventricular rate. also hypotension which appears to be rate related and not volume status related. will aggressively attempt to control rate. 1. Acute hypoxic respiratory failure 2. Multilobar pneumonia. 3. Bilateral pleural effusions with compressive atelectasis. s/p right thoracentesis with removal 500ml. 4. Leukocytosis. 5. Hyperglycemia. 6. Elevated AST. 7. History of coronary artery disease and CABG. 8. History of hypertension. 9. Hyperlipidemia. 10. GERD. 11. History of breast cancer. 12 Afib RVR 13 Agitated Delirium 14 acute intravascular volume overload Plan Neuro: On fentanyl/propofol infusion for sedation and daily sedation vacation . zyprexa 2.5mg po q8h for agitated delirium. melatonin 5mg po qhs for improved sleep-wake cycle. Pulm: Continue with vent support and maintain sats >92%. Bronchodilators, ICU vent bundle. Start spontaneous breathing trials s/p CT-guided right thoracentesis with removal 500ml straw colored fluid. Follow up on pleural fuid analysis/cx/cytology failing SBTs for agitation. continue daily SBTs. CV: Increase lopressor to 37.5mg po q6hr po amio 200mg bid. add single additional bolus 150mg iv amio for improved rate control. increase diltiazem 90 po q6h. one time dose digoxin 0.25mg iv x 1. : Monitor renal function, Is and Os and electrolyte replacement per protocol. Lasix 40mg iv x 1 for volume overload. GI: on Pepcid 10 mg IV q. 12 , Glucerna 1.5 with goal rate of 45 mL an hour. ID: Continue with abx (vancomycin, aztreonam, Levaquin). would plan on full 7 day course if no culture data (anticipated stop date 03/16) Nasal washing for influenza A and B antigen are negative. Follow up on sputum and blood cultures. Strep pneumonia and Legionella urinary antigen negative. ID service is consulted Endo: SSI with Accu-Chek q. 6-hour for glycemic control. Heme: Monitor CBC. GI prophylaxis with Pepcid 10 mg IV q. 12. DVT prophylaxis with SCDs and heparin subcu. Given age and significant comorbidities, would ideally like to avoid anticoagulation for afib (CHADSVaSC > 2, but new-onset afib < 48h duration). if she converts in next 24h, will hold off, although she may need anticoagulation longer term. This patient remains critically ill with one or more organ systems which are or may become a threat to life. I have spent in excess of 35 minutes discontinuously in the care and management of this patient. This time is exclusive of procedures, and includes, but is not limited to, evaluation of the patient, review of the medical record, discussions with family, consultants, nursing staff, or respiratory therapy, and documentation in the medical record. Mata Branch MD Mar 13, 2017 08:12
[2017-03-13] MEDS: LEVOFLOXACIN 750 MG PREMIX INJ 150 ML IV SCH (09:35)
--- NOTE | 2017-03-13 14:15 | HHI.IDPN ---
Subjective Subjective Remarks 82 year old female, lives at home with , admitted for SOB, cough. Required intubation Notes reviewed Temps ok More ET secretions being suctioned now gets agitated when sedation lightened In AF Nothing (+) on C/S WBC down to normal Antibiotics Azactam Levaquin Vancomycin Past Medical History Coronary artery disease. Hypertension. Gastroesophageal reflux disease. Arthritis. Severe, has gotten shots on her R hip, being evaluated for her L hip History of CVA. Hyperlipidemia. History of left breast cancer. Past Surgical History Left breast lumpectomy. Back surgery. Cholecystectomy. CABG x3. Bilateral lens implants. Tonsillectomy. Cataract surgery. Allergies: Coded Allergies: Amlodipine (Unverified Allergy, Severe, swellings in the legs, 03/29/14) Azithromycin (Verified Allergy, Severe, 03/29/14) unknown Darvon (Verified Allergy, Severe, LIGHT HEADED, 03/29/14) Naproxen (Verified Allergy, Severe, DIZZINESS, 03/29/14) Penicillin (Verified Allergy, Severe, Rash, 03/29/14) Protonix (Verified Allergy, Severe, 03/29/14) pt states its ok to take Sulfa (Verified Allergy, Severe, Hives, 03/29/14) CONFIRM? Zetia (Unverified Allergy, Severe, RASH, 03/29/14) CRESTOR (Unverified Allergy, Unknown, legs aching, 03/29/14) Lipitor (Verified Adverse Reaction, Severe, MUSCLE ACHES, JOINT SORENESS, 03/29/14) pt states its ok to take Zocor (Verified Adverse Reaction, Severe, MUSCLE ACHES, JOINT SORENESS, ) Uncoded Allergies: LOTEMAX (Allergy, Severe, eye lids get sore, 03/25/14) STATINS (Adverse Reaction, Intermediate, MUSCLE CRAMPS LEGS AND SORENESS IN JOINTS, 09/13/10) Objective . Vital Signs Date Time Temp Pulse Resp B/P Pulse Ox O2 Delivery O2 Flow Rate FiO2 03/13/17 11:30 109 12 117/64 92 03/13/17 11:15 115 13 124/58 92 03/13/17 11:00 123 13 129/85 94 03/13/17 10:45 113 12 114/59 94 03/13/17 10:30 117 12 130/71 94 03/13/17 10:23 94 40 03/13/17 10:15 106 12 117/65 94 03/13/17 10:00 108 12 111/64 94 03/13/17 09:45 114 12 127/66 94 03/13/17 09:30 100 12 122/56 94 03/13/17 09:15 106 12 122/69 95 03/13/17 09:00 101 12 113/64 95 03/13/17 08:45 103 12 120/59 94 03/13/17 08:31 105 12 119/60 95 03/13/17 08:15 101 12 114/62 96 03/13/17 08:00 107 12 92/59 96 03/13/17 08:00 40 03/13/17 07:55 96 40 03/13/17 07:00 105 03/13/17 04:00 97.1 104 12 90/50 98 03/13/17 04:00 40 03/13/17 03:20 98 40 03/13/17 02:05 97 40 03/13/17 00:25 97 40 03/13/17 00:00 96.8 105 12 95/54 97 03/13/17 00:00 40 03/12/17 23:00 110 03/12/17 20:57 96 40 03/12/17 20:00 97.6 113 12 84/50 96 03/12/17 20:00 40 03/12/17 18:18 124 03/12/17 16:29 21 40 03/12/17 16:00 40 03/12/17 16:00 40 03/12/17 16:00 101.0 03/12/17 03/12/17 03/13/17 15:00 23:00 07:00 Intake Total 2410 ml 972 ml 727 ml Output Total 700 ml 3500 ml 850 ml Balance 1710 ml -2528 ml -123 ml Intake IV Total 1877 ml 553 ml 108 ml Tube Feeding 413 ml 419 ml 379 ml Other 120 ml 240 ml Output Urine Total 700 ml 3500 ml 850 ml # Bowel Movements 1 0 . Laboratory Tests Test 03/12/17 03/13/17 04:34 04:16 White Blood Count 12.3 TH/MM3 7.8 TH/MM3 Red Blood Count 4.14 MIL/MM3 4.03 MIL/MM3 Hemoglobin 11.6 GM/DL 11.4 GM/DL Hematocrit 35.2 % 34.4 % Mean Corpuscular Volume 84.8 FL 85.4 FL Mean Corpuscular Hemoglobin 27.9 PG 28.3 PG Mean Corpuscular Hemoglobin 32.9 % 33.2 % Concent Red Cell Distribution Width 14.8 % 14.6 % Platelet Count 337 TH/MM3 282 TH/MM3 Mean Platelet Volume 8.4 FL 8.4 FL Neutrophils (%) (Auto) 74.6 % Lymphocytes (%) (Auto) 16.2 % Monocytes (%) (Auto) 8.4 % Eosinophils (%) (Auto) 0.6 % Basophils (%) (Auto) 0.2 % Neutrophils # (Auto) 9.2 TH/MM3 Lymphocytes # (Auto) 2.0 TH/MM3 Monocytes # (Auto) 1.0 TH/MM3 Eosinophils # (Auto) 0.1 TH/MM3 Basophils # (Auto) 0.0 TH/MM3 CBC Comment DIFF FINAL Differential Comment Laboratory Tests Test 03/12/17 03/12/17 03/13/17 03/13/17 00:08 04:34 04:16 09:37 Potassium Level 4.8 MEQ/L 4.5 MEQ/L 3.6 MEQ/L Sodium Level 140 MEQ/L 141 MEQ/L Chloride Level 105 MEQ/L 104 MEQ/L Carbon Dioxide Level 27.0 MEQ/L 30.4 MEQ/L Anion Gap 8 MEQ/L 7 MEQ/L Blood Urea Nitrogen 20 MG/DL 18 MG/DL Creatinine 0.80 MG/DL 0.67 MG/DL Estimat Glomerular Filtration 69 ML/MIN 84 ML/MIN Rate Random Glucose 140 MG/DL 146 MG/DL Calcium Level 8.5 MG/DL 7.9 MG/DL Phosphorus Level 2.0 MG/DL Magnesium Level 2.5 MG/DL Troponin I 0.06 NG/ML Microbiology Date/Time Procedure Status Source Growth 03/10/17 18:45 Gram Stain - Final Complete Fluid Pleural Fluid 03/10/17 18:45 Body Fluid Culture - Final Complete Fluid Pleural Fluid NO GROWTH IN 72 HRS.--AEROBICALLY OR ... 03/10/17 18:45 Acid Fast Stain Received Fluid Pleural Fluid Pending 03/10/17 18:45 Mycobacterial Culture Received Fluid Pleural Fluid Pending 03/10/17 18:45 Fungal Smear - Final Resulted Fluid Pleural Fluid NO FUNGAL ELEMENTS SEEN. 6/5/17 18:45 Fungal Culture Resulted Fluid Pleural Fluid Pending Imaging Last Impressions Chest X-Ray 03/11/17 0000 Signed Impressions: Service Date/Time: Saturday, March 11, 2017 09:05 - CONCLUSION: ET tube tip is still close to the muriel and needs to be withdrawn 1 cm. Persistent left lower lobe consolidation. August Small MD Thoracentesis 03/10/17 0000 Signed Impressions: Service Date/Time: Friday, March 10, 2017 18:20 - CONCLUSION: Uncomplicated CT-guided thoracentesis. 500 cc of pleural fluid was removed from the right chest. Juan Mcgregor MD Chest CT 03/10/17 0000 Signed Impressions: Service Date/Time: Friday, March 10, 2017 11:51 - CONCLUSION: 1. ETT tip just in the right mainstem bronchus and should be retracted. 2. Moderate to large bilateral pleural effusions with associated compressive atelectasis at the lung bases. 3. Patchy airspace disease in the right upper lobe and anterior right middle lobe consistent with pneumonia. 4. Ancillary findings include dense coronary artery calcifications, prior cholecystectomy, and degenerative spondylosis of the thoracic spine. Jc Montana MD Physical Exam GENERAL: Patient is an obese, well-developed CF, eyes open, did not follow, not in respiratory distress. SKIN: Warm and dry. No generalized rash, no ecchymoses and no evidence of embolic lesions. HEENT: Monserrate conjunctiva. No petechia or hemorrhage. Pupils equal, round and reactive to light. No scleral icterus. No injection or drainage. Nose without bleeding or purulent nasal discharge. No sinus tenderness. She is orally intubated. NECK: Trachea midline. Supple and not tender, no meningeal signs CARDIOVASCULAR: Regular rate and rhythm. No murmurs, rubs or gallops heard RESPIRATORY: Coarse breath sounds bilaterally. Scattered rhonchi. Breath sounds equal bilaterally. ABDOMEN: Soft, obese, nondistended. No reaction to deep palpation. Bowel sounds present and normoactive. No guarding. No rebound. No organomegaly. EXTREMITIES: No clubbing, cyanosis, or edema. No joint effusion, has good ROM. No calf tenderness. Her feet are cool. NEUROLOGICAL: Sedated on the vent. No Babinski.. PSYCHIATRIC: Unable to assess LINE: No evidence of infection : Smith in place, and urine seems cloudy and with sediment. Assessment & Plan Remarks IMPRESSION Sepsis on admission due to CAP Community acquired Pneumonia, came from home Respiratory failure Hx CAD, HTN Multiple Abx allergy - has received cephalosporins in the past RECOMMENDATION Continue Vanco for CAP Continue Levaquin for atypical coverage Stop Azactam Repeat sputum G/S C/S since ET secretions have increased Follow C/S and adjust Abx Monitor progress D/W Radha Hammer MD Mar 13, 2017 14:15
[2017-03-13] MEDS ORDERED: PHARMACY ORDERED LAB ONE (15:45)
[2017-03-13] MEDS: VANCOMYCIN INJ 1,250 MG in SODIUM CHLOR 0.9% 250 ML INJ 250 ML IV SCH ×2 (16:00→18:35)
[2017-03-13 18:25] LABS: POTASSIUM 4.7 MEQ/L (3.5-5.1)
[2017-03-13] MEDS: MELATONIN 5 MG TAB PO SCH (20:47)
[2017-03-13] MEDS ORDERED: PILL SPLITTER OTHER PRN (22:15)
[2017-03-14] VITALS (31 sets, daily range): BP systolic 95–151; BP diastolic 51–81; PULSE 74–111; RESP 12–33; TEMP 97.6–100.2; O2SAT 92–98
[2017-03-14] MEDS ORDERED: DEXMEDETOMIDINE INJ 200 MCG in SODIUM CHLORIDE 0.9% INJ 50 ML IV SCH (01:15)
[2017-03-14] MEDS: INSULIN NovoLIN REGULAR SUPPLEMENTAL SCALE SQ SCH ×4 (01:54→21:23)
[2017-03-14] MEDS: RESP: ALBUTEROL 2.5 MG/IPRATROPIUM 0.5 MG NEB (SCH) INH ×4 (03:38→20:46)
[2017-03-14] MEDS: CHLORHEXIDINE GLUCONATE 2 % 1 PACK (2 CLOTHS) TOP SCH (04:00)
[2017-03-14] MEDS: HEPARIN SODIUM - SQ 10,000 UNITS/ML VIAL SQ SCH (05:11)
[2017-03-14] MEDS: OLANZapine 2.5 MG TAB PO SCH ×3 (05:11→21:13)
[2017-03-14] MEDS: METOPROLOL TARTRATE 25 MG TAB PO SCH ×3 (05:12→16:55)
[2017-03-14] MEDS: DILTIAZEM HCL 60 MG TAB PO SCH ×3 (05:12→16:55)
--- NOTE | 2017-03-14 05:48 | RADRPT ---
EXAM DATE/TIME: 03/14/2017 04:26 [facility] COMPARISON: CHEST SINGLE AP, March 11, 2017, 9:05. INDICATIONS : Evalaute for respiratory failure. MEDICAL HISTORY : None. SURGICAL HISTORY : None. ENCOUNTER: Subsequent ACUITY: 4 - 6 days PAIN SCORE: Non-responsive. LOCATION: chest FINDINGS: There is worsening patchy infiltrate of both lungs, basilar predominant. Small pleural effusion likel y at the left lung base. No pneumothorax seen. Heart size stable, within normal limits. Endotracheal tube tip is approximately 1 cm above the muriel, unchanged. Nasogastric tube courses int o the stomach. CONCLUSION: Worsening patchy consolidation of both lungs, especially the bases and a small effusion developing at the left lung base. Unchanged lines and tubes. Endotracheal tube tip is very close to the muriel. Osman Menjivar MD on March 14, 2017 at 5:44 Board Certified Radiologist. This report was verified electronically.
[2017-03-14 07:05] LABS: HEMATOCRIT 36.8 % (35.0-46.0); MEAN CELL VOLUME 86.2 FL (80.0-100.0); MEAN CORPUSCULAR HEMOGLOBIN 27.5 PG (27.0-34.0); MEAN CORPUSCULAR HGB CONC 31.9 % (32.0-36.0); PLATELET COUNT 302 TH/MM3 (150-450); RED BLOOD COUNT 4.27 MIL/MM3 (4.00-5.30); RED CELL DISTRIBUTION WIDTH 14.9 % (11.6-17.2); REVIEW FLAG FINAL; WHITE BLOOD COUNT 9.2 TH/MM3 (4.0-11.0)
[2017-03-14 07:30] LABS: BICARBONATE 29.7 MEQ/L (21.0-32.0); POTASSIUM 4.1 MEQ/L (3.5-5.1)
--- NOTE | 2017-03-14 08:29 | HHI.CCPN ---
Subjective Remarks/Hospital Course The patient is a 82-year-old female with past medical history of coronary artery disease, CABG, history of left-sided breast cancer, hyperlipidemia, gastroesophageal reflux disease, hypertension, who presented to [facility] ED via EMS for respiratory failure. Upon arrival of EMS, the patient was found hypoxic with a pulse ox of 74%. On arrival to the ED she was tachycardic, tachypneic with labored breathing and unable to lay flat. She was subsequently intubated with etomidate, succinylcholine and placed on full mechanical ventilation. Chest x-ray post intubation showed ET tube at the tip of the muriel oriented toward the right mainstem bronchus, patchy airspace consolidation in the right upper lobe and in the lower lobes bilaterally. Her laboratory data is significant for leukocytosis with a WBC of 14.9. Lactic acid level measured at 1.9. In the ER she was given bronchodilator treatment, Solu-Medrol 125 mg IV push, Aztreonam, Tobramycin, Lasix and scheduled to receive one dose of vancomycin. The patient also was given Lasix 40 mg IV push x1 and Flagyl. CT scan of the chest was obtained which showed ET tube tip just in the right mainstem bronchus, moderate to large bilateral pleural effusions with associated compressive atelectasis in the lung bases and patchy airspace disease in the right upper lobe and right middle lobe. When seen the patient is sedated with Diprivan and on full mechanical ventilation. ABG post- intubation showed a pH of 7.49, CO2 35, pAO2 310, bicarb of 27, saturation 98% on assist control ventilation with a rate of 14, tidal volume 550, PEEP of 5, 100% FIO2. 03/11 Patient remains sedated with Diprivan and intubated. Patient went into Afib with RVR last night given Lopressor and placed on Amio drip. Afebrile. s/p CT guided right sided paracentsis with removal 500ml straw colored fluid. 03/12: sedation improved, but on sedation vacation and SBT, patient became significantly agitated, and then hypoxic. also back into afib rvr requiring amiodarone. 03/13: still in atrial fibrillation. hypotensive this morning. still failing SBTs for agitation. 03/14: rate controlled afib. hypotension resolved. passed 90 minute SBT overnight. net -1L/24h. clinically improving. Objective Vital Signs Date Time Temp Pulse Resp B/P Pulse Ox O2 Delivery O2 Flow Rate FiO2 03/14/17 04:00 97.6 98 12 120/59 94 03/14/17 04:00 40 03/10/17 11:41 Ventilator Intake and Output 03/13/17 03/13/17 03/14/17 08:00 16:00 00:00 Intake Total 727 ml 1790 ml 797 ml Output Total 850 ml 2200 ml 1000 ml Balance -123 ml -410 ml -203 ml Result Diagram: 03/14/17 0459 03/14/17 0459 Imaging Last Impressions Chest X-Ray 03/10/17 1930 Signed Impressions: Service Date/Time: Friday, March 10, 2017 19:27 - CONCLUSION: 1. Interim thoracentesis on the right without evidence of pneumothorax or other acute complication. There is upper lobe predominant consolidation of the right lung again noted. 2. Basilar consolidation and small to moderate pleural effusion on the left not significantly changed. 3. Persistent right mainstem bronchus intubation. Osman Menjivar MD Thoracentesis 03/10/17 0000 Signed Impressions: Service Date/Time: Friday, March 10, 2017 18:20 - CONCLUSION: Uncomplicated CT-guided thoracentesis. 500 cc of pleural fluid was removed from the right chest. Juan Mcgregor MD Chest CT 03/10/17 0000 Signed Impressions: Service Date/Time: Friday, March 10, 2017 11:51 - CONCLUSION: 1. ETT tip just in the right mainstem bronchus and should be retracted. 2. Moderate to large bilateral pleural effusions with associated compressive atelectasis at the lung bases. 3. Patchy airspace disease in the right upper lobe and anterior right middle lobe consistent with pneumonia. 4. Ancillary findings include dense coronary artery calcifications, prior cholecystectomy, and degenerative spondylosis of the thoracic spine. Jc Montana MD Objective Remarks GENERAL: Patient is 82 yo intubated and sedated SKIN: Warm and dry. HEAD: Normocephalic. EYES: No scleral icterus. No injection or drainage. NECK: trachea midline. +JVD. CARDIOVASCULAR: normal rate, irregularly irregular rhythm. afib by tele. RESPIRATORY: equal chest rise. No accessory muscle use. GASTROINTESTINAL: Abdomen soft, non-tender, nondistended. MUSCULOSKELETAL: No cyanosis, or edema. Neuro: RASS -2. fc x 4. A/P Assessment and Plan Assessment: 82yF with multilobar pneumonia complicated by acute hypoxic respiratory failure, atrial fibrillation, pleural effusion. remains critically ill. off pathway. will work towards attempted extubation, although with her age and critical illness, she may not remain extubated due to deconditioning. 1. Acute hypoxic respiratory failure 2. Multilobar pneumonia. 3. Bilateral pleural effusions with compressive atelectasis. s/p right thoracentesis with removal 500ml. 4. Leukocytosis. 5. Hyperglycemia. 6. Elevated AST. 7. History of coronary artery disease and CABG. 8. History of hypertension. 9. Hyperlipidemia. 10. GERD. 11. History of breast cancer. 12 Afib RVR- resolving. 13 Agitated Delirium- resolving. 14 acute intravascular volume overload Plan Neuro: On fentanyl/propofol infusion for sedation and daily sedation vacation . zyprexa 2.5mg po q8h for agitated delirium. melatonin 5mg po qhs for improved sleep-wake cycle. Pulm: Continue with vent support and maintain sats >92%. Bronchodilators, ICU vent bundle. Start spontaneous breathing trials s/p CT-guided right thoracentesis with removal 500ml straw colored fluid. Follow up on pleural fuid analysis/cx/cytology SBT today. will attempt extubation. CV: lopressor 37.5mg po q6hr po amio 200mg bid. diltiazem 90 po q6h. : Monitor renal function, Is and Os and electrolyte replacement per protocol. Lasix 40mg iv x BID for volume overload. diamox 500mg iv x 1 for alkalosis. GI: on Pepcid 10 mg IV q. 12 , Glucerna 1.5 with goal rate of 45 mL an hour. ID: Continue with abx (vancomycin, aztreonam, Levaquin). would plan on full 7 day course if no culture data (anticipated stop date 03/16) Nasal washing for influenza A and B antigen are negative. Follow up on sputum and blood cultures. Strep pneumonia and Legionella urinary antigen negative. ID service is consulted Endo: SSI with Accu-Chek q. 6-hour for glycemic control. Heme: Monitor CBC. GI prophylaxis with Pepcid 10 mg IV q. 12. DVT prophylaxis with SCDs and heparin subcu. will start therapeutic lovenox for afib (CHADSVaSC > 2). Mata Branch MD Mar 14, 2017 08:28
[2017-03-14] MEDS: FUROSEMIDE 40 MG/4 ML VIAL IV PUSH SCH ×2 (08:39→16:55)
[2017-03-14] MEDS: AMIODARONE 200 MG TAB PO SCH ×2 (08:39→21:13)
[2017-03-14] MEDS: VANCOMYCIN INJ 1,250 MG in SODIUM CHLOR 0.9% 250 ML INJ 250 ML IV SCH (08:40)
[2017-03-14] MEDS: ENOXAPARIN SODIUM 100 MG/ML SYRINGE SQ SCH (09:13)
[2017-03-14] MEDS: LEVOFLOXACIN 750 MG PREMIX INJ 150 ML IV SCH (09:13)
[2017-03-14] MEDS: BISACODYL 10 MG SUPP RECTAL SCH (10:18)
[2017-03-14] MEDS: LACTULOSE SYRUP 20 GM/30 ML CUP PO SCH ×2 (10:18→21:13)
[2017-03-14] MEDS: POLYETHYLENE GLYCOL 17 GM PKG PO SCH ×2 (10:18→21:13)
[2017-03-14] MEDS: DOCUSATE SODIUM 50 MG/SENNA 8.6 MG TAB PO SCH ×2 (10:18→21:13)
--- NOTE | 2017-03-14 11:29 | HHI.IDPN ---
Subjective Subjective Remarks 82 year old female, lives at home with , admitted for SOB, cough. Required intubation Notes reviewed D/W RN Has been on CPAP x 2 hours RR 24 Awake, seems to be focusing, intermittently follows commands No BM - to get a rectal suppository Temps low grade overnight More ET secretions being suctioned - looks white Sputum no growth WBC down to normal CXR with increased infiltrates Antibiotics Levaquin Vancomycin Lines PIV Past Medical History Coronary artery disease. Hypertension. Gastroesophageal reflux disease. Arthritis. Severe, has gotten shots on her R hip, being evaluated for her L hip History of CVA. Hyperlipidemia. History of left breast cancer. Past Surgical History Left breast lumpectomy. Back surgery. Cholecystectomy. CABG x3. Bilateral lens implants. Tonsillectomy. Cataract surgery. Allergies: Coded Allergies: Amlodipine (Unverified Allergy, Severe, swellings in the legs, 03/29/14) Azithromycin (Verified Allergy, Severe, 03/29/14) unknown Darvon (Verified Allergy, Severe, LIGHT HEADED, 03/29/14) Naproxen (Verified Allergy, Severe, DIZZINESS, 03/29/14) Penicillin (Verified Allergy, Severe, Rash, 03/29/14) Protonix (Verified Allergy, Severe, 03/29/14) pt states its ok to take Sulfa (Verified Allergy, Severe, Hives, 03/29/14) CONFIRM? Zetia (Unverified Allergy, Severe, RASH, 03/29/14) CRESTOR (Unverified Allergy, Unknown, legs aching, 03/29/14) Lipitor (Verified Adverse Reaction, Severe, MUSCLE ACHES, JOINT SORENESS, 03/29/14) pt states its ok to take Zocor (Verified Adverse Reaction, Severe, MUSCLE ACHES, JOINT SORENESS, ) Uncoded Allergies: LOTEMAX (Allergy, Severe, eye lids get sore, 03/25/14) STATINS (Adverse Reaction, Intermediate, MUSCLE CRAMPS LEGS AND SORENESS IN JOINTS, 09/13/10) Objective . Vital Signs Date Time Temp Pulse Resp B/P Pulse Ox O2 Delivery O2 Flow Rate FiO2 03/14/17 09:44 40 03/14/17 09:44 94 40 03/14/17 08:31 94 40 03/14/17 04:00 97.6 98 12 120/59 94 03/14/17 04:00 40 03/14/17 03:38 94 40 03/14/17 01:37 93 40 03/14/17 00:00 40 03/14/17 00:00 97.8 105 33 151/81 92 03/13/17 23:00 103 03/13/17 22:25 92 40 03/13/17 21:00 40 03/13/17 21:00 40 03/13/17 20:36 95 40 03/13/17 20:00 99.3 87 12 108/61 94 03/13/17 20:00 40 03/13/17 16:45 93 40 03/13/17 16:00 100.4 03/13/17 16:00 40 03/13/17 14:41 40 03/13/17 12:30 91 12 119/60 94 03/13/17 12:30 91 12 119/60 94 03/13/17 12:30 91 12 119/60 94 03/13/17 12:15 95 12 111/64 93 03/13/17 12:15 95 12 111/64 93 03/13/17 12:15 95 12 111/64 93 03/13/17 12:00 40 03/13/17 12:00 99 12 97/63 93 03/13/17 12:00 99 12 97/63 93 03/13/17 12:00 97.6 03/13/17 12:00 99 12 97/63 93 03/13/17 11:45 103 12 108/64 92 03/13/17 11:45 103 12 108/64 92 03/13/17 11:45 103 12 108/64 92 03/13/17 11:30 109 12 117/64 92 03/13/17 11:30 109 12 117/64 92 03/13/17 11:30 109 12 117/64 92 03/13/17 11:30 109 12 117/64 92 03/13/17 03/13/17 03/14/17 14:59 22:59 06:59 Intake Total 1790 ml 797 ml 285 ml Output Total 2200 ml 1000 ml 850 ml Balance -410 ml -203 ml -565 ml Intake IV Total 1267 ml 401 ml 65 ml Tube Feeding 403 ml 396 ml 100 ml Other 120 ml 120 ml Output Urine Total 2200 ml 1000 ml 850 ml Stool Total 0 ml 0 ml . Laboratory Tests Test 03/13/17 03/14/17 04:16 04:59 White Blood Count 7.8 TH/MM3 9.2 TH/MM3 Red Blood Count 4.03 MIL/MM3 4.27 MIL/MM3 Hemoglobin 11.4 GM/DL 11.7 GM/DL Hematocrit 34.4 % 36.8 % Mean Corpuscular Volume 85.4 FL 86.2 FL Mean Corpuscular Hemoglobin 28.3 PG 27.5 PG Mean Corpuscular Hemoglobin 33.2 % 31.9 % Concent Red Cell Distribution Width 14.6 % 14.9 % Platelet Count 282 TH/MM3 302 TH/MM3 Mean Platelet Volume 8.4 FL 8.4 FL Laboratory Tests Test 03/13/17 03/13/17 03/13/17 03/14/17 04:16 09:37 17:55 04:59 Sodium Level 141 MEQ/L 140 MEQ/L Potassium Level 3.6 MEQ/L 4.7 MEQ/L 4.1 MEQ/L Chloride Level 104 MEQ/L 102 MEQ/L Carbon Dioxide Level 30.4 MEQ/L 29.7 MEQ/L Anion Gap 7 MEQ/L 8 MEQ/L Blood Urea Nitrogen 18 MG/DL 19 MG/DL Creatinine 0.67 MG/DL 0.66 MG/DL Estimat Glomerular Filtration 84 ML/MIN 86 ML/MIN Rate Random Glucose 146 MG/DL 131 MG/DL Calcium Level 7.9 MG/DL 8.2 MG/DL Troponin I 0.06 NG/ML Magnesium Level 3.0 MG/DL Microbiology Date/Time Procedure Status Source Growth 03/13/17 14:40 Gram Stain - Final Resulted Sputum Expectorated Sputum 03/13/17 14:40 Sputum Culture - Preliminary Resulted Sputum Expectorated Sputum NO GROWTH IN 24 HOURS. Imaging Chest X-Ray 03/14/17 0600 Signed Impressions: Service Date/Time: Tuesday, March 14, 2017 04:26 - CONCLUSION: Worsening patchy consolidation of both lungs, especially the bases and a small effusion developing at the left lung base. Unchanged lines and tubes. Endotracheal tube tip is very close to the muriel. Osman Menjivar MD Chest X-Ray 03/11/17 0000 Signed Impressions: Service Date/Time: Saturday, March 11, 2017 09:05 - CONCLUSION: ET tube tip is still close to the muriel and needs to be withdrawn 1 cm. Persistent left lower lobe consolidation. August Small MD Thoracentesis 03/10/17 Signed Impressions: Service Date/Time: Friday, March 10, 2017 18:20 - CONCLUSION: Uncomplicated CT-guided thoracentesis. 500 cc of pleural fluid was removed from the right chest. Juan Mcgregor MD Chest CT 03/10/17 Signed Impressions: Service Date/Time: Friday, March 10, 2017 11:51 - CONCLUSION: 1. ETT tip just in the right mainstem bronchus and should be retracted. 2. Moderate to large bilateral pleural effusions with associated compressive atelectasis at the lung bases. 3. Patchy airspace disease in the right upper lobe and anterior right middle lobe consistent with pneumonia. 4. Ancillary findings include dense coronary artery calcifications, prior cholecystectomy, and degenerative spondylosis of the thoracic spine. Jc Montana MD Physical Exam GENERAL: Patient is an obese, well-developed CF, eyes open, follows commands intermittently, On CPAP, NAD. SKIN: Warm and dry. No generalized rash, no ecchymoses and no evidence of embolic lesions. HEENT: Effort conjunctiva. No petechia or hemorrhage. Pupils equal, round and reactive to light. No scleral icterus. Nose without bleeding or purulent nasal discharge. No sinus tenderness. She is orally intubated. NECK: Trachea midline. Supple and not tender, no meningeal signs CARDIOVASCULAR: Regular rate and rhythm. No murmurs, rubs or gallops heard RESPIRATORY: Coarse breath sounds bilaterally. Scattered rhonchi. Breath sounds equal bilaterally. ABDOMEN: Soft, obese, nondistended. No reaction to deep palpation. Bowel sounds present and normoactive. No guarding. No rebound. No organomegaly. EXTREMITIES: No clubbing, cyanosis, or edema. No joint effusion, has good ROM. No calf tenderness. Her feet are cool. NEUROLOGICAL: Awake, focusing, occ follows PSYCHIATRIC: Unable to assess LINE: No evidence of infection : Smith in place, and urine with sediment. Assessment & Plan Remarks IMPRESSION Sepsis on admission due to CAP Intermittent low grade temps Community acquired Pneumonia, came from home Respiratory failure Hx CAD, HTN Multiple Abx allergy - has received cephalosporins in the past RECOMMENDATION Stop Vanco - no MRSA identified Continue Levaquin - should cover CAP as well - if repeat sputum C/S negative, give Levaquin until 03/18 Repeat UA and C/S Follow temps Monitor progress Weaning per CCM D/W RN Dr Pabon available this weekend if with any ID issue or question Radha Hawthorne MD Mar 14, 2017 11:29
--- NOTE | 2017-03-14 11:32 | PD.CONS ---
HPI Service cardiology Consult Requested By Reason for Consult new onset afib Primary Care Physician Unknown History of Present Illness 82 yo WF with history of CAD, cardiac cath 2016 medically managed, CABG x 3, HLD , breast cancer admitted several days ago for acute respiratory failure. She was found to have bilateral PNA, and ultimately intubated and placed on ventilator. She also underwent thoracentesis for pleural effusion. She developed new onset afib and we have been consulted; patient underwent cardiac cath by Dr. Ross Posey last year. She is maintained on metoprolol, diltiazem and amiodarone with improved heart rate. is at her bedside. ( Stacy Ogden) Review of Systems patient is sedated, intubated and mechanically ventilated (Stacy Ogden) Past Family Social History Allergies: Coded Allergies: Amlodipine (Unverified Allergy, Severe, swellings in the legs, 03/29/14) Azithromycin (Verified Allergy, Severe, 03/29/14) unknown Darvon (Verified Allergy, Severe, LIGHT HEADED, 03/29/14) Naproxen (Verified Allergy, Severe, DIZZINESS, 03/29/14) Penicillin (Verified Allergy, Severe, Rash, 03/29/14) Protonix (Verified Allergy, Severe, 03/29/14) pt states its ok to take Sulfa (Verified Allergy, Severe, Hives, 03/29/14) CONFIRM? Zetia (Unverified Allergy, Severe, RASH, 03/29/14) CRESTOR (Unverified Allergy, Unknown, legs aching, 03/29/14) Lipitor (Verified Adverse Reaction, Severe, MUSCLE ACHES, JOINT SORENESS, 03/29/14) pt states its ok to take Zocor (Verified Adverse Reaction, Severe, MUSCLE ACHES, JOINT SORENESS, ) Uncoded Allergies: LOTEMAX (Allergy, Severe, eye lids get sore, 03/25/14) STATINS (Adverse Reaction, Intermediate, MUSCLE CRAMPS LEGS AND SORENESS IN JOINTS, 09/13/10) Past Medical History CAD, CABG x 3, L breast cancer, HLD Past Surgical History lumpectomy, back surgery, CABG x 3, cholecystectomy Reported Medications Reported Meds & Active Scripts Active Reported [domperidone] 10 Mg PO TID Lipitor (Atorvastatin Calcium) 10 Mg Tab Unknown Dose PO HS Claritin (Loratadine) 10 Mg Cap 10 Mg PO DAILY Fish Oil 1200 mg ([place]-3 Fatty Acids) 1 Cap Cap 1 Tab PO DAILY Pramipexole (Pramipexole Dihydrochloride) 0.125 Mg Tab 0.125 Mg PO HS Flovent Hfa 12 GM Inh (Fluticasone Propionate) 220 Mcg/Act Inh 1 Puff INH BID Use daily at the same time. [ketoconazole 1%] 1 Applic NA BID PRN Nitroglycerin SL (Nitroglycerin) 0.4 Mg Subl 0 SL DIRECTED PRN ONE TABLET UNDER THE TONGUE NEEDED FOR CHEST PAIN, MAY REPEAT EVERY FIVE MINUTES FOR A TOTAL OF 3 DOSES OR CALL 911 IF NO RELIEF Ventolin Hfa 18 GM Inh (Albuterol Sulfate) 90 Mcg/Act Aer 2 Puff INH Q6H PRN Hydroxyzine HCl 25 Mg Tab 25 Mg PO TID Meloxicam 15 Mg Tab 15 Mg PO DAILY Amlodipine (Amlodipine Besylate) 2.5 Mg Tab 2.5 Mg PO DAILY [place] (Hydrocodone-Acetaminophen) 5-325 mg Tab 1 Tab PO Q8HR PRN Protonix (Pantoprazole Sodium) 40 Mg Tab 40 Mg PO BID Duloxetine DR (Duloxetine HCl) 30 Mg Capdr 30 Mg PO DAILY Isosorbide Mononitrate 20 Mg Tab 30 Mg PO BID Take 2 doses 7 hours apart. Metoprolol Tartrate 50 Mg Tab 50 Mg PO BID Baclofen 10 Mg Tab 5 Mg PO HS Active Ordered Medications Current Medications Medications (Trade) Dose Ordered Sig/Meet Route Start Time Stop Time Status Last Admin (NS Flush) 2 ml UNSCH PRN IVF 03/10/17 07:15 03/13/17 07:42 Miscellaneous Information 1 Q361D XX 03/10/17 13:00 03/10/17 13:00 (Chlorhexidine 2% Cloth) 3 pack Taper DAILY@04 TOP 03/11/17 04:00 03/07/18 03:59 03/14/17 04:00 Chlorhexidine Gluconate 3 pack 3 pack UNSCH PRN TOP 03/10/17 13:00 (Vancomycin Consult Pharmacy) 0 ml @ 0 mls/hr UNSCH OTHER 03/10/17 13:00 (Pepcid Inj) 10 mg Q12H IV PUSH 03/10/17 13:00 03/13/17 23:54 (D50w (Vial) Inj) 50 ml UNSCH PRN IV 03/10/17 13:00 (Glucagon Inj) 1 mg UNSCH PRN OTHER 03/10/17 13:00 (NovoLIN R SUPPLEMENTAL SCALE) 1 Q6H SQ 03/10/17 14:00 03/12/17 01:19 Metoprolol Tartrate 5 mg 5 mg Q5M PRN IV PUSH 03/10/17 22:00 03/11/17 00:11 Potassium Chloride 100 ml @ 50 mls/hr Q2H PRN IV 03/11/17 08:45 (KCl 20 Meq Premix Inj) 100 ml @ 50 mls/hr Q2H PRN IV 03/11/17 08:45 03/11/17 17:21 Potassium Bicarb/ Potassium Chloride 50 meq 50 meq UNSCH PRN PO 03/11/17 08:45 Potassium Chloride 100 ml @ 25 mls/hr UNSCH PRN IV 03/11/17 08:45 Potassium Chloride 100 ml @ 50 mls/hr Q2H PRN IV 03/11/17 08:45 (Magnesium Sulfate Inj/NS Inj) 100 ml @ 50 mls/hr UNSCH PRN IV 03/11/17 08:45 Magnesium Oxide 800 mg 800 mg UNSCH PRN PO 03/11/17 08:45 (Magnesium Sulfate Inj/NS Inj) 100 ml @ 50 mls/hr UNSCH PRN IV 03/11/17 08:45 Potassium Phosphate 2000 mg 2,000 mg Q4H PRN PO 03/11/17 08:45 (Sodium Phosphate Inj/NS 250 ml Inj) 250 ml @ 42 mls/hr UNSCH PRN IV 03/11/17 08:45 Potassium Phosphate 2000 mg 2,000 mg UNSCH PRN PO/TUBE 03/11/17 08:45 Potassium Phosphate 30 mmol/ Sodium Chloride 260 ml @ 42 mls/hr UNSCH PRN IV 03/11/17 08:45 Vancomycin HCl 1250 mg/Sodium Chloride 262.5 ml @ 250 mls/hr Q18H IV 03/11/17 10:00 03/14/17 08:40 (Levaquin 750 Mg Premix Inj) 150 ml @ 100 mls/hr Q24H IV 03/11/17 11:00 03/14/17 09:13 (Cordarone) 200 mg Q12HR PO 03/12/17 14:00 03/14/17 08:39 (Melatonin) 5 mg HS PO 03/12/17 21:00 03/13/17 20:47 (ZyPREXA) 2.5 mg Q8HR PO 03/12/17 14:00 03/14/17 05:11 (Lasix Inj) 40 mg BID@09,18 IV PUSH 03/13/17 09:00 03/14/17 08:39 (Lopressor) 37.5 mg Q6HR PO 03/13/17 12:00 03/14/17 05:12 (Cardizem) 90 mg Q6HR PO 03/13/17 12:00 03/14/17 05:12 (Pill Splitter) 1 ea UNSCH PRN OTHER 03/13/17 22:15 Miscellaneous Information SPECIFIC LAB TO BE DRAWN:VANCO TROUGH DATE TO BE DR... ONCE ONCE .XX 03/15/17 03:45 03/15/17 03:46 (Lovenox Inj) 100 mg Q24H SQ 03/14/17 09:00 03/14/17 09:13 (Dulcolax Supp) 10 mg DAILY RECTAL 03/14/17 10:00 03/14/17 10:18 (Miralax) 17 gm BID PO 03/14/17 10:00 03/14/17 10:18 (Lactulose Liq) 30 ml BID PO 03/14/17 10:00 03/14/17 10:18 (Bonnie-Colace) 1 tab BID PO 03/14/17 10:00 03/14/17 10:18 Family History non-contributory Social History no etoh, no tobacco, no illicit drug use (Stacy Ogden) Physical Exam Vital Signs Vital Signs Date Time Temp Pulse Resp B/P Pulse Ox O2 Delivery O2 Flow Rate FiO2 03/14/17 09:44 40 03/14/17 09:44 94 40 03/14/17 08:31 94 40 03/14/17 04:00 97.6 98 12 120/59 94 03/14/17 04:00 40 03/14/17 03:38 94 40 03/14/17 01:37 93 40 03/14/17 00:00 40 03/14/17 00:00 97.8 105 33 151/81 92 03/13/17 23:00 103 03/13/17 22:25 92 40 03/13/17 21:00 40 03/13/17 21:00 40 03/13/17 20:36 95 40 03/13/17 20:00 99.3 87 12 108/61 94 03/13/17 20:00 40 03/13/17 16:45 93 40 03/13/17 16:00 100.4 03/13/17 16:00 40 03/13/17 14:41 40 03/13/17 12:30 91 12 119/60 94 03/13/17 12:30 91 12 119/60 94 03/13/17 12:30 91 12 119/60 94 03/13/17 12:15 95 12 111/64 93 03/13/17 12:15 95 12 111/64 93 03/13/17 12:15 95 12 111/64 93 03/13/17 12:00 40 03/13/17 12:00 99 12 97/63 93 03/13/17 12:00 99 12 97/63 93 03/13/17 12:00 97.6 03/13/17 12:00 99 12 97/63 93 03/13/17 11:45 103 12 108/64 92 03/13/17 11:45 103 12 108/64 92 03/13/17 11:45 103 12 108/64 92 03/13/17 11:30 109 12 117/64 92 03/13/17 11:30 109 12 117/64 92 03/13/17 11:30 109 12 117/64 92 03/13/17 11:30 109 12 117/64 92 03/13/17 11:15 115 13 124/58 92 03/13/17 11:15 115 13 124/58 92 03/13/17 11:15 115 13 124/58 92 03/13/17 11:15 115 13 124/58 92 Physical Exam GENERAL: sedated, intubated, mechanically ventilated HEAD: Atraumatic. Normocephalic. EYES: Pupils equal and round. No scleral icterus. ENT: No nasal bleeding or discharge. Mucous membranes pink and moist. NECK: Trachea midline. No JVD. CARDIOVASCULAR: Irregularly irregular rate. No murmur RESPIRATORY: No accessory muscle use. Clear to auscultation. Breath sounds equal bilaterally. MUSCULOSKELETAL:No obvious deformities. NEUROLOGICAL: sedated. Laboratory Laboratory Tests Test 03/13/17 03/14/17 17:55 04:59 Potassium Level 4.7 4.1 Magnesium Level 3.0 Vancomycin Level Trough 10.7 White Blood Count 9.2 Red Blood Count 4.27 Hemoglobin 11.7 Hematocrit 36.8 Mean Corpuscular Volume 86.2 Mean Corpuscular Hemoglobin 27.5 Mean Corpuscular Hemoglobin 31.9 Concent Red Cell Distribution Width 14.9 Platelet Count 302 Mean Platelet Volume 8.4 Sodium Level 140 Chloride Level 102 Carbon Dioxide Level 29.7 Anion Gap 8 Blood Urea Nitrogen 19 Creatinine 0.66 Estimat Glomerular Filtration 86 Rate Random Glucose 131 Calcium Level 8.2 Date/Time Procedure Status Source Growth 03/13/17 14:40 Gram Stain - Final Resulted Sputum Expectorated Sputum 03/13/17 14:40 Sputum Culture - Preliminary Resulted Sputum Expectorated Sputum NO GROWTH IN 24 HOURS. 03/10/17 18:45 Fungal Smear - Final Resulted Fluid Pleural Fluid NO FUNGAL ELEMENTS SEEN. 03/10/17 18:45 Fungal Culture Resulted Fluid Pleural Fluid Pending 03/10/17 18:45 Acid Fast Stain Received Fluid Pleural Fluid Pending 03/10/17 18:45 Mycobacterial Culture Received Fluid Pleural Fluid Pending 03/10/17 14:05 Cancelled Sputum Oral Tracheal Aspirate 03/10/17 07:25 Influenza Types A,B Antigen (CARLITO) - Final Complete Nasal Washing NEGATIVE FOR FLU A AND B ANTIGEN.... 03/10/17 07:25 Aerobic Blood Culture - Preliminary Resulted Blood Peripheral NO GROWTH IN 4 DAYS 03/10/17 07:25 Anaerobic Blood Culture - Preliminary Resulted Blood Peripheral NO GROWTH IN 4 DAYS 03/10/17 07:20 Legionella Antigen - Final Complete Urine Catheterized Urine PRESUMPTIVE NEGATIVE FOR LEGIONELLA P... 03/10/17 07:20 Streptococcus pneumoniae Antigen (M - Final Complete Urine Catheterized Urine PRESUMPTIVE NEGATIVE FOR STREPTOCOCCU... (Stacy Ogden) Result Diagram: 03/14/17 0459 03/14/17 0459 Imaging Last Impressions Chest X-Ray 03/14/17 0600 Signed Impressions: Service Date/Time: Tuesday, March 14, 2017 04:26 - CONCLUSION: Worsening patchy consolidation of both lungs, especially the bases and a small effusion developing at the left lung base. Unchanged lines and tubes. Endotracheal tube tip is very close to the muriel. Osman Menjivar MD Thoracentesis 03/10/17 Signed Impressions: Service Date/Time: Friday, March 10, 2017 18:20 - CONCLUSION: Uncomplicated CT-guided thoracentesis. 500 cc of pleural fluid was removed from the right chest. Juan Mcgregor MD Chest CT 03/10/17 Signed Impressions: Service Date/Time: Friday, March 10, 2017 11:51 - CONCLUSION: 1. ETT tip just in the right mainstem bronchus and should be retracted. 2. Moderate to large bilateral pleural effusions with associated compressive atelectasis at the lung bases. 3. Patchy airspace disease in the right upper lobe and anterior right middle lobe consistent with pneumonia. 4. Ancillary findings include dense coronary artery calcifications, prior cholecystectomy, and degenerative spondylosis of the thoracic spine. Jc Montana MD (Stacy Ogden) Assessment and Plan Problem List: (1) Afib Assessment and Plan 82 yo WF admitted for acute respiratory failure and bilateral PNA several days ago. Now sedated, intubated and mechanically ventilated. She is critically ill and developed new onset afib. afib- rate controlled. SBP on the low end. Echo reveals EF 40-45%, mild- moderately dilated left atrium, mod MR. Continue bb, cardizem and amio. CAD- hx of CABG x 3, cardiac cath 2016 medical management continue current medical regimen and will continue to follow. (Stacy Ogden) Assessment and Plan agree with above. rate control strategy likely due to increased adrenergic tone (Chet Morgan MD) Stacy Ogden Mar 14, 2017 11:32 Chet Morgan MD Mar 14, 2017 11:48
[2017-03-14] MEDS: FAMOTIDINE 20 MG/2 ML VIAL IV PUSH SCH (13:21)
[2017-03-14] MEDS ORDERED: OLANZapine 2.5 MG TAB PO PRN (21:00)
[2017-03-14] MEDS: MELATONIN 5 MG TAB PO SCH (21:13)
[2017-03-15] VITALS (16 sets, daily range): BP systolic 105–143; BP diastolic 55–75; PULSE 67–87; RESP 20–33; TEMP 97.8–99.1; O2SAT 89–98
[2017-03-15] MEDS: DILTIAZEM HCL 60 MG TAB PO SCH ×5 (01:24→23:55)
[2017-03-15] MEDS: METOPROLOL TARTRATE 25 MG TAB PO SCH ×5 (01:26→23:55)
[2017-03-15] MEDS: FAMOTIDINE 20 MG/2 ML VIAL IV PUSH SCH (01:28)
[2017-03-15] MEDS: INSULIN NovoLIN REGULAR SUPPLEMENTAL SCALE SQ SCH ×4 (01:33→20:36)
[2017-03-15] MEDS: RESP: ALBUTEROL 2.5 MG/IPRATROPIUM 0.5 MG NEB (SCH) INH ×4 (03:14→20:18)
[2017-03-15] MEDS ORDERED: PHARMACY ORDERED LAB ONE (03:45)
[2017-03-15] MEDS: VANCOMYCIN INJ 1,250 MG in SODIUM CHLOR 0.9% 250 ML INJ 250 ML IV SCH (04:02)
[2017-03-15 05:33] LABS: HEMATOCRIT 37.8 % (35.0-46.0); MEAN CELL VOLUME 85.7 FL (80.0-100.0); MEAN CORPUSCULAR HEMOGLOBIN 27.4 PG (27.0-34.0); PLATELET COUNT 348 TH/MM3 (150-450); RED BLOOD COUNT 4.41 MIL/MM3 (4.00-5.30); RED CELL DISTRIBUTION WIDTH 14.9 % (11.6-17.2); REVIEW FLAG FINAL; WHITE BLOOD COUNT 11.4 TH/MM3 (4.0-11.0)
[2017-03-15 06:03] LABS: POTASSIUM 3.1 MEQ/L (3.5-5.1)
[2017-03-15] MEDS: OLANZapine 2.5 MG TAB PO SCH (06:16)
[2017-03-15] MEDS: POTASSIUM CHLOR 20 MEQ PREMIX 100 ML IV PRN ×5 (06:21→23:56)
[2017-03-15] MEDS: BISACODYL 10 MG SUPP RECTAL SCH (08:23)
[2017-03-15] MEDS: AMIODARONE 200 MG TAB PO SCH ×2 (08:27→20:37)
[2017-03-15] MEDS: POLYETHYLENE GLYCOL 17 GM PKG PO SCH ×2 (08:27→20:37)
[2017-03-15] MEDS: LACTULOSE SYRUP 20 GM/30 ML CUP PO SCH ×2 (08:27→20:37)
[2017-03-15] MEDS: DOCUSATE SODIUM 50 MG/SENNA 8.6 MG TAB PO SCH ×2 (08:27→20:37)
[2017-03-15] MEDS: ENOXAPARIN SODIUM 100 MG/ML SYRINGE SQ SCH (08:28)
[2017-03-15] MEDS: FUROSEMIDE 40 MG/4 ML VIAL IV PUSH SCH ×2 (09:05→17:35)
--- NOTE | 2017-03-15 09:54 | HHI.CCPN ---
Subjective Remarks/Hospital Course The patient is a 82-year-old female with past medical history of coronary artery disease, CABG, history of left-sided breast cancer, hyperlipidemia, gastroesophageal reflux disease, hypertension, who presented to [facility] ED via EMS for respiratory failure. Upon arrival of EMS, the patient was found hypoxic with a pulse ox of 74%. On arrival to the ED she was tachycardic, tachypneic with labored breathing and unable to lay flat. She was subsequently intubated with etomidate, succinylcholine and placed on full mechanical ventilation. Chest x-ray post intubation showed ET tube at the tip of the muriel oriented toward the right mainstem bronchus, patchy airspace consolidation in the right upper lobe and in the lower lobes bilaterally. Her laboratory data is significant for leukocytosis with a WBC of 14.9. Lactic acid level measured at 1.9. In the ER she was given bronchodilator treatment, Solu-Medrol 125 mg IV push, Aztreonam, Tobramycin, Lasix and scheduled to receive one dose of vancomycin. The patient also was given Lasix 40 mg IV push x1 and Flagyl. CT scan of the chest was obtained which showed ET tube tip just in the right mainstem bronchus, moderate to large bilateral pleural effusions with associated compressive atelectasis in the lung bases and patchy airspace disease in the right upper lobe and right middle lobe. When seen the patient is sedated with Diprivan and on full mechanical ventilation. ABG post- intubation showed a pH of 7.49, CO2 35, pAO2 310, bicarb of 27, saturation 98% on assist control ventilation with a rate of 14, tidal volume 550, PEEP of 5, 100% FIO2. 03/11 Patient remains sedated with Diprivan and intubated. Patient went into Afib with RVR last night given Lopressor and placed on Amio drip. Afebrile. s/p CT guided right sided paracentsis with removal 500ml straw colored fluid. 03/12: sedation improved, but on sedation vacation and SBT, patient became significantly agitated, and then hypoxic. also back into afib rvr requiring amiodarone. 03/13: still in atrial fibrillation. hypotensive this morning. still failing SBTs for agitation. 03/14: rate controlled afib. hypotension resolved. passed 90 minute SBT overnight. net -1L/24h. clinically improving. 03/15: extubated and doing well this morning. continues to improve. net -2.7L/ 24h. passed swallow study. Objective Vital Signs Date Time Temp Pulse Resp B/P Pulse Ox O2 Delivery O2 Flow Rate FiO2 03/15/17 08:02 96 Nasal Cannula 4.00 03/15/17 04:00 97.8 86 23 122/58 03/14/17 11:28 40 Intake and Output 03/14/17 03/14/17 03/15/17 08:00 16:00 00:00 Intake Total 285 ml 320 ml 60 ml Output Total 850 ml 1600 ml 1550 ml Balance -565 ml -1280 ml -1490 ml Result Diagram: 03/15/17 0500 03/15/17 0500 Imaging Last Impressions Chest X-Ray 03/10/17 1930 Signed Impressions: Service Date/Time: Friday, March 10, 2017 19:27 - CONCLUSION: 1. Interim thoracentesis on the right without evidence of pneumothorax or other acute complication. There is upper lobe predominant consolidation of the right lung again noted. 2. Basilar consolidation and small to moderate pleural effusion on the left not significantly changed. 3. Persistent right mainstem bronchus intubation. Osman Menjivar MD Thoracentesis 03/10/17 0000 Signed Impressions: Service Date/Time: Friday, March 10, 2017 18:20 - CONCLUSION: Uncomplicated CT-guided thoracentesis. 500 cc of pleural fluid was removed from the right chest. Juan Mcgregor MD Chest CT 03/10/17 0000 Signed Impressions: Service Date/Time: Friday, March 10, 2017 11:51 - CONCLUSION: 1. ETT tip just in the right mainstem bronchus and should be retracted. 2. Moderate to large bilateral pleural effusions with associated compressive atelectasis at the lung bases. 3. Patchy airspace disease in the right upper lobe and anterior right middle lobe consistent with pneumonia. 4. Ancillary findings include dense coronary artery calcifications, prior cholecystectomy, and degenerative spondylosis of the thoracic spine. Jc Montana MD Objective Remarks GENERAL: Patient is 82 yoF, sitting up in bed. SKIN: Warm and dry. HEAD: Normocephalic. EYES: No scleral icterus. No injection or drainage. NECK: trachea midline. +JVD. CARDIOVASCULAR: normal rate, irregularly irregular rhythm. afib by tele. RESPIRATORY: equal chest rise. No accessory muscle use. GASTROINTESTINAL: Abdomen soft, non-tender, nondistended. MUSCULOSKELETAL: No cyanosis, 1+ peripheral edema. Neuro: RASS 0. follows commands. no focal deficits A/P Assessment and Plan Assessment: 82yF with multilobar pneumonia complicated by acute hypoxic respiratory failure, atrial fibrillation, pleural effusion. Clinically improving , however she remains high risk with multiple acute on chronic medical problems. will continue forced diuresis and aggressive pulmonary toilet and physical therapy. 1. Acute hypoxic respiratory failure- resolving. 2. Multilobar pneumonia. 3. Bilateral pleural effusions with compressive atelectasis. s/p right thoracentesis with removal 500ml. 4. Leukocytosis.- resolved. 5. Hyperglycemia.- resolved. 6. Elevated AST.- resolving. 7. History of coronary artery disease and CABG. 8. History of hypertension. 9. Hyperlipidemia. 10. GERD. 11. History of breast cancer. 12 Afib RVR- resolving. 13 Agitated Delirium- resolving. 14 acute intravascular volume overload Plan Neuro: avoid long-acting benzos. d/c scheduled zyperexa. prn qhs zyprexa if not asleep by 2300. melatonin 5mg po qhs for improved sleep-wake cycle. Pulm: s/p CT-guided right thoracentesis with removal 500ml straw colored fluid. Follow up on pleural fuid analysis/cx/cytology wean o2 for goal spo2 > 90% aggressive pulmonary toilet. OOB to chair PT/OT CV: lopressor 37.5mg po q6hr po amio 200mg bid. diltiazem 90 po q6h. continue telemetry. : Monitor renal function, Is and Os and electrolyte replacement per protocol. Lasix 40mg iv x BID for volume overload. diamox 500mg iv x 1 for alkalosis. GI: change to PO Pepcid 10 mg q. 12 , advance diet per nutrition recs. ID: Per ID, stop vanco, keep Levaqin until 03/18. Nasal washing for influenza A and B antigen are negative. ID service is consulted Endo: SSI with Accu-Chek q. 6-hour for glycemic control. Heme: Monitor CBC. GI prophylaxis with Pepcid 10 mg po q12h. DVT prophylaxis with SCDs and therapeutic lovenox for afib (CHADSVaSC > 2). Dispo: will keep in ICU at least 1 more day because she has been very tenuous. will transition care to hospitalist service. Mata Branch MD Mar 15, 2017 09:54
[2017-03-15] MEDS: LEVOFLOXACIN 750 MG PREMIX INJ 150 ML IV SCH (10:46)
[2017-03-15] MEDS: FAMOTIDINE 20 MG TAB PO SCH (20:37)
[2017-03-15] MEDS: SODIUM CHLORIDE 0.9% FLUSH 10 ML FLUSH IVF PRN (20:37)
[2017-03-15] MEDS: MELATONIN 5 MG TAB PO SCH (20:37)
[2017-03-16] VITALS (15 sets, daily range): BP systolic 116–149; BP diastolic 57–65; PULSE 73–111; RESP 22–30; TEMP 98.4–100.2; O2SAT 94–97
[2017-03-16] MEDS: INSULIN NovoLIN REGULAR SUPPLEMENTAL SCALE SQ SCH ×4 (02:00→20:00)
[2017-03-16] MEDS: RESP: ALBUTEROL 2.5 MG/IPRATROPIUM 0.5 MG NEB (SCH) INH ×4 (03:41→20:33)
[2017-03-16] MEDS: DILTIAZEM HCL 60 MG TAB PO SCH ×4 (05:47→23:50)
[2017-03-16] MEDS: METOPROLOL TARTRATE 25 MG TAB PO SCH ×4 (05:47→23:50)
[2017-03-16 06:31] LABS: HEMATOCRIT 35.3 % (35.0-46.0); MEAN CELL VOLUME 84.7 FL (80.0-100.0); MEAN CORPUSCULAR HEMOGLOBIN 27.8 PG (27.0-34.0); MEAN CORPUSCULAR HGB CONC 32.8 % (32.0-36.0); PLATELET COUNT 360 TH/MM3 (150-450); RED BLOOD COUNT 4.17 MIL/MM3 (4.00-5.30); RED CELL DISTRIBUTION WIDTH 14.7 % (11.6-17.2); REVIEW FLAG FINAL; WHITE BLOOD COUNT 10.1 TH/MM3 (4.0-11.0)
[2017-03-16 06:57] LABS: BICARBONATE 24.2 MEQ/L (21.0-32.0); POTASSIUM 3.5 MEQ/L (3.5-5.1)
[2017-03-16] MEDS: FUROSEMIDE 40 MG/4 ML VIAL IV PUSH SCH ×2 (07:54→18:09)
[2017-03-16] MEDS: LACTULOSE SYRUP 20 GM/30 ML CUP PO SCH ×2 (07:54→21:32)
[2017-03-16] MEDS: FAMOTIDINE 20 MG TAB PO SCH ×2 (07:55→21:30)
[2017-03-16] MEDS: DOCUSATE SODIUM 50 MG/SENNA 8.6 MG TAB PO SCH ×2 (07:55→21:31)
[2017-03-16] MEDS: BISACODYL 10 MG SUPP RECTAL SCH (07:55)
[2017-03-16] MEDS: AMIODARONE 200 MG TAB PO SCH ×2 (07:55→21:32)
[2017-03-16] MEDS: POLYETHYLENE GLYCOL 17 GM PKG PO SCH ×2 (07:55→21:32)
[2017-03-16] MEDS: ENOXAPARIN SODIUM 100 MG/ML SYRINGE SQ SCH (07:56)
[2017-03-16] MEDS: LEVOFLOXACIN 750 MG PREMIX INJ 150 ML IV SCH (11:59)
--- NOTE | 2017-03-16 14:05 | HHI.PR ---
Subjective Remarks Pt admitted d/t RUL and RML pneumonia. Pt required intubation with mechanical ventilation & extubated 03/14/17. Pt required aggressive diuresis. Pt also with paroxysmal atrial fibrillation and placed on lovenox. Pt doing well today. pt is tolerating PO intake. no n/v/d no chest pain no SOB. Objective Vitals Vital Signs Date Time Temp Pulse Resp B/P Pulse Ox O2 Delivery O2 Flow Rate FiO2 03/16/17 10:00 82 03/16/17 08:00 73 03/16/17 07:51 94 Nasal Cannula 4.00 03/16/17 06:00 81 03/16/17 04:00 96 Nasal Cannula 4.00 03/16/17 04:00 74 03/16/17 04:00 98.7 74 24 116/57 96 03/16/17 02:00 74 03/16/17 00:00 96 Nasal Cannula 4.00 03/16/17 00:00 83 03/16/17 00:00 100.2 83 26 136/65 96 03/15/17 23:00 78 28 124/69 94 03/15/17 22:05 76 24 130/58 95 03/15/17 22:00 79 03/15/17 22:00 79 30 95 03/15/17 21:07 81 33 120/62 89 03/15/17 21:00 86 33 92 03/15/17 20:15 95 Nasal Cannula 4.00 03/15/17 20:00 94 Nasal Cannula 4.00 03/15/17 20:00 98.9 87 22 105/57 94 03/15/17 20:00 87 03/15/17 18:00 87 03/15/17 16:00 98.1 85 28 107/63 93 03/15/17 16:00 85 03/15/17 14:00 84 03/15/17 03/15/17 03/16/17 15:00 23:00 07:00 Intake Total 793 ml 320 ml 530 ml Output Total 1050 ml 1125 ml 350 ml Balance -257 ml -805 ml 180 ml Intake Oral 240 ml 320 ml 120 ml IV Total 553 ml 0 ml 410 ml Output Urine Total 1050 ml 1125 ml 350 ml Stool Total 0 ml # Bowel Movements 0 0 Result Diagram: 03/16/1752303/16/17523 Imaging Last Impressions Chest X-Ray 03/14/17 0600 Signed Impressions: Service Date/Time: Tuesday, March 14, 2017 04:26 - CONCLUSION: Worsening patchy consolidation of both lungs, especially the bases and a small effusion developing at the left lung base. Unchanged lines and tubes. Endotracheal tube tip is very close to the muriel. Osman Menjivar MD Thoracentesis 03/10/17 0000 Signed Impressions: Service Date/Time: Friday, March 10, 2017 18:20 - CONCLUSION: Uncomplicated CT-guided thoracentesis. 500 cc of pleural fluid was removed from the right chest. Juan Mcgregor MD Chest CT 03/10/17 0000 Signed Impressions: Service Date/Time: Friday, March 10, 2017 11:51 - CONCLUSION: 1. ETT tip just in the right mainstem bronchus and should be retracted. 2. Moderate to large bilateral pleural effusions with associated compressive atelectasis at the lung bases. 3. Patchy airspace disease in the right upper lobe and anterior right middle lobe consistent with pneumonia. 4. Ancillary findings include dense coronary artery calcifications, prior cholecystectomy, and degenerative spondylosis of the thoracic spine. Jc Montana MD Objective Remarks GENERAL: This is a well-nourished, well-developed patient, in no apparent distress. CARDIOVASCULAR: Regular rate and rhythm without murmurs, gallops, or rubs. RESPIRATORY: Clear to auscultation. Breath sounds equal bilaterally. No wheezes , rales, or rhonchi. GASTROINTESTINAL: Abdomen soft, non-tender, nondistended. Normal active bowel sounds MUSCULOSKELETAL: Extremities without clubbing, cyanosis, or edema. NEURO: Alert & Oriented x4 to person, place, time, situation. Moves all ext x4 A/P Problem List: (1) Pneumonia Status: Acute Plan: - comgmt with ID - pt was hypoxic on admission and required mechanical ventilation, extubated 03/14 - thoracentesis 03/10/17with removal of 500ml from right hemithorax - pt is tolerating 4L NC - levaquin - repeat CXR in AM (2) Respiratory failure Status: Acute Plan: - see above (3) Afib Status: Acute Plan: - cardizem, amiodarone, Lopressor - lovenox (4) CAD (coronary artery disease) Status: Chronic Plan: - h/o CABG - lopressor - resume imdur (5) Depression Status: Chronic Plan: - resume cymbalta (6) HTN (hypertension) Status: Chronic Plan: - cardizem, lopressor Problem Qualifiers (1) Pneumonia: Qualified Code: J18.9 - Pneumonia due to infectious organism, unspecified laterality, unspecified part of lung (2) Respiratory failure: Qualified Code: J96.01 - Acute respiratory failure with hypoxia (3) Afib: Qualified Code: I48.91 - Atrial fibrillation, unspecified type (4) CAD (coronary artery disease): Qualified Code: I25.10 - Coronary artery disease involving [place] heart without angina pectoris, unspecified vessel or lesion type (5) Depression: Qualified Code: F32.9 - Depression, unspecified depression type (6) HTN (hypertension): Qualified Code: I10 - Essential hypertension Adan Mosley DO Mar 16, 2017 14:05
[2017-03-16] MEDS ORDERED: ACETAMINOPHEN/HYDROcodone 325 MG/5 MG TAB PO PRN (20:45)
[2017-03-16] MEDS: SODIUM CHLORIDE 0.9% FLUSH 10 ML FLUSH IVF PRN (21:30)
[2017-03-16] MEDS: ISOSORBIDE MONONITRATE 20 MG TAB PO SCH (21:31)
[2017-03-16] MEDS: MELATONIN 5 MG TAB PO SCH (21:32)
[2017-03-17] VITALS (9 sets, daily range): BP systolic 110–138; BP diastolic 62–82; PULSE 79–98; RESP 16–24; TEMP 97.5–98.8; O2SAT 94–98
[2017-03-17] MEDS: INSULIN NovoLIN REGULAR SUPPLEMENTAL SCALE SQ SCH ×4 (01:39→20:00)
[2017-03-17] MEDS: METOPROLOL TARTRATE 25 MG TAB PO SCH (06:00)
[2017-03-17] MEDS: DILTIAZEM-CD 240 MG CAP ER PO SCH ×2 (06:00→08:06)
[2017-03-17 07:59] LABS: HEMATOCRIT 36.8 % (35.0-46.0); MEAN CELL VOLUME 83.6 FL (80.0-100.0); MEAN CORPUSCULAR HEMOGLOBIN 28.3 PG (27.0-34.0); MEAN CORPUSCULAR HGB CONC 33.8 % (32.0-36.0); PLATELET COUNT 384 TH/MM3 (150-450); RED CELL DISTRIBUTION WIDTH 14.8 % (11.6-17.2); REVIEW FLAG FINAL; WHITE BLOOD COUNT 9.2 TH/MM3 (4.0-11.0)
[2017-03-17] MEDS: SODIUM CHLORIDE 0.9% FLUSH 10 ML FLUSH IVF PRN (08:05)
[2017-03-17] MEDS: ISOSORBIDE MONONITRATE 20 MG TAB PO SCH ×2 (08:06→22:57)
[2017-03-17] MEDS: DULoxetine HCl DR 30 MG CAP PO SCH (08:06)
[2017-03-17] MEDS: FUROSEMIDE 40 MG/4 ML VIAL IV PUSH SCH (08:06)
[2017-03-17] MEDS: BISACODYL 10 MG SUPP RECTAL SCH (08:06)
[2017-03-17] MEDS: DOCUSATE SODIUM 50 MG/SENNA 8.6 MG TAB PO SCH ×2 (08:06→22:59)
[2017-03-17] MEDS: AMIODARONE 200 MG TAB PO SCH (08:06)
[2017-03-17] MEDS: FAMOTIDINE 20 MG TAB PO SCH ×2 (08:06→22:59)
[2017-03-17] MEDS: LACTULOSE SYRUP 20 GM/30 ML CUP PO SCH ×3 (08:07→23:00)
[2017-03-17] MEDS: ENOXAPARIN SODIUM 100 MG/ML SYRINGE SQ SCH (08:07)
[2017-03-17] MEDS: POLYETHYLENE GLYCOL 17 GM PKG PO SCH ×3 (08:07→23:00)
[2017-03-17 08:20] LABS: BICARBONATE 27.4 MEQ/L (21.0-32.0); POTASSIUM 3.2 MEQ/L (3.5-5.1)
[2017-03-17] MEDS ORDERED: POTASSIUM CHLORIDE 20 MEQ CONTROLLED RELEASE TAB PO ONE (10:00)
[2017-03-17] MEDS: RESP: ALBUTEROL 2.5 MG/IPRATROPIUM 0.5 MG NEB (SCH) INH ×3 (10:03→19:06)
--- NOTE | 2017-03-17 10:32 | HHI.PR ---
Subjective Remarks feeding patient Objective Vitals heart irreg lung course bs abd s/nt ext no edema mild confusion. pleasant. Vital Signs Date Time Temp Pulse Resp B/P Pulse Ox O2 Delivery O2 Flow Rate FiO2 03/17/17 10:03 94 Nasal Cannula 3.00 03/17/17 08:00 98.8 96 24 130/82 98 03/17/17 04:14 98.0 82 16 120/74 96 03/17/17 01:04 98.1 98 16 110/68 96 03/17/17 00:00 Nasal Cannula 4.00 03/16/17 23:22 111 03/16/17 22:32 24 03/16/17 22:00 94 03/16/17 20:35 96 Nasal Cannula 4.00 03/16/17 20:00 90 03/16/17 20:00 99.8 90 22 149/65 96 03/16/17 20:00 96 Nasal Cannula 4.00 03/16/17 20:00 99.8 90 22 149/65 96 03/16/17 18:00 92 03/16/17 16:00 92 03/16/17 16:00 99.7 92 26 135/61 94 03/16/17 16:00 95 Nasal Cannula 4.00 03/16/17 14:00 94 03/16/17 12:00 86 03/16/17 12:00 96 Nasal Cannula 4.00 03/16/17 12:00 98.4 86 29 124/63 97 03/16/17 03/16/17 03/17/17 15:00 23:00 07:00 Intake Total 870 ml 600 ml Output Total 1350 ml 1000 ml 350 ml Balance -480 ml -400 ml -350 ml Intake Oral 720 ml 600 ml IV Total 150 ml 0 ml Output Urine Total 1350 ml 1000 ml 350 ml # Bowel Movements 0 0 Result Diagram: 03/17/17 0722 03/17/17 0722 Imaging Last Impressions Chest X-Ray 03/14/17 0600 Signed Impressions: Service Date/Time: Tuesday, March 14, 2017 04:26 - CONCLUSION: Worsening patchy consolidation of both lungs, especially the bases and a small effusion developing at the left lung base. Unchanged lines and tubes. Endotracheal tube tip is very close to the muriel. Osman Menjivar MD Thoracentesis 03/10/17 0000 Signed Impressions: Service Date/Time: Friday, March 10, 2017 18:20 - CONCLUSION: Uncomplicated CT-guided thoracentesis. 500 cc of pleural fluid was removed from the right chest. Juan Mcgregor MD Chest CT 03/10/17 0000 Signed Impressions: Service Date/Time: Friday, March 10, 2017 11:51 - CONCLUSION: 1. ETT tip just in the right mainstem bronchus and should be retracted. 2. Moderate to large bilateral pleural effusions with associated compressive atelectasis at the lung bases. 3. Patchy airspace disease in the right upper lobe and anterior right middle lobe consistent with pneumonia. 4. Ancillary findings include dense coronary artery calcifications, prior cholecystectomy, and degenerative spondylosis of the thoracic spine. Jc Montana MD A/P Problem List: (1) Pneumonia Status: Acute Plan: - Pt admitting with pneumonia. developed afib/rvr and systolic chf decompensation/volume overload. - pt was hypoxic on admission and required mechanical ventilation, extubated 03/14 - thoracentesis 03/10/17with removal of 500ml from right hemithorax - pt is tolerating 4L NC cont abx per ID iv to po diuretic. kcl wean oxygen adjust rate control meds. d/c lovenox. antoinettehoais would plan for snf once stable. (2) Respiratory failure Status: Acute Plan: - see above (3) Afib Status: Acute Plan: see above (4) CAD (coronary artery disease) Status: Chronic Plan: - h/o CABG - lopressor - resume imdur (5) Depression Status: Chronic Plan: - resume cymbalta (6) HTN (hypertension) Status: Chronic Plan: cont current meds. Problem Qualifiers (1) Pneumonia: Qualified Code: J18.9 - Pneumonia due to infectious organism, unspecified laterality, unspecified part of lung (2) Respiratory failure: Qualified Code: J96.01 - Acute respiratory failure with hypoxia (3) Afib: Qualified Code: I48.91 - Atrial fibrillation, unspecified type (4) CAD (coronary artery disease): Qualified Code: I25.10 - Coronary artery disease involving [place] heart without angina pectoris, unspecified vessel or lesion type (5) Depression: Qualified Code: F32.9 - Depression, unspecified depression type (6) HTN (hypertension): Qualified Code: I10 - Essential hypertension Morgan Davidson MD Mar 17, 2017 10:32
--- NOTE | 2017-03-17 10:33 | RADRPT ---
EXAM DATE/TIME: 03/17/2017 09:10 [facility] COMPARISON: CHEST SINGLE AP, March 14, 2017, 4:26. INDICATIONS : Congestive heart failure. MEDICAL HISTORY : Chronic obstructive pulmonary disease. SURGICAL HISTORY : Left breast lumpectomy. ENCOUNTER: Subsequent ACUITY: 1 week PAIN SCORE: 5/10 LOCATION: Back. FINDINGS: Following extubation lung volumes are reasonably well-maintained. Minimal patchy airspace disease is seen scattered in both lungs. Minimal consolidative changes are present in the left base. These silvestre ve improved in the interval. Heart and pulmonary vascularity are normal. CONCLUSION: Minimal parenchymal changes persist left base, improving following extubation. Dany Mcgregor MD FACR on March 17, 2017 at 10:06 Board Certified Radiologist. This report was verified electronically.
[2017-03-17] MEDS: LEVOFLOXACIN 750 MG PREMIX INJ 150 ML IV SCH (12:12)
[2017-03-17] MEDS: METOPROLOL TARTRATE 50 MG TAB PO SCH ×2 (13:04→23:00)
--- NOTE | 2017-03-17 13:24 | HHI.IDPN ---
Subjective Subjective Remarks 82 year old female, lives at home with , admitted for SOB, cough. Required intubation Notes reviewed Doing well post extubation One low grade temp this weekend Looks very weak Last CXR better Antibiotics Levaquin Vancomycin Lines PIV Past Medical History Coronary artery disease. Hypertension. Gastroesophageal reflux disease. Arthritis. Severe, has gotten shots on her R hip, being evaluated for her L hip History of CVA. Hyperlipidemia. History of left breast cancer. Past Surgical History Left breast lumpectomy. Back surgery. Cholecystectomy. CABG x3. Bilateral lens implants. Tonsillectomy. Cataract surgery. Allergies: Coded Allergies: Amlodipine (Unverified Allergy, Severe, swellings in the legs, 03/29/14) Azithromycin (Verified Allergy, Severe, 03/29/14) unknown Darvon (Verified Allergy, Severe, LIGHT HEADED, 03/29/14) Naproxen (Verified Allergy, Severe, DIZZINESS, 03/29/14) Penicillin (Verified Allergy, Severe, Rash, 03/29/14) Protonix (Verified Allergy, Severe, 03/29/14) pt states its ok to take Sulfa (Verified Allergy, Severe, Hives, 03/29/14) CONFIRM? Zetia (Unverified Allergy, Severe, RASH, 03/29/14) CRESTOR (Unverified Allergy, Unknown, legs aching, 03/29/14) Lipitor (Verified Adverse Reaction, Severe, MUSCLE ACHES, JOINT SORENESS, 03/29/14) pt states its ok to take Zocor (Verified Adverse Reaction, Severe, MUSCLE ACHES, JOINT SORENESS, ) Uncoded Allergies: LOTEMAX (Allergy, Severe, eye lids get sore, 03/25/14) STATINS (Adverse Reaction, Intermediate, MUSCLE CRAMPS LEGS AND SORENESS IN JOINTS, 09/13/10) Objective . Vital Signs Date Time Temp Pulse Resp B/P Pulse Ox O2 Delivery O2 Flow Rate FiO2 03/17/17 11:59 98.3 89 22 138/75 96 03/17/17 10:03 94 Nasal Cannula 3.00 03/17/17 08:00 98.8 96 24 130/82 98 03/17/17 04:14 98.0 82 16 120/74 96 03/17/17 01:04 98.1 98 16 110/68 96 03/17/17 00:00 Nasal Cannula 4.00 03/16/17 23:22 111 03/16/17 22:32 24 03/16/17 22:00 94 03/16/17 20:35 96 Nasal Cannula 4.00 03/16/17 20:00 90 03/16/17 20:00 99.8 90 22 149/65 96 03/16/17 20:00 96 Nasal Cannula 4.00 03/16/17 20:00 99.8 90 22 149/65 96 03/16/17 18:00 92 03/16/17 16:00 92 03/16/17 16:00 99.7 92 26 135/61 94 03/16/17 16:00 95 Nasal Cannula 4.00 03/16/17 14:00 94 03/16/17 03/16/17 03/17/17 14:59 22:59 06:59 Intake Total 870 ml 600 ml Output Total 1350 ml 1000 ml 350 ml Balance -480 ml -400 ml -350 ml Intake Oral 720 ml 600 ml IV Total 150 ml 0 ml Output Urine Total 1350 ml 1000 ml 350 ml # Bowel Movements 0 0 . Laboratory Tests Test 03/16/17 03/17/17 05:24 07:22 White Blood Count 10.1 TH/MM3 9.2 TH/MM3 Red Blood Count 4.17 MIL/MM3 4.40 MIL/MM3 Hemoglobin 11.6 GM/DL 12.5 GM/DL Hematocrit 35.3 % 36.8 % Mean Corpuscular Volume 84.7 FL 83.6 FL Mean Corpuscular Hemoglobin 27.8 PG 28.3 PG Mean Corpuscular Hemoglobin 32.8 % 33.8 % Concent Red Cell Distribution Width 14.7 % 14.8 % Platelet Count 360 TH/MM3 384 TH/MM3 Mean Platelet Volume 8.1 FL 7.9 FL Laboratory Tests Test 03/15/17 03/16/17 03/17/17 18:58 05:24 07:22 Potassium Level 3.3 MEQ/L 3.5 MEQ/L 3.2 MEQ/L Sodium Level 141 MEQ/L 142 MEQ/L Chloride Level 106 MEQ/L 106 MEQ/L Carbon Dioxide Level 24.2 MEQ/L 27.4 MEQ/L Anion Gap 11 MEQ/L 9 MEQ/L Blood Urea Nitrogen 25 MG/DL 24 MG/DL Creatinine 0.70 MG/DL 0.63 MG/DL Estimat Glomerular Filtration 80 ML/MIN 90 ML/MIN Rate Random Glucose 146 MG/DL 133 MG/DL Calcium Level 8.6 MG/DL 8.9 MG/DL Imaging Chest X-Ray 03/14/17 0600 Signed Impressions: Service Date/Time: Tuesday, March 14, 2017 04:26 - CONCLUSION: Worsening patchy consolidation of both lungs, especially the bases and a small effusion developing at the left lung base. Unchanged lines and tubes. Endotracheal tube tip is very close to the muriel. Omsan Menjivar MD Chest X-Ray 03/11/17 0000 Signed Impressions: Service Date/Time: Saturday, March 11, 2017 09:05 - CONCLUSION: ET tube tip is still close to the muriel and needs to be withdrawn 1 cm. Persistent left lower lobe consolidation. August Small MD Thoracentesis 03/10/17 0000 Signed Impressions: Service Date/Time: Friday, March 10, 2017 18:20 - CONCLUSION: Uncomplicated CT-guided thoracentesis. 500 cc of pleural fluid was removed from the right chest. Juan Mcgregor MD Chest CT 03/10/17 0000 Signed Impressions: Service Date/Time: Friday, March 10, 2017 11:51 - CONCLUSION: 1. ETT tip just in the right mainstem bronchus and should be retracted. 2. Moderate to large bilateral pleural effusions with associated compressive atelectasis at the lung bases. 3. Patchy airspace disease in the right upper lobe and anterior right middle lobe consistent with pneumonia. 4. Ancillary findings include dense coronary artery calcifications, prior cholecystectomy, and degenerative spondylosis of the thoracic spine. Jc Montana MD Physical Exam GENERAL: awake, weak, not in distress SKIN: Warm and dry. No generalized rash HEENT: [place] conjunctiva. No petechia or hemorrhage. No scleral icterus. Moist mucosa NECK: Trachea midline. Supple and not tender, no meningeal signs CARDIOVASCULAR: Regular rate and rhythm. No murmurs, rubs or gallops heard RESPIRATORY: Coarse breath sounds bilaterally. Breath sounds equal bilaterally. ABDOMEN: Soft, obese, nondistended. No reaction to deep palpation. Bowel sounds present and normoactive. No guarding. No rebound. No organomegaly. EXTREMITIES: No clubbing, cyanosis, or edema. No joint effusion, has good ROM. No calf tenderness. Her feet are cool. NEUROLOGICAL: Awake, weak PSYCHIATRIC: Cooperative LINE: No evidence of infection : Smith in place, and urine with sediment. Assessment & Plan Remarks IMPRESSION Sepsis on admission due to CAP Community acquired Pneumonia, came from home Respiratory failure Hx CAD, HTN Multiple Abx allergy - has received cephalosporins in the past RECOMMENDATION Continue Levaquin - should cover CAP as well - give Levaquin until 03/18 Follow temps Monitor progress Will likely need rehab on D/C Clinically doing well from ID standpoint I will sign off Please reconsult if with any new ID issue or question Radha Hawthorne MD Mar 17, 2017 13:24
[2017-03-17] MEDS: FUROSEMIDE 20 MG TAB PO SCH (17:12)
[2017-03-17] MEDS: POTASSIUM CHLORIDE 20 MEQ CONTROLLED RELEASE TAB PO SCH (22:57)
[2017-03-17] MEDS: MELATONIN 5 MG TAB PO SCH (22:58)
[2017-03-18] VITALS (10 sets, daily range): BP systolic 114–130; BP diastolic 58–79; PULSE 72–105; RESP 16–20; TEMP 97–99.2; O2SAT 92–98
[2017-03-18] MEDS: INSULIN NovoLIN REGULAR SUPPLEMENTAL SCALE SQ SCH ×4 (03:00→20:00)
[2017-03-18] MEDS: RESP: ALBUTEROL 2.5 MG/IPRATROPIUM 0.5 MG NEB (SCH) INH ×4 (04:05→21:23)
[2017-03-18 06:27] LABS: HEMATOCRIT 34.7 % (35.0-46.0); MEAN CELL VOLUME 83.4 FL (80.0-100.0); MEAN CORPUSCULAR HEMOGLOBIN 27.9 PG (27.0-34.0); MEAN CORPUSCULAR HGB CONC 33.4 % (32.0-36.0); PLATELET COUNT 354 TH/MM3 (150-450); RED BLOOD COUNT 4.16 MIL/MM3 (4.00-5.30); RED CELL DISTRIBUTION WIDTH 14.5 % (11.6-17.2); REVIEW FLAG FINAL; WHITE BLOOD COUNT 8.3 TH/MM3 (4.0-11.0)
[2017-03-18 06:31] LABS: BICARBONATE 28.2 MEQ/L (21.0-32.0); MAGNESIUM 2.4 MG/DL (1.5-2.5); POTASSIUM 3.7 MEQ/L (3.5-5.1)
[2017-03-18] MEDS: METOPROLOL TARTRATE 50 MG TAB PO SCH ×3 (06:42→21:53)
[2017-03-18] MEDS: AMIODARONE 200 MG TAB PO SCH (08:19)
[2017-03-18] MEDS: DULoxetine HCl DR 30 MG CAP PO SCH (08:19)
[2017-03-18] MEDS: APIXABAN 2.5 MG TABLET PO SCH ×2 (08:19→21:53)
[2017-03-18] MEDS: FUROSEMIDE 20 MG TAB PO SCH ×2 (08:20→17:16)
[2017-03-18] MEDS: ISOSORBIDE MONONITRATE 20 MG TAB PO SCH ×2 (08:20→21:53)
[2017-03-18] MEDS: DOCUSATE SODIUM 50 MG/SENNA 8.6 MG TAB PO SCH ×2 (08:20→21:53)
[2017-03-18] MEDS: FAMOTIDINE 20 MG TAB PO SCH ×2 (08:20→21:53)
[2017-03-18] MEDS: POLYETHYLENE GLYCOL 17 GM PKG PO SCH ×2 (08:21→21:53)
[2017-03-18] MEDS: DILTIAZEM-CD 240 MG CAP ER PO SCH (08:21)
[2017-03-18] MEDS: LACTULOSE SYRUP 20 GM/30 ML CUP PO SCH ×2 (08:21→21:53)
[2017-03-18] MEDS: POTASSIUM CHLORIDE 20 MEQ CONTROLLED RELEASE TAB PO SCH ×2 (08:21→21:53)
--- NOTE | 2017-03-18 09:12 | HHI.PR ---
Subjective Remarks sleepy. arousable. Objective Vitals arousable. disoriented pleasant heart rg lung diminished bases abd s/nt ext no edema Vital Signs Date Time Temp Pulse Resp B/P Pulse Ox O2 Delivery O2 Flow Rate FiO2 03/18/17 08:23 92 Nasal Cannula 3.00 03/18/17 08:00 97.0 95 18 130/70 98 03/18/17 05:00 98.3 96 17 125/58 97 03/18/17 04:06 94 Nasal Cannula 3.00 03/18/17 00:00 Nasal Cannula 4.00 03/18/17 00:00 98.0 84 16 115/68 94 03/17/17 20:00 97.5 88 16 129/68 97 03/17/17 20:00 Nasal Cannula 4.00 03/17/17 16:00 98.3 79 22 112/62 97 03/17/17 15:36 95 Nasal Cannula 3.00 03/17/17 12:00 Nasal Cannula 4.00 03/17/17 11:59 98.3 89 22 138/75 96 03/17/17 10:03 94 Nasal Cannula 3.00 03/17/17 03/17/17 03/18/17 15:00 23:00 07:00 Intake Total 480 ml 480 ml 120 ml Output Total 950 ml 450 ml 350 ml Balance -470 ml 30 ml -230 ml Intake Oral 480 ml 480 ml 120 ml Output Urine Total 950 ml 450 ml 350 ml # Bowel Movements 1 Result Diagram: 03/18/17 0500 03/18/17 0500 Imaging Last Impressions Chest X-Ray 03/14/17 0600 Signed Impressions: Service Date/Time: Tuesday, March 14, 2017 04:26 - CONCLUSION: Worsening patchy consolidation of both lungs, especially the bases and a small effusion developing at the left lung base. Unchanged lines and tubes. Endotracheal tube tip is very close to the muriel. Osman Menjivar MD Thoracentesis 03/10/17 0000 Signed Impressions: Service Date/Time: Friday, March 10, 2017 18:20 - CONCLUSION: Uncomplicated CT-guided thoracentesis. 500 cc of pleural fluid was removed from the right chest. Juan Mcgregor MD Chest CT 03/10/17 0000 Signed Impressions: Service Date/Time: Friday, March 10, 2017 11:51 - CONCLUSION: 1. ETT tip just in the right mainstem bronchus and should be retracted. 2. Moderate to large bilateral pleural effusions with associated compressive atelectasis at the lung bases. 3. Patchy airspace disease in the right upper lobe and anterior right middle lobe consistent with pneumonia. 4. Ancillary findings include dense coronary artery calcifications, prior cholecystectomy, and degenerative spondylosis of the thoracic spine. Jc Montana MD A/P Problem List: (1) Pneumonia Status: Acute Plan: - Pt admitting with pneumonia. developed afib/rvr and systolic chf decompensation/volume overload. - pt was hypoxic on admission and required mechanical ventilation, extubated 03/14 - thoracentesis 03/10/17with removal of 500ml from right hemithorax - pt is tolerating 4L NC cont abx per ID. last dose today cont po lasix/kcl..monitor bmp wean oxygen adjusted po afib rate control..monitor hr eliquis added overall very weak and still confused. will need snf. (2) Respiratory failure Status: Acute Plan: - see above (3) Afib Status: Acute Plan: see above (4) CAD (coronary artery disease) Status: Chronic Plan: - h/o CABG - lopressor - resume imdur (5) Depression Status: Chronic Plan: - resume cymbalta (6) HTN (hypertension) Status: Chronic Plan: cont current meds. Problem Qualifiers (1) Pneumonia: Qualified Code: J18.9 - Pneumonia due to infectious organism, unspecified laterality, unspecified part of lung (2) Respiratory failure: Qualified Code: J96.01 - Acute respiratory failure with hypoxia (3) Afib: Qualified Code: I48.91 - Atrial fibrillation, unspecified type (4) CAD (coronary artery disease): Qualified Code: I25.10 - Coronary artery disease involving [place] heart without angina pectoris, unspecified vessel or lesion type (5) Depression: Qualified Code: F32.9 - Depression, unspecified depression type (6) HTN (hypertension): Qualified Code: I10 - Essential hypertension Morgan Davidson MD Mar 18, 2017 09:12
[2017-03-18] MEDS: LEVOFLOXACIN 750 MG PREMIX INJ 150 ML IV SCH (12:04)
[2017-03-18] MEDS: MELATONIN 5 MG TAB PO SCH (21:53)
[2017-03-19] VITALS (11 sets, daily range): BP systolic 131–147; BP diastolic 71–84; PULSE 81–122; RESP 18–20; TEMP 98–99.9; O2SAT 96–98
[2017-03-19] MEDS: INSULIN NovoLIN REGULAR SUPPLEMENTAL SCALE SQ SCH ×4 (02:00→20:00)
[2017-03-19] MEDS: RESP: ALBUTEROL 2.5 MG/IPRATROPIUM 0.5 MG NEB (SCH) INH ×4 (04:09→21:01)
[2017-03-19] MEDS: METOPROLOL TARTRATE 50 MG TAB PO SCH ×3 (06:26→20:56)
--- NOTE | 2017-03-19 08:38 | HHI.PR ---
Subjective Remarks pleasant. confused Objective Vitals heart reg lung course bs abd s/nt ext no edema chaudhari Vital Signs Date Time Temp Pulse Resp B/P Pulse Ox O2 Delivery O2 Flow Rate FiO2 03/19/17 04:09 96 Nasal Cannula 3.00 03/19/17 04:00 98.2 104 18 137/76 98 03/19/17 00:00 98.5 81 18 131/71 96 03/18/17 20:27 93 03/18/17 20:00 99.2 99 20 114/79 96 03/18/17 19:42 Nasal Cannula 3.00 03/18/17 16:09 96 Nasal Cannula 3.00 03/18/17 16:00 Nasal Cannula 4.00 03/18/17 16:00 97.0 72 20 124/62 92 03/18/17 12:00 Nasal Cannula 3.00 03/18/17 11:53 98.3 105 20 119/77 96 03/18/17 03/18/17 03/19/17 15:00 23:00 07:00 Intake Total 480 ml 120 ml 0 ml Output Total 600 ml 600 ml 450 ml Balance -120 ml -480 ml -450 ml Intake Oral 480 ml 120 ml 0 ml Output Urine Total 600 ml 600 ml 450 ml # Bowel Movements 0 0 0 Result Diagram: 03/18/17 0500 03/18/17 0500 Imaging Last Impressions Chest X-Ray 03/14/17 0600 Signed Impressions: Service Date/Time: Tuesday, March 14, 2017 04:26 - CONCLUSION: Worsening patchy consolidation of both lungs, especially the bases and a small effusion developing at the left lung base. Unchanged lines and tubes. Endotracheal tube tip is very close to the muriel. Osman Menjivar MD Thoracentesis 03/10/17 0000 Signed Impressions: Service Date/Time: Friday, March 10, 2017 18:20 - CONCLUSION: Uncomplicated CT-guided thoracentesis. 500 cc of pleural fluid was removed from the right chest. Juna Mcgregor MD Chest CT 03/10/17 0000 Signed Impressions: Service Date/Time: Friday, March 10, 2017 11:51 - CONCLUSION: 1. ETT tip just in the right mainstem bronchus and should be retracted. 2. Moderate to large bilateral pleural effusions with associated compressive atelectasis at the lung bases. 3. Patchy airspace disease in the right upper lobe and anterior right middle lobe consistent with pneumonia. 4. Ancillary findings include dense coronary artery calcifications, prior cholecystectomy, and degenerative spondylosis of the thoracic spine. Jc Montana MD A/P Problem List: (1) Pneumonia Status: Acute Plan: - Pt admitting with pneumonia. developed afib/rvr and systolic chf decompensation/volume overload. - pt was hypoxic on admission and required mechanical ventilation, extubated 03/14 - thoracentesis 03/10/17with removal of 500ml from right hemithorax abx course complete with levaquin cont po lasix/kcl..monitor bmp wean oxygen adjusted po afib rate control..monitor hr eliquis added overall very weak and still confused. will need snf. ct head today snf next 24 to 48hrs. (2) Respiratory failure Status: Acute Plan: - see above (3) Afib Status: Acute Plan: see above (4) CAD (coronary artery disease) Status: Chronic Plan: - h/o CABG - lopressor - resume imdur (5) Depression Status: Chronic Plan: - resume cymbalta (6) HTN (hypertension) Status: Chronic Plan: cont current meds. Problem Qualifiers (1) Pneumonia: Qualified Code: J18.9 - Pneumonia due to infectious organism, unspecified laterality, unspecified part of lung (2) Respiratory failure: Qualified Code: J96.01 - Acute respiratory failure with hypoxia (3) Afib: Qualified Code: I48.91 - Atrial fibrillation, unspecified type (4) CAD (coronary artery disease): Qualified Code: I25.10 - Coronary artery disease involving [place] heart without angina pectoris, unspecified vessel or lesion type (5) Depression: Qualified Code: F32.9 - Depression, unspecified depression type (6) HTN (hypertension): Qualified Code: I10 - Essential hypertension Morgan Davidson MD Mar 19, 2017 08:38
[2017-03-19] MEDS: POLYETHYLENE GLYCOL 17 GM PKG PO SCH ×2 (09:00→20:54)
[2017-03-19] MEDS: POTASSIUM CHLORIDE 20 MEQ CONTROLLED RELEASE TAB PO SCH ×2 (09:19→20:55)
[2017-03-19] MEDS: AMIODARONE 200 MG TAB PO SCH (09:19)
[2017-03-19] MEDS: FUROSEMIDE 20 MG TAB PO SCH ×2 (09:19→16:25)
[2017-03-19] MEDS: APIXABAN 2.5 MG TABLET PO SCH ×2 (09:19→20:55)
[2017-03-19] MEDS: DOCUSATE SODIUM 50 MG/SENNA 8.6 MG TAB PO SCH ×2 (09:19→20:55)
[2017-03-19] MEDS: DILTIAZEM-CD 240 MG CAP ER PO SCH (09:19)
[2017-03-19] MEDS: FAMOTIDINE 20 MG TAB PO SCH ×2 (09:19→20:55)
[2017-03-19] MEDS: DULoxetine HCl DR 30 MG CAP PO SCH (09:19)
[2017-03-19 09:45] LABS: HEMATOCRIT 37.2 % (35.0-46.0); MEAN CELL VOLUME 85.2 FL (80.0-100.0); MEAN CORPUSCULAR HEMOGLOBIN 27.3 PG (27.0-34.0); PLATELET COUNT 347 TH/MM3 (150-450); RED BLOOD COUNT 4.36 MIL/MM3 (4.00-5.30); RED CELL DISTRIBUTION WIDTH 14.7 % (11.6-17.2); REVIEW FLAG FINAL; WHITE BLOOD COUNT 9.1 TH/MM3 (4.0-11.0)
[2017-03-19 10:15] LABS: BICARBONATE 25.3 MEQ/L (21.0-32.0); POTASSIUM 3.3 MEQ/L (3.5-5.1)
[2017-03-19] MEDS: ISOSORBIDE MONONITRATE 20 MG TAB PO SCH ×2 (10:15→20:55)
--- NOTE | 2017-03-19 12:02 | RADRPT ---
EXAM DATE/TIME: 03/19/2017 11:34 [facility] COMPARISON: CT BRAIN W/O CONTRAST, September 29, 2011, 14:42. INDICATIONS : Altered mental status, confusion. RADIATION DOSE: 47.68 CTDIvol (mGy) MEDICAL HISTORY : Cardiovascular disease. Carcinoma, breast. Hypertension. SURGICAL HISTORY : None. ENCOUNTER: Initial ACUITY: 1 day PAIN SCALE: 0/10 LOCATION: cranial TECHNIQUE: Multiple contiguous axial images were obtained of the head. Using automated exposure control and adj ustment of the mA and/or kV according to patient size, radiation dose was kept as low as reasonably a chievable to obtain optimal diagnostic quality images. FINDINGS: CEREBRUM: Mild cerebral atrophy is noted. No evidence of midline shift, mass lesion, hemorrhage or acute infarc tion. No extra-axial fluid collections are seen. POSTERIOR FOSSA: The cerebellum and brainstem are intact. The 4th ventricle is midline. The cerebellopontine angle i s unremarkable. EXTRACRANIAL: The visualized portion of the orbits is intact. SKULL: The calvaria is intact. No evidence of skull fracture. CONCLUSION: 1. Mild cerebral atrophy. 2. No acute infarct, acute hemorrhage, mass effect or extra-axial fluid collections. Fam Sanderson MD on March 19, 2017 at 11:58 Board Certified Radiologist. This report was verified electronically.
[2017-03-19] MEDS ORDERED: POTASSIUM CHLORIDE 20 MEQ CONTROLLED RELEASE TAB PO ONE (13:30)
[2017-03-19] MEDS: MELATONIN 5 MG TAB PO SCH (20:55)
[2017-03-20] VITALS (10 sets, daily range): BP systolic 120–141; BP diastolic 64–87; PULSE 104–122; RESP 18–20; TEMP 98–99.6; O2SAT 95–99
[2017-03-20] MEDS: INSULIN NovoLIN REGULAR SUPPLEMENTAL SCALE SQ SCH ×4 (02:00→20:04)
[2017-03-20] MEDS: RESP: ALBUTEROL 2.5 MG/IPRATROPIUM 0.5 MG NEB (SCH) INH ×4 (04:56→21:25)
[2017-03-20] MEDS: METOPROLOL TARTRATE 50 MG TAB PO SCH (06:28)
[2017-03-20] MEDS ORDERED: METOPROLOL TARTRATE 25 MG TAB PO ONE (07:15)
[2017-03-20 09:00] LABS: BICARBONATE 25.8 MEQ/L (21.0-32.0); POTASSIUM 3.9 MEQ/L (3.5-5.1)
--- NOTE | 2017-03-20 09:04 | HHI.PR ---
Subjective Remarks seems more alert. Objective Vitals heart irreg lung course bs abd s/nt ext no edema Vital Signs Date Time Temp Pulse Resp B/P Pulse Ox O2 Delivery O2 Flow Rate FiO2 03/20/17 08:00 98.6 108 18 141/87 96 03/20/17 04:57 95 Nasal Cannula 3.00 03/20/17 04:00 98.7 117 18 128/73 97 03/20/17 00:00 98.0 122 20 127/64 96 03/19/17 21:01 96 Nasal Cannula 2.00 03/19/17 20:28 105 03/19/17 20:00 99.9 122 20 139/80 98 03/19/17 19:32 Nasal Cannula 2.00 03/19/17 16:00 99.2 110 20 146/84 96 03/19/17 16:00 Nasal Cannula 3.00 03/19/17 12:00 Nasal Cannula 3.00 03/19/17 12:00 98.0 100 20 138/74 97 03/19/17 09:45 97 Nasal Cannula 3.00 03/19/17 03/19/17 03/20/17 15:00 23:00 07:00 Intake Total 480 ml Output Total 500 ml 2000 ml Balance -20 ml -2000 ml Intake Oral 480 ml IV Total 0 ml Output Urine Total 500 ml 2000 ml # Bowel Movements 0 Result Diagram: 03/19/17 0850 03/20/17 0730 Imaging Last Impressions Chest X-Ray 03/14/17 0600 Signed Impressions: Service Date/Time: Tuesday, March 14, 2017 04:26 - CONCLUSION: Worsening patchy consolidation of both lungs, especially the bases and a small effusion developing at the left lung base. Unchanged lines and tubes. Endotracheal tube tip is very close to the muriel. Osman Menjivar MD Thoracentesis 03/10/17 0000 Signed Impressions: Service Date/Time: Friday, March 10, 2017 18:20 - CONCLUSION: Uncomplicated CT-guided thoracentesis. 500 cc of pleural fluid was removed from the right chest. Juan Mcgregor MD Chest CT 03/10/17 0000 Signed Impressions: Service Date/Time: Friday, March 10, 2017 11:51 - CONCLUSION: 1. ETT tip just in the right mainstem bronchus and should be retracted. 2. Moderate to large bilateral pleural effusions with associated compressive atelectasis at the lung bases. 3. Patchy airspace disease in the right upper lobe and anterior right middle lobe consistent with pneumonia. 4. Ancillary findings include dense coronary artery calcifications, prior cholecystectomy, and degenerative spondylosis of the thoracic spine. Jc Montana MD A/P Problem List: (1) Pneumonia Status: Acute Plan: - Pt admitting with pneumonia. developed afib/rvr and systolic chf decompensation/volume overload. - pt was hypoxic on admission and required mechanical ventilation, extubated 03/14 - thoracentesis 03/10/17with removal of 500ml from right hemithorax - ct head 03/19 neg for acute cva. abx course complete with levaquin cont po lasix/kcl..monitor bmp wean oxygen adjusted po afib rate control today due to breakthrough rvr... ..once HR control adequate then d/c to snf...hopefully by tomorrow.. alyssa added (2) Respiratory failure Status: Acute Plan: - see above (3) Afib Status: Acute Plan: see above (4) CAD (coronary artery disease) Status: Chronic Plan: - h/o CABG - lopressor - resume imdur (5) Depression Status: Chronic Plan: - resume cymbalta (6) HTN (hypertension) Status: Chronic Plan: cont current meds. Problem Qualifiers (1) Pneumonia: Qualified Code: J18.9 - Pneumonia due to infectious organism, unspecified laterality, unspecified part of lung (2) Respiratory failure: Qualified Code: J96.01 - Acute respiratory failure with hypoxia (3) Afib: Qualified Code: I48.91 - Atrial fibrillation, unspecified type (4) CAD (coronary artery disease): Qualified Code: I25.10 - Coronary artery disease involving [place] heart without angina pectoris, unspecified vessel or lesion type (5) Depression: Qualified Code: F32.9 - Depression, unspecified depression type (6) HTN (hypertension): Qualified Code: I10 - Essential hypertension Morgan Davidson MD Mar 20, 2017 09:04
[2017-03-20] MEDS: DILTIAZEM-CD 240 MG CAP ER PO SCH (11:02)
[2017-03-20] MEDS: DULoxetine HCl DR 30 MG CAP PO SCH (11:03)
[2017-03-20] MEDS: FUROSEMIDE 20 MG TAB PO SCH ×2 (11:03→17:29)
[2017-03-20] MEDS: AMIODARONE 200 MG TAB PO SCH (11:03)
[2017-03-20] MEDS: FAMOTIDINE 20 MG TAB PO SCH ×2 (11:03→20:01)
[2017-03-20] MEDS: POTASSIUM CHLORIDE 20 MEQ CONTROLLED RELEASE TAB PO SCH ×2 (11:04→20:00)
[2017-03-20] MEDS: APIXABAN 2.5 MG TABLET PO SCH ×2 (11:05→20:01)
[2017-03-20] MEDS: ISOSORBIDE MONONITRATE 20 MG TAB PO SCH ×2 (11:05→20:01)
[2017-03-20] MEDS: POLYETHYLENE GLYCOL 17 GM PKG PO SCH ×2 (11:09→20:02)
[2017-03-20] MEDS: DOCUSATE SODIUM 50 MG/SENNA 8.6 MG TAB PO SCH ×2 (11:09→20:02)
[2017-03-20] MEDS: METOPROLOL TARTRATE 25 MG TAB PO SCH ×2 (14:00→23:19)
[2017-03-20] MEDS: MELATONIN 5 MG TAB PO SCH (20:01)
[2017-03-21] VITALS: BP 143/69; PULSE 88; RESP 18; TEMP 98.3; O2SAT 100
[2017-03-21] MEDS: INSULIN NovoLIN REGULAR SUPPLEMENTAL SCALE SQ SCH ×2 (02:00→08:00)
[2017-03-21 04:00] VITALS: BP 128/66; PULSE 109; RESP 18; TEMP 99.2; O2SAT 98
[2017-03-21] MEDS: RESP: ALBUTEROL 2.5 MG/IPRATROPIUM 0.5 MG NEB (SCH) INH ×2 (04:28→07:47)
[2017-03-21] MEDS: METOPROLOL TARTRATE 25 MG TAB PO SCH (05:14)
[2017-03-21 08:00] VITALS: BP 154/70; PULSE 90; RESP 20; TEMP 97.8; O2SAT 97
[2017-03-21] MEDS: POLYETHYLENE GLYCOL 17 GM PKG PO SCH (08:57)
[2017-03-21] MEDS: ISOSORBIDE MONONITRATE 20 MG TAB PO SCH (08:59)
[2017-03-21] MEDS: FAMOTIDINE 20 MG TAB PO SCH (08:59)
[2017-03-21] MEDS: DULoxetine HCl DR 30 MG CAP PO SCH (08:59)
[2017-03-21] MEDS: POTASSIUM CHLORIDE 20 MEQ CONTROLLED RELEASE TAB PO SCH (08:59)
[2017-03-21] MEDS: FUROSEMIDE 20 MG TAB PO SCH (08:59)
[2017-03-21] MEDS: AMIODARONE 200 MG TAB PO SCH (09:00)
[2017-03-21] MEDS: DILTIAZEM-CD 240 MG CAP ER PO SCH (09:00)
[2017-03-21] MEDS: DOCUSATE SODIUM 50 MG/SENNA 8.6 MG TAB PO SCH (09:00)
[2017-03-21] MEDS: APIXABAN 2.5 MG TABLET PO SCH (09:00)
[2017-03-21] MEDS ORDERED: GNP5TAB6 PO (09:37)
[2017-03-21] MEDS ORDERED: SENN1TAB PO (09:37)
[2017-03-21] MEDS ORDERED: POTA20TA5 PO (09:37)
[2017-03-21] MEDS ORDERED: IPRASOL INH (09:37)
[2017-03-21] MEDS ORDERED: CARD240C6 PO (09:37)
[2017-03-21] MEDS ORDERED: FAMO20TA2 PO (09:37)
[2017-03-21] MEDS ORDERED: METO25TA3 PO (09:37)
[2017-03-21] MEDS ORDERED: PRAM0.12 PO (09:37)
[2017-03-21] MEDS ORDERED: FURO20TA PO (09:37)
[2017-03-21] MEDS ORDERED: NORC5TAB PO (09:37)
[2017-03-21] MEDS ORDERED: AMIO200T PO (09:37)
[2017-03-21] MEDS ORDERED: APIX2.5T PO (09:37)
--- NOTE | 2017-03-21 09:37 | HHI.DCPOC ---
Discharge Care Plan Diagnosis: (1) Respiratory failure (2) Afib (3) Pneumonia (4) CAD (coronary artery disease) (5) Depression (6) HTN (hypertension) Goals to Promote Your Health * To prevent worsening of your condition and complications * To maintain your health at the optimal level Directions to Meet Your Goals Take your medications as prescribed Follow your dietary instruction Follow activity as directed Keep your appointments as scheduled Take your immunizations and boosters as scheduled If your symptoms worsen call your PCP, if no PCP go to Urgent Care Center or Emergency Room Smoking is Dangerous to Your Health. Avoid second hand smoke Call the 24-hour hour crisis hotline for domestic abuse at Morgan Davidson MD Mar 21, 2017 09:37
--- NOTE | 2017-03-21 09:46 | HHI.DS ---
Discharge Summary Admission Date Mar 10, 2017 at 09:00 Discharge Date: Mar 21, 2017 Admitting Diagnosis RESPIRATORY FAILURE, MULTILOBAR PNA, CARDIAC STRAIN (1) Pneumonia Diagnosis: Principal (2) Systolic CHF Diagnosis: Principal (3) Respiratory failure Diagnosis: Principal (4) Afib Diagnosis: Principal (5) CAD (coronary artery disease) Diagnosis: Secondary (6) Depression Diagnosis: Secondary (7) HTN (hypertension) Diagnosis: Secondary CBC/BMP: 03/19/17 0850 03/20/17 0730 Significant Findings Laboratory Tests Test 03/19/17 03/20/17 08:50 07:30 Potassium Level 3.3 MEQ/L (3.5-5.1) Random Glucose 107 MG/DL 113 MG/DL (74-106) (74-106) Estimat Glomerular Filtration 83 ML/MIN (>89) Rate Hospital Course - Pt admitting with pneumonia. developed afib/rvr and systolic chf decompensation/volume overload. - pt was hypoxic on admission and required mechanical ventilation, extubated 03/14 - thoracentesis 03/10/17with removal of 500ml from right hemithorax - ct head 03/19 neg for acute cva. -abx course complete with levaquin -cont po lasix/kcl..monitor bmp -wean oxygen -adjusted po afib rate control and on metoprolol/cardizem/amiodarone. eliquis added for cva prophylaxis. pt with deconditioning and will be sent to snf. Pt Condition on Discharge: Stable Discharge Disposition: Discharge to SNF Discharge Instructions DIET: Follow Instructions for: Heart Healthy Diet Speech Therapy-Diet Recommends: Pureed Activities you can perform: Regular-No Restrictions Follow up Referrals: PCP Follow-up - 2 Weeks New Medications: Amiodarone (Amiodarone) 200 Mg Tab 200 MG PO DAILY afib Days 30 Ref 3 TAB Apixaban (Eliquis) 2.5 Mg Tab 2.5 MG PO BID afib #60 Ref 3 TAB Diltiazem CD 24 HR (Cardizem CD 24 HR) 240 Mg Caper 240 MG PO DAILY afib #30 Ref 3 CAP Famotidine (Famotidine) 20 Mg Tab 10 MG PO BID gerd #60 TAB Furosemide (Furosemide) 20 Mg Tab 20 MG PO BID@09,18 swelling Days 30 TAB Ipratropium-Albuterol Neb (Duoneb) 0.5-2.5 Mg/3 Ml Neb 1 AMPULE INH Q6HR NEB pneumonia Days 14 ML Melatonin (Gnp Melatonin Maximum Str) 5 Mg Tab 5 MG PO HS insomnia #30 TAB Metoprolol Tartrate (Metoprolol Tartrate) 25 Mg Tab 75 MG PO Q8HR afib #90 Ref 3 TAB Potassium Chloride Microencaps (Potassium Chloride Microencaps) 20 Meq Tab 20 MEQ PO Q12HR supplement #60 TAB Sennosides-Docusate Sodium (Senna Plus 8.6-50 mg) 1 Tab Tab 1 TAB PO BID constipation #60 TAB Changed Medications: Hydrocodone-Acetaminophen ([place]) 5-325 mg Tab 1 TAB PO Q6HR PRN PAIN #15 Ref 0 TAB (Changed from: Q8HR) Continued Medications: Albuterol 18 GM Inh (Ventolin Hfa 18 GM Inh) 90 Mcg/Act Aer 2 PUFF INH Q6H PRN SHORTNESS OF BREATH #0 Ref 0 INHALER Atorvastatin (Lipitor) 10 Mg Tab Unknown Dose PO HS Cholesterol Management #0 Ref [address] (Duloxetine DR) 30 Mg Capdr 30 MG PO DAILY #30 Ref 0 CAP Fluticasone 12 GM Inh (Flovent Hfa 12 GM Inh) 220 Mcg/Act Inh 1 PUFF INH BID Use daily at the same time. Asthma Management #0 Ref 0 INHALER Isosorbide Mononitrate (Isosorbide Mononitrate) 20 Mg Tab 30 MG PO BID Take 2 doses 7 hours apart. Prevent Chest Pain #0 Ref 0 TAB Loratadine (Claritin) 10 Mg Cap 10 MG PO DAILY Allergy Management Ref 0 CAP Nitroglycerin SL (Nitroglycerin SL) 0.4 Mg Subl 0 SL DIRECTED ONE TABLET UNDER THE TONGUE NEEDED FOR CHEST PAIN, MAY REPEAT EVERY FIVE MINUTES FOR A TOTAL OF 3 DOSES OR CALL 911 IF NO RELIEF PRN CHEST PAIN #100 Ref 0 TAB.SL [place]-3 Fatty Acids (Fish Oil 1200 mg) 1 Cap Cap 1 TAB PO DAILY Pramipexole (Pramipexole) 0.125 Mg Tab 0.125 MG PO HS Parkinson Disease Mgmt #30 Ref 0 TAB (This prescription has been renewed) Discontinued Medications: Amlodipine (Amlodipine) 2.5 Mg Tab 2.5 MG PO DAILY Blood Pressure Management #0 Ref 0 TAB Baclofen (Baclofen) 10 Mg Tab 5 MG PO HS Muscle Spasm Ref 0 TAB Hydroxyzine HCl (Hydroxyzine HCl) 25 Mg Tab 25 MG PO TID Ref 0 TAB Meloxicam (Meloxicam) 15 Mg Tab 15 MG PO DAILY Arthritis Pain #0 Ref 0 TAB Metoprolol Tartrate (Metoprolol Tartrate) 50 Mg Tab 50 MG PO BID #0 Ref 0 TAB Pantoprazole (Protonix) 40 Mg Tab 40 MG PO BID Reflux #0 Ref 0 TAB ([domperidone]) 10 MG PO TID ([ketoconazole 1%]) 1 APPLIC NA BID PRN unknown Morgan Davidson MD Mar 21, 2017 09:46
[2017-03-21 12:00] VITALS: BP 127/64; PULSE 96; RESP 20; TEMP 97.8; O2SAT 95
== END 2017-03-21 12:31 | DRG 208 ==
LOC: NEPC 06:55 → NEDA 09:00 → HIME 19:05 → N04B 03-16 23:04
PROVIDERS: ADMIT Internal Medicine Critical Care Medicine; ATTEND Internal Medicine Critical Care Medicine
PROC: 0W993ZX Drainage of Right Pleural Cavity, Percutaneous Approach, Diagnostic (ICD-10-PCS; principal; 2017-03-10)
PROC: 5A1945Z Respiratory Ventilation, 24-96 Consecutive Hours (ICD-10-PCS; 2017-03-10)
PROC: 0T9B70Z Drainage of Bladder with Drainage Device, Via Natural or Artificial Opening (ICD-10-PCS; 2017-03-10)
PROC: 0BH17EZ Insertion of Endotracheal Airway into Trachea, Via Natural or Artificial Opening (ICD-10-PCS; 2017-03-10)
DX: J96.01 Acute respiratory failure with hypoxia (principal); I50.23 Acute on chronic systolic (congestive) heart failure; J18.9 Pneumonia, unspecified organism; I11.0 Hypertensive heart disease with heart failure; Z95.1 Presence of aortocoronary bypass graft; I48.0 Paroxysmal atrial fibrillation; E87.3 Alkalosis; J98.11 Atelectasis; E78.5 Hyperlipidemia, unspecified; I25.10 Atherosclerotic heart disease of native coronary artery without angina pectoris; K21.9 Gastro-esophageal reflux disease without esophagitis; M19.90 Unspecified osteoarthritis, unspecified site; F32.9 Major depressive disorder, single episode, unspecified; J45.909 Unspecified asthma, uncomplicated; E78.00 Pure hypercholesterolemia, unspecified; Z86.73 Personal history of transient ischemic attack (TIA), and cerebral infarction without residual deficits; Z85.3 Personal history of malignant neoplasm of breast; Z88.6 Allergy status to analgesic agent; Z88.1 Allergy status to other antibiotic agents; Z88.0 Allergy status to penicillin; Z88.2 Allergy status to sulfonamides; Z88.8 Allergy status to other drugs, medicaments and biological substances; R00.0 Tachycardia, unspecified; R73.9 Hyperglycemia, unspecified
CPT/HCPCS: 31500; 32555; 36600; 51702; 70450; 71010; 71020; 71250; 80048; 80053; 80202; 81001; 82550; 82805; 82945; 82948; 83605; 83615; 83735; 83880; 83986; 84100; 84132; 84157; 84443; 84484; 85025; 85027; 85610; 85730; 87015; 87040; 87070; 87102; 87116; 87205; 87206; 87449; 87641; 87804; 88112; 88305; 89051; 93005; 93306; 94002; 94003; 94150; 94640; 94664; 94667; 96365; 96374; 96375; C1729; J0282; J0330; J1120; J1160; J1644; J1650; J1940; J1956; J2930; J3010; J3260; J3370; J3475; J3480; J7030; J7050; J7060

== ENCOUNTER → 2017-05-01 | Outpatient (CLI) | payer MEDICARE ==
[~2017-05-01] MED LIST changes: -ALBU8I INH; +ALEN35TA24 PO; +ALPR.5 PO; +AMIO200T PO; +APIX2.5T PO; -ATOR80TA PO; -AZEL0.05; -BACL20; +CARD240C6 PO; +CLAR10CA3 PO; -CORT15T EX; -CYMB30CA PO; +DULO1CAP2 PO; +ERGO1CAP30 PO; +FAMO20TA2 PO; +FISH1200 PO; -FLON0.053; -FLOV220A INH; +FLUTI220I INH; +FURO20TA PO; +GABA100C4 PO; -GAS-80CH CHEW; -GENTGEL; +GNP5TAB6 PO; +IPRASOL INH; +ISOS20TA PO; -ISOS30; +LEXA10TA PO; +LIPI10TA PO; -METO25 PO; +METO25TA3 PO; -NITR0.4S SL; +NITR1SUB3 SL; +NORC5TAB PO; -NYST100010 TOP; +ONDA4TAB7 SL; -POLY119S PO; +POTA20TA5 PO; +PRAM0.12 PO; -PRAM1TAB; -PROT40TA PO; +SENN1TAB PO; -TAB-TAB PO; -TUMS500C PO; -TYLE500T PO; +VENTAER INH
--- NOTE | 2017-05-07 10:27 | RSPPFT ---
DATE OF PROCEDURE: 05/01/17 COMMENTS: Spirometry with FVC 0.8 predicted 2.2, FEV1 of 0.6 predicted 1.5, FEV1, FVC ratio at 74% predicted 81%. Lung volumes and DLCO could not be measured. 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 In regard to the lung volumes and DLCO not being measured, further interpretation could not be made.
== END ==
LOC: HRSP 13:24
PROVIDERS: ATTEND Internal Medicine Pulmonary Disease
DX: J44.9 Chronic obstructive pulmonary disease, unspecified (principal)
CPT/HCPCS: 94010; 94620

== ENCOUNTER 2017-05-06 11:37 | Inpatient (IN) | payer MEDICARE ==
[~2017-05-06] VITALS: Ht 157.5 cm; Wt 68.5 kg
[2017-05-06] VITALS (13 sets, daily range): BP systolic 113–141; BP diastolic 69–87; PULSE 100–140; RESP 21–40; TEMP 97.4–99; O2SAT 94–100
[~2017-05-06 11:37] MED LIST changes: -ALEN35TA24 PO; -ALPR.5 PO; -ERGO1CAP30 PO; -GABA100C4 PO; -LEXA10TA PO; -ONDA4TAB7 SL
[2017-05-06] MEDS ORDERED: SODIUM CHLORIDE 0.9% FLUSH 10 ML FLUSH IVF PRN (11:45)
[2017-05-06] MEDS ORDERED: RESP: ALBUTEROL 2.5 MG/IPRATROPIUM 0.5 MG NEB (SCH) ONE (11:52)
[2017-05-06] MEDS ORDERED: RESP: ALBUTEROL 2.5 MG/IPRATROPIUM 0.5 MG NEB (SCH) NEB ONE (12:15)
[2017-05-06] MEDS ORDERED: CALCIUM GLUCONATE 10% 1 GM/10 ML VIAL IV PUSH ONE (12:15)
[2017-05-06] MEDS ORDERED: methylPREDNISolone SOD SUCC 125 MG/2 ML VIAL IV PUSH ONE (12:15)
--- NOTE | 2017-05-06 12:18 | RADRPT ---
EXAM DATE/TIME: 05/06/2017 11:57 [facility] COMPARISON: CHEST SINGLE AP, March 14, 2017, 4:26. INDICATIONS : Short of breath. MEDICAL HISTORY : Recent Pneumonia.Cardiovascular disease. Carcinoma, breast. Hypertension. SURGICAL HISTORY : None. ENCOUNTER: Initial ACUITY: 1 day PAIN SCORE: Non-responsive. LOCATION: Bilateral chest FINDINGS: Portable AP view of the chest demonstrates a normal-sized cardiac silhouette with calcification of ao rta. Lungs are underinflated. There is linear opacity left lung base and perihilar and lower lung zon e interstitial opacities. No pleural effusion or pneumothorax is appreciated. Bones and soft tissues demonstrate no acute finding. CONCLUSION: Bilateral perihilar and lower lung zone interstitial opacities could represent pulmonary edema in the appropriate clinical setting. There is also likely atelectasis at the lung bases. Osman Ponce MD on May 06, 2017 at 12:16 Board Certified Radiologist. This report was verified electronically.
--- NOTE | 2017-05-06 12:24 | PD ---
HPI Chief Complaint: Respiratory Distress Time Seen by Provider: 11:43 Travel History International Travel<30 days: No Contact w/Intl Traveler<30days: No Traveled to known affect area: No History of Present Illness HPI Patient is an 82-year-old female presents emergency department respiratory distress. Per EMS the patient was recently discharged from the hospital for a history of pneumonia. According to EMS she has no history of CHF for chronic lung disease. They report initial saturation of 77 on room air with wheezes. She was given duo nebs in route. She was also found to be in A. fib RVR with heart rate in the 160s, she received Cardizem 20 g IV prior to arrival and her heart rate was more controlled to 100-130. Patient on arrival is certainly very short of breath and limiting history further. Review the records shows the patient was admitted in March was started on multiple antibiotic regimen after intubated for hypoxic respiratory failure. PFSH Past Medical History Hx Anticoagulant Therapy: Yes Arthritis: Yes Autoimmune Disease: No Blood Disorders: No Depression: Yes Heart Rhythm Problems: Yes Cancer: Yes (hx of left breast cancer) Cardiac Catheterization: Yes Cardiovascular Problems: Yes High Cholesterol: Yes Chest Pain: Yes Cerebrovascular Accident: Yes Diabetes: No Endocrine: No Gastrointestinal Disorders: Yes (ibs and reflux with symptoms of diaherra) GERD: Yes Glaucoma: No Genitourinary: Yes (pt states she has a interstim) Headaches: Yes Hepatitis: No Hiatal Hernia: No Hypertension: Yes Immune Disorder: No Medical other: Yes (ARTHRITIS, STROKE) Musculoskeletal: Yes (pt states she does have back problems and arthritis) Neurologic: No Psychiatric: No Reproductive: No Respiratory: Yes Integumentary: No Thyroid Disease: No Tetanus Vaccination: < 5 Years PNEUMOCCOCAL Vaccine (Year): 1 Past Surgical History Abdominal Surgery: Yes (lap benito) Body Medical Devices: interstim, WIRES IN CHEST Cardiac Surgery: Yes (triple by-pass) Coronary Artery Bypass Graft: Yes Ear Surgery: No Endocrine Surgery: No Eye Surgery: Yes (romario lens implants) Genitourinary Surgery: No Gynecologic Surgery: Yes (D&C) Neurologic Surgery: Yes (CERVICAL (NECK) SX, LUMBAR FUSION) Oral Surgery: Yes (TONSILLECTOMY) Pacemaker: No Thoracic Surgery: Yes (left breast lumpectomy) Other Surgery: Yes (CATARACTS) Social History Alcohol Use: No Tobacco Use: No Substance Use: No Allergies-Medications (Allergen,Severity, Reaction): Coded Allergies: Amlodipine (Unverified Allergy, Severe, swellings in the legs, 05/06/17) Azithromycin (Verified Allergy, Severe, 05/06/17) unknown Darvon (Verified Allergy, Severe, LIGHT HEADED, 05/06/17) Naproxen (Verified Allergy, Severe, DIZZINESS, 05/06/17) Penicillin (Verified Allergy, Severe, Rash, 05/06/17) Protonix (Verified Allergy, Severe, 05/06/17) pt states its ok to take Sulfa (Verified Allergy, Severe, Hives, 05/06/17) CONFIRM? Zetia (Unverified Allergy, Severe, RASH, 05/06/17) CRESTOR (Unverified Allergy, Unknown, legs aching, 05/06/17) Lipitor (Verified Adverse Reaction, Severe, MUSCLE ACHES, JOINT SORENESS, 05/06/17) pt states its ok to take Zocor (Verified Adverse Reaction, Severe, MUSCLE ACHES, JOINT SORENESS, 05/06/17) Uncoded Allergies: LOTEMAX (Allergy, Severe, eye lids get sore, 03/25/14) STATINS (Adverse Reaction, Intermediate, MUSCLE CRAMPS LEGS AND SORENESS IN JOINTS, 09/13/10) Reported Meds & Prescriptions Reported Meds & Active Scripts Active Reported Xanax (Alprazolam) 0.5 Mg Tab 0.5 Mg PO DAILY PRN Lexapro (Escitalopram Oxalate) 10 Mg Tab 10 Mg PO DAILY Ondansetron Odt 4 Mg Tab 4-8 Mg SL BID PRN Ergocalciferol 50,000 Unit Cap 50,000 Units PO WEEKLY Alendronate (Alendronate Sodium) 35 Mg Tab 35 Mg PO WEEKLY Gabapentin 100 Mg Cap 200 Mg PO BID Review of Systems ROS Limitations: Clinical Condition Physical Exam Narrative GENERAL: Well-developed, overweight, pale, tachypneic with accessory muscle use. SKIN: Focused skin assessment warm/dry. HEAD: Atraumatic. Normocephalic. EYES: Pupils equal and round. No scleral icterus. No injection or drainage. ENT: No nasal bleeding or discharge. Mucous membranes pink and moist. NECK: Trachea midline. No JVD. CARDIOVASCULAR: Regular rate and rhythm. No murmur appreciated. RESPIRATORY: No accessory muscle use. Decreased breath sounds throughout, rales in bilateral bases, scattered wheezing as well. Breath sounds equal bilaterally. GASTROINTESTINAL: Abdomen soft, non-tender, nondistended. Hepatic and splenic margins not palpable. MUSCULOSKELETAL: No obvious deformities. No clubbing. No cyanosis. No edema. NEUROLOGICAL: Alert and awake, follows commands in all 4 extremities. PSYCHIATRIC: Unable to assess Data Data Last Documented VS Vital Signs Date Time Temp Pulse Resp B/P Pulse Ox O2 Delivery O2 Flow Rate FiO2 05/06/17 12:33 102 29 BiPAP 05/06/17 12:19 113/69 05/06/17 11:51 65 05/06/17 11:50 100 05/06/17 11:43 97.6 Orders Chest, Single Ap (05/06/17 ) Electrocardiogram (05/06/17 11:43) Arterial Blood Gas (Abg) (05/06/17 11:43) Complete Blood Count With Diff (05/06/17 11:43) Comprehensive Metabolic Panel (05/06/17 11:43) Ecg Monitoring (05/06/17 11:43) Iv Access Insert/Monitor (05/06/17 11:43) Oximetry (05/06/17 11:43) Oxygen Administration (05/06/17 11:43) Sodium Chloride 0.9% Flush (Ns Flush) (05/06/17 11:45) Electrocardiogram (05/06/17 11:43) B-Type Natriuretic Peptide (05/06/17 11:43) Ckmb (Isoenzyme) Profile (05/06/17 11:43) Magnesium (Mg) (05/06/17 11:43) Prothrombin Time / Inr (Pt) (05/06/17 11:43) Act Partial Throm Time (Ptt) (05/06/17 11:43) Troponin I (05/06/17 11:43) Albuterol-Ipratropium Neb (Duoneb Neb) (05/06/17 11:52) Blood Culture (05/06/17 12:07) Lactic Acid Sepsis Protocol (05/06/17 12:07) Albuterol-Ipratropium Neb (Duoneb Neb) (05/06/17 12:15) Methylprednisolone So Succ Inj (Solumedr (05/06/17 12:15) Calcium Gluconate Inj (Calcium Gluconate (05/06/17 12:15) Vital Signs (Adult) Q15MX4,Q4H (05/06/17 12:07) Truck Hopper / Telemetry VERITO.Q8H (05/06/17 12:07) Cardiac Rhythm VERITO.Q8H (05/06/17 12:07) Notify Dr: Other (05/06/17 12:07) Diltiazem Inj (Cardizem Inj) (05/06/17 12:15) Diltiazem Inj (Cardizem Inj) (05/06/17 12:30) Furosemide Inj (Lasix Inj) (05/06/17 13:00) Ct Pulmonary Angiogram (05/06/17 ) Admit Order (Ed Use Only) (05/06/17 ) Aztreonam Inj (Azactam Inj) (05/06/17 13:45) Labs Laboratory Tests Test 05/06/17 05/06/17 05/06/17 12:00 12:23 12:45 White Blood Count 10.0 TH/MM3 Red Blood Count 4.21 MIL/MM3 Hemoglobin 12.5 GM/DL Hematocrit 36.5 % Mean Corpuscular Volume 86.6 FL Mean Corpuscular Hemoglobin 29.6 PG Mean Corpuscular Hemoglobin 34.2 % Concent Red Cell Distribution Width 18.0 % Platelet Count 317 TH/MM3 Mean Platelet Volume 8.7 FL Neutrophils (%) (Auto) 68.6 % Lymphocytes (%) (Auto) 23.0 % Monocytes (%) (Auto) 7.4 % Eosinophils (%) (Auto) 0.4 % Basophils (%) (Auto) 0.6 % Neutrophils # (Auto) 6.9 TH/MM3 Lymphocytes # (Auto) 2.3 TH/MM3 Monocytes # (Auto) 0.7 TH/MM3 Eosinophils # (Auto) 0.0 TH/MM3 Basophils # (Auto) 0.1 TH/MM3 CBC Comment DIFF FINAL Differential Comment Prothrombin Time 14.4 SEC Prothromb Time International 1.3 RATIO Ratio Activated Partial 23.8 SEC Thromboplast Time Sodium Level 141 MEQ/L Potassium Level 4.4 MEQ/L Chloride Level 104 MEQ/L Carbon Dioxide Level 25.0 MEQ/L Anion Gap 12 MEQ/L Blood Urea Nitrogen 16 MG/DL Creatinine 1.08 MG/DL Estimat Glomerular Filtration 48 ML/MIN Rate Random Glucose 155 MG/DL Calcium Level 9.1 MG/DL Magnesium Level 2.6 MG/DL Total Bilirubin 0.8 MG/DL Aspartate Amino Transf 103 U/L (AST/SGOT) Alanine Aminotransferase 63 U/L (ALT/SGPT) Alkaline Phosphatase 197 U/L Total Creatine Kinase 97 U/L Troponin I 0.02 NG/ML B-Type Natriuretic Peptide 262 PG/ML Total Protein 8.3 GM/DL Albumin 3.4 GM/DL Blood Gas Puncture Site LT RADIAL Blood Gas Patient Temperature 98.6 Blood Gas HCO3 23 mmol/L Blood Gas Base Excess -1.8 mmol/L Blood Gas Oxygen Saturation 95 % Arterial Blood pH 7.32 Arterial Blood Partial 47 mmHg Pressure CO2 Arterial Blood Partial 106 mmHG Pressure O2 Arterial Blood Oxygen Content 15.5 Vol % Arterial Blood 1.2 % Carboxyhemoglobin Arterial Blood Methemoglobin 0.5 % Blood Gas Hemoglobin 11.4 G/DL Oxygen Delivery Device BIPAP Blood Gas Ventilator Setting IPAP 12/EPAP 5 Blood Gas Inspired Oxygen 65 % Lactic Acid Level 7.0 mmol/L MDM Medical Decision Making Medical Screen Exam Complete: Yes Emergency Medical Condition: Yes Interpretation(s) EKG shows A. fib with rapid ventricular response with an overall rate of 137. Intervals otherwise within normal limits. No concerning ST segment changes. Find her details limited by motion artifact baseline artifact. This an abnormal EKG. Differential Diagnosis Hypoxic respiratory failure, hypercapnic respiratory failure, CHF, asthma, COPD , pneumonia, PE, A. fib RVR. Narrative Course Patient roomed in the emergency department, very difficult to get vital signs on , the patient is pale. She was placed on a BiPAP machine and her color started returning gradually. Her ABG did show arteries, on 65% FiO2 her PaO2 is only 106. She is mild respiratory acidosis with pH is 7.32, PCO2 of 46. Difficult to obtain noninvasive vital signs on the patient because of her tremulous nature , ultimately her blood pressure was obtained through noninvasive means. She was diuresed gently. She was given calcium as well as diltiazem by bolus and then drip. Overall she is improving in the emergency department, after calming her tremulous nature has decreased and we are obtaining sats in the 95 to 100 range. Patient's chest x-ray does show some mild pulmonary infiltrates probably consistent with early edema. Again she was diuresis gently given her blood pressure 120s systolic. Patient's lactic acid returned at 7, I think this is probably from respiratory effort. Discussed with Dr. Doty and pneumonia cannot be completely excluded at this time recommended CAT scan. She would then indeed meet SIRS criteria however she does have edema in her legs and her hands and I think that aggressive fluid hydration is actually contraindicated time. We'll monitor the lactic acid after she is been on BiPAP for some time. At Dr. Doty's recommendation have started Azactam, CAT scan of the chest is been ordered. Overall again the patient is improving significantly in the emergency department. [place] [facility] [place]. Critical Care Narrative Aggregate critical care time was 35 minutes. Time to perform other separately billable procedures was not included in the critical care time. My time did not include minutes spent treating any other patients simultaneously or on activities that did not directly contribute to the patient's treatment. The services I provided to this patient were to treat and/or prevent clinically significant deterioration that could result in: , disability, organ failure I provided critical care services requiring my management, as noted below: Chart data review, documentation time, medication orders and management, vital sign assessments/reviewing monitor data, ordering and reviewing lab tests, ordering and interpreting/reviewing x-rays and diagnostic studies, care of the patient and discussion of the patient with the admitting physicians. Diagnosis Primary Impression: Respiratory failure Additional Impressions: Afib CAD (coronary artery disease) Pneumonia Systolic CHF Admitting Information Admitting Physician Requests: Admit Condition: Fair Fam Rocha MD May 06, 2017 12:24
[2017-05-06 12:28] LABS: AUTOMATED NEUTROPHIL # 6.9 TH/MM3 (1.8-7.7); BASOPHIL # 0.1 TH/MM3 (0-0.2); BASOPHIL % 0.6 % (0.0-2.0); EOSINOPHIL % 0.4 % (0.0-4.0); HEMATOCRIT 36.5 % (35.0-46.0); HEMO FLAGS DIFF FINAL; LYMPHOCYTE # 2.3 TH/MM3 (1.0-4.8); MEAN CELL VOLUME 86.6 FL (80.0-100.0); MEAN CORPUSCULAR HEMOGLOBIN 29.6 PG (27.0-34.0); MEAN CORPUSCULAR HGB CONC 34.2 % (32.0-36.0); MONO % 7.4 % (0.0-8.0); NEUT % 68.6 % (16.0-70.0); PLATELET COUNT 317 TH/MM3 (150-450); RED BLOOD COUNT 4.21 MIL/MM3 (4.00-5.30)
[2017-05-06] MEDS: DILTIAZEM HCL 25 MG/5 ML VIAL IV PUSH PRN (12:31)
[2017-05-06 12:41] LABS: BLOOD GAS BASE EXCESS -1.8 mmol/L (-2-2); BLOOD GAS CARBOXYHEMOGLOBIN 1.2 % (0-4); BLOOD GAS HCO3 23 mmol/L (22-26); BLOOD GAS METHEMOGLOBIN 0.5 % (0-2); BLOOD GAS O2 HGB SATURATION 95 % (90-100); BLOOD GAS OXYGEN CONTENT 15.5 Vol % (12.0-20.0); BLOOD GAS PCO2 47 mmHg (38-42); BLOOD GAS PO2 106 mmHG (61-120); BLOOD GAS TOTAL HGB 11.4 G/DL (12.0-16.0); CRITICAL VALUE NO; TEMP CORR TO 98.6
[2017-05-06 12:42] LABS: DRAW SITE LT RADIAL; FIO2 65 %; OXYGEN DEVICE BIPAP; VENT SETTINGS IPAP 12/EPAP 5
[2017-05-06 12:43] LABS: NUMBER OF ARTERIAL PUNCTURES 2
[2017-05-06 12:43] LABS: APTT (PATIENT) 23.8 SEC (24.3-30.1); INTERNATIONAL NORMALIZED RATIO 1.3 RATIO; PROTHROMBIN TIME - PATIENT 14.4 SEC (9.8-11.6)
[2017-05-06 12:44] LABS: STAT YES; ULNAR PULSE PRESENT
[2017-05-06 12:55] LABS: ALKALINE PHOSPHATASE 197 U/L (45-117); ALT (GPT) 63 U/L (10-53); ANION GAP 12 MEQ/L (5-15); AST (GOT) 103 U/L (15-37); BLOOD UREA NITROGEN 16 MG/DL (7-18); CHLORIDE 104 MEQ/L (98-107); GLOMERULAR FILTRATION RATE 48 ML/MIN (>89); MAGNESIUM 2.6 MG/DL (1.5-2.5); POTASSIUM 4.4 MEQ/L (3.5-5.1); SODIUM (NA) 141 MEQ/L (136-145); TOTAL BILIRUBIN ADULT 0.8 MG/DL (0.2-1.0)
[2017-05-06 12:56] LABS: CREATINE KINASE 97 U/L (26-192)
[2017-05-06] MEDS ORDERED: GABA100C4 PO (13:00)
[2017-05-06] MEDS ORDERED: ERGO1CAP30 PO (13:00)
[2017-05-06] MEDS ORDERED: ALEN35TA24 PO (13:00)
[2017-05-06] MEDS ORDERED: ALPR.5 PO (13:00)
[2017-05-06] MEDS ORDERED: LEXA10TA PO (13:00)
[2017-05-06] MEDS ORDERED: FUROSEMIDE 20 MG/2 ML VIAL IV PUSH ONE (13:00)
[2017-05-06] MEDS ORDERED: ONDA4TAB7 SL (13:00)
[2017-05-06] MEDS ORDERED: AZTREONAM INJ 1,000 MG in SODIUM CHLORIDE 0.9% INJ 100 ML IV ONE (13:45)
[2017-05-06] MEDS ORDERED: MISCELLANEOUS NURSING INFORMATION XX SCH (14:00)
[2017-05-06] MEDS ORDERED: RESP: ALBUTEROL 2.5 MG/IPRATROPIUM 0.5 MG NEB (PRN) INH (14:00)
[2017-05-06] MEDS ORDERED: CHLORHEXIDINE GLUCONATE 2 % 1 PACK (2 CLOTHS) TOP PRN (14:00)
[2017-05-06] MEDS: DILTIAZEM INJ 125 MG in SODIUM CHLORIDE 0.9% INJ 100 ML IV SCH (14:21)
[2017-05-06 14:57] LABS: LACTIC ACID GHOST NOT REPORTABLE
[2017-05-06] MEDS: DOCUSATE SODIUM 50 MG/SENNA 8.6 MG TAB PO SCH ×2 (15:00→20:22)
[2017-05-06] MEDS ORDERED: SENNOSIDES 8.6 MG TAB PO PRN (15:00)
[2017-05-06] MEDS ORDERED: BISACODYL 10 MG SUPP RECTAL PRN (15:00)
[2017-05-06] MEDS ORDERED: MAGNESIUM HYDROXIDE SUSP 30 ML CUP PO PRN (15:00)
[2017-05-06] MEDS ORDERED: LACTULOSE SYRUP 20 GM/30 ML CUP PO PRN (15:00)
[2017-05-06] MEDS: RESP: ALBUTEROL 2.5 MG/IPRATROPIUM 0.5 MG NEB (SCH) INH ×3 (15:08→23:08)
[2017-05-06] MEDS: ENOXAPARIN SODIUM 40 MG/0.4 ML SYRINGE SQ SCH (15:33)
[2017-05-06] MEDS ORDERED: GLUCAGON 1 MG/ML VIAL OTHER PRN (16:00)
[2017-05-06] MEDS ORDERED: MAGNESIUM OXIDE 400 MG TAB PO PRN (16:00)
[2017-05-06] MEDS ORDERED: POTASSIUM CHLOR 20 MEQ PREMIX 100 ML IV PRN (16:00)
[2017-05-06] MEDS ORDERED: MAGNESIUM SULFATE INJ 2 GM in SODIUM CHLORIDE 0.9% INJ 96 ML IV PRN (16:00)
[2017-05-06] MEDS ORDERED: POTASSIUM PHOSPHATE MONOBASIC 500 MG TAB PO/TUBE PRN (16:00)
[2017-05-06] MEDS ORDERED: POTASSIUM PHOSPHATE INJ 30 MMOL in SODIUM CHLOR 0.9% 250 ML INJ 250 ML IV PRN (16:00)
[2017-05-06] MEDS ORDERED: MAGNESIUM SULFATE INJ 4 GM in SODIUM CHLORIDE 0.9% INJ 92 ML IV PRN (16:00)
[2017-05-06] MEDS ORDERED: POTASSIUM CHLORIDE 25 MEQ EFFERVESCENT TAB PO PRN (16:00)
[2017-05-06] MEDS ORDERED: SODIUM PHOSPHATE INJ 30 MMOL in SODIUM CHLOR 0.9% 250 ML INJ 240 ML IV PRN (16:00)
[2017-05-06] MEDS ORDERED: POTASSIUM PHOSPHATE MONOBASIC 500 MG TAB PO PRN (16:00)
[2017-05-06] MEDS ORDERED: POTASSIUM CHLOR 40 MEQ PREMIX 100 ML IV PRN ×2 (16:00)
[2017-05-06] MEDS ORDERED: DEXTROSE 50% IN WATER 50 ML VIAL(D50) IV PRN (16:00)
[2017-05-06] MEDS ORDERED: VANCOMYCIN INJ 1,000 MG in SODIUM CHLOR 0.9% 250 ML INJ 250 ML IV ONE (17:00)
--- NOTE | 2017-05-06 17:24 | MH ---
cc: RAEANN MOODY M.D. DATE OF ADMISSION: 05/06/2017 DATE OF : 1935 HISTORY OF PRESENT ILLNESS: The patient is a 82 year-old female with multiple medical comorbidities which include a coronary artery disease with previous coronary artery bypass graft x3, hypertension, gastroesophageal reflux disease, cerebrovascular accident, hyperlipidemia and history of breast cancer. HISTORY OF PRESENT ILLNESS: She presented to [facility] emergency department with progressive worsening of shortness of breath for the past several days according to her . The patient was recently discharged from the hospital after she was admitted for a pneumonia. She had a initial saturation of 77 on 77% on room air with some wheezing. The patient also was in atrial fibrillation with rapid ventricular response at a rate of 160 beats per minute and she was given Cardizem and 28 mg IV push prior to arrival. The patient was placed on a BiPap at 12/05 with 65% FIO2 and ABG showed mild respiratory acidosis with a pH of 7.32, CO2 47, pAO2 106, bicarb 23, saturation of 95%. Her laboratory data significant for lactic acidemia with a lactic acid level of 7.0 and elevated liver enzymes with AST 103, ALT 63. Her B-type natriuretic peptide measured at 262. In the ER she was given bronchodilator treatment, Solu-Medrol 125 mg IV push, calcium gluconate and <<2:51>> . A chest x-ray In the emergency room showed bilateral perihilar and lower lung zone interstitial opacities and atelectasis at the lung bases. She is scheduled to undergo CT pulmonary angiogram to rule out pulmonary embolus. The patient reports feeling nauseous however, she denies any abdominal pain in addition she denies any chest pain, however she reports edema of lower extremities. PAST MEDICAL HISTORY: 1. Coronary artery disease 2. Hypertension. 3. Gastroesophageal reflux disease. 4. Hypertension 5. Arthritis. 6. Cerebrovascular accident. 7. Hyperlipidemia. 8. History of breast cancer. PAST SURGICAL HISTORY 1. Previous left breast lumpectomy 2. previous cholecystectomy. 3. Previous coronary artery bypass graft x3 4. previous tonsillectomy 5. cataract surgery. 6. Previous bilateral lens implants. ALLERGIES Multiple which include 1. ZOCOR 2. ZETIA 3. SULFA 4. STATINS 5. PROTONIX 6. PENICILLIN 7. AZITHROMYCIN 8. AMLODIPINE 9. DARVON 10. LIPITOR SOCIAL HISTORY Nonsmoker, nondrinker. FAMILY HISTORY Noncontributory. REVIEW OF SYSTEMS As per HPI, review of systems limited as patient is poor historian. PHYSICAL EXAMINATION: IN GENERAL: 82-year-old female on a BiPap in mild respiratory distress. VITAL SIGNS: Temperature 99.0 orally, pulse of 102-112, respiratory 25, blood pressure 134/87, saturation 100% on a BiPap 12/5 with FIO2 60%. HEAD, EYES, EARS, NOSE, AND THROAT: Atraumatic, normocephalic Pupils equal, round, reactive to light and accommodation, extraocular muscles intact. Conjunctiva pink. Nonicteric sclerae. Oral mucosa within normal. NECK: Supple. No JVD, adenopathy or thyromegaly. Trachea midline. CARDIOVASCULAR SYSTEM: Tachycardiac normal S1-S2. No murmurs, rubs or gallops noted. PULMONARY EXAMINATION: Bilateral equal entry with coarse breath sounds and few scattered wheezing. ABDOMEN: soft, obese, nontender, no distension. Positive bowel sounds. EXTREMITIES: No cyanosis, clubbing, +1 edema. NEUROLOGIC: No focal sensory deficit. LABORATORY DATA Sodium 41,004.4, chloride 104, CO2 25, BUN 16, creatinine 1.08, glucose 155, lactic acid seven, total bilirubin 2.8, AST 103, ALT 63, alk phos 197, BNP 262, WBC 10, hemoglobin and 12.5, hematocrit 36, platelet count of 317, INR 1.3, PT 14.4, PTT 23.8. ABG showed a pH of 7.32, CO2 47th pAO2 106, bicarb 23, sats 95%. RADIOGRAPHY Chest x-ray Showed bilateral perihilar and lower lung zone interstitial opacities and atelectasis at the lung bases. Electrocardiogram showed atrial fibrillation and rapid ventricular response with a rate of [address]-T T-wave changes. IMPRESSION 1. Acute hypoxemic and hypercapnic respiratory failure. 2. Atrial fibrillation with rapid ventricular response. 3. Bilateral interstitial opacities, differential diagnosis fluid overload versus infectious process. 4. Lactic acidemia. 5. Elevated liver enzymes. 6. History of CAD / coronary artery bypass graft 7. Hypertension. 8. History of cerebrovascular accident. RECOMMENDATIONS 1. The patient is being admitted to ICU for close observation. Monitor neuro status closely and avoid any sedatives. 2. Continue with oxygen and maintain sats above 92%. 3. Bronchodilators in the form of DuoNeb q. 4+ q. two and three p.r.n. for shortness of breath. 4. Continue with IV steroids 5. Solu-Medrol 60 mg IV q. eight. 6. Noninvasive positive pressure ventilation p.r.n. for respiratory distress. If there is any worsening in respiratory status or clinical condition we will proceed with intubation and mechanical ventilation. 7. Monitor heart rate and blood pressure closely and maintain MAP greater than 65 mmHg. 8. Serial lactic acid monitoring. 9. The patient scheduled to undergo CT angiogram of the chest to rule out pulmonary embolus. 10. Echocardiogram from March showed an ejection fraction of 40-45%. Monitor cardiac enzymes with troponins and we will check a baseline TSH level. 11. She was given Cardizem 20 mg IV push for atrial fibrillation rapid ventricular response prior to arrival. We will continue with Cardizem 60 mg q. six for rate control. 12. Monitor renal function Is and Os and electrolyte replacement as needed. 13. Keep n.p.o. for now and place on Protonix 40 mg IV daily. Monitor LFTs and will obtain ultrasound of the liver. 14. Continue with broad-spectrum antibiotics with a history Azeotam in addition we will give one dose of vancomycin. 15. She is allergic to multiple antibiotics. 16. Follow up on blood cultures 17. In addition we will obtain a sputum culture with gram stain. Check strep pneumonia and Legionella urinary antigen. 18. Monitor CBC 19. Place on sliding scale insulin with Accu-Chek q. 4-hour for glycemic control as the patient is on IV steroids in addition we will obtain a baseline TSH level. 20. GI prophylaxis with Protonix 40 mg daily and DVT prophylaxis with SCDs and Lovenox 40 mg subcu daily. 21. Critical care time 35 minutes. 22. Further recommendations will be based on hospital course. MD GEETA Gonsalez/adarsh /4:00 PM /4:54 PM
[2017-05-06] MEDS: methylPREDNISolone SOD SUCC 125 MG/2 ML VIAL IV SCH (18:25)
[2017-05-06] MEDS: DILTIAZEM HCL 60 MG TAB PO SCH ×2 (18:26→23:40)
--- NOTE | 2017-05-06 18:56 | RADRPT ---
EXAM DATE/TIME: 05/06/2017 17:50 [facility] COMPARISON: No previous studies available for comparison. INDICATIONS : Increased lab values. MEDICAL HISTORY : Hypercholesterolemia. CVA. Headaches. Anticoagulant therapy. Hypertension. Dyspnea. IBS. GERD. Ar thritis. Left breast cancer. Stroke. SURGICAL HISTORY : Tonsillectomy. Cholecystectomy. Bilateral lens implants. Cervical neck fusion. CAGB. Cardiac cathet erization. ENCOUNTER: Initial ACUITY: 1 day PAIN SCORE: 6/10 LOCATION: Abdomen. MEASUREMENTS: LIVER: 12.8 cm length COMMON DUCT: 3 mm RIGHT KIDNEY: 9.9 x 5.3 x 5.0 cm SPLEEN: 7.3 cm length FINDINGS: There is a small right-sided pleural effusion. LIVER: Normal echotexture without focal lesion or ductal dilatation. Hepatopedal flow system the portal vei n.. COMMON DUCT: No intraluminal mass or stone visualized. GALLBLADDER: Cholecystectomy PANCREAS: Not well seen. RIGHT KIDNEY: No hydronephrosis, stone or mass. Cyst in the upper pole containing a thin central septum measures 1 .9 x 1.9 x 7.7 cm. SPLEEN: No focal lesion. CONCLUSION: 1. No biliary ductal dilatation. 2. Small right pleural effusion. 3. Septated cyst upper pole right kidney. August Small MD on May 06, 2017 at 18:48 Board Certified Radiologist. This report was verified electronically.
[2017-05-06 19:19] LABS: BLOOD, URINE NEG (NEG); COMMENT (UR) CATH-CULT NOT IND; CULTURE IF INDICATED CATH CULTURE NOT IND; GLUCOSE,URINE NEG (NEG); HYALINE CAST, URINE 40 /lpf (RARE); KETONE, URINE NEG (NEG); MUCUS URINE FEW /lpf (OCC); NITRITE,URINE NEG (NEG); PH, URINE 5.5 (5.0-8.5); SQUAMOUS EPITHELIAL CELL URINE <1 /hpf (0-5); URINE COLOR YELLOW (YELLW/STRAW)
[2017-05-06] MEDS: INSULIN NovoLIN REGULAR SUPPLEMENTAL SCALE SQ SCH ×2 (19:25→23:40)
[2017-05-06] MEDS ORDERED: IOHEXOL 350 MG/ML 10 ML VIAL (for RAD DIAG) IV ONE (19:45)
--- NOTE | 2017-05-06 20:22 | RADRPT ---
EXAM DATE/TIME: 05/06/2017 19:32 [facility] COMPARISON: No previous studies available for comparison. INDICATIONS : Difficulty breathing, evaluate for pulmonary emboli. IV CONTRAST: 70 cc Omnipaque 350 (iohexol) IV RADIATION DOSE: 23.16 CTDIvol (mGy) MEDICAL HISTORY : Cardiovascular disease. Carcinoma, breast. SURGICAL HISTORY : CABG Cholecystectomy. ENCOUNTER: Initial ACUITY: 1 day PAIN SCALE: 5/10 LOCATION: chest TECHNIQUE: Volumetric scanning of the chest was performed using a pulmonary embolism protocol MIP images were re constructed. Using automated exposure control and adjustment of the mA and/or kV according to patien t size, radiation dose was kept as low as reasonably achievable to obtain optimal diagnostic quality images. DICOM format image data is available electronically for review and comparison. Follow-up recommendations for incidentally detected pulmonary nodules are based at a minimum on nodul e size and patient risk factors according to Fleischner Society Guidelines. FINDINGS: PULMONARY ARTERIES: No filling defects are seen in the pulmonary arteries through the segmental level. LUNGS: Patchy areas of consolidation involving the upper and midlungs and collapse of the left lower lobe. PLEURAE: Large bilateral pleural effusions measuring up to 5 cm in thickness. MEDIASTINUM: AP window node measures 1.5 cm. No evidence of hilar adenopathy CONCLUSION: 1. The study is negative for pulmonary embolism. 2. Large bilateral pleural effusions, collapse of the left lower lobe, and patchy infiltrates through out both lungs. August Small MD on May 06, 2017 at 20:17 Board Certified Radiologist. This report was verified electronically.
[2017-05-06] MEDS: AZTREONAM INJ 1,000 MG in SODIUM CHLORIDE 0.9% INJ 100 ML IV SCH (20:33)
[2017-05-07] VITALS (13 sets, daily range): BP systolic 107–132; BP diastolic 53–86; PULSE 90–122; RESP 19–37; TEMP 97.2–98.8; O2SAT 95–100
[2017-05-07] MEDS: methylPREDNISolone SOD SUCC 125 MG/2 ML VIAL IV SCH ×3 (01:34→17:32)
[2017-05-07] MEDS: CHLORHEXIDINE GLUCONATE 2 % 1 PACK (2 CLOTHS) TOP SCH (02:02)
[2017-05-07] MEDS: RESP: ALBUTEROL 2.5 MG/IPRATROPIUM 0.5 MG NEB (SCH) INH ×5 (02:55→20:24)
[2017-05-07] MEDS: DILTIAZEM HCL 60 MG TAB PO SCH ×3 (04:30→17:32)
[2017-05-07] MEDS: AZTREONAM INJ 1,000 MG in SODIUM CHLORIDE 0.9% INJ 100 ML IV SCH ×3 (04:30→21:28)
[2017-05-07] MEDS: INSULIN NovoLIN REGULAR SUPPLEMENTAL SCALE SQ SCH ×3 (06:00→17:32)
[2017-05-07 06:33] LABS: AUTOMATED NEUTROPHIL # 7.4 TH/MM3 (1.8-7.7); BASOPHIL % 0.1 % (0.0-2.0); HEMATOCRIT 32.7 % (35.0-46.0); HEMO FLAGS DIFF FINAL; LYMPH % 10.2 % (9.0-44.0); LYMPHOCYTE # 0.9 TH/MM3 (1.0-4.8); MEAN CELL VOLUME 87.6 FL (80.0-100.0); MEAN CORPUSCULAR HEMOGLOBIN 27.7 PG (27.0-34.0); MEAN CORPUSCULAR HGB CONC 31.6 % (32.0-36.0); MONO % 3.2 % (0.0-8.0); NEUT % 86.5 % (16.0-70.0); PLATELET COUNT 255 TH/MM3 (150-450); RED BLOOD COUNT 3.73 MIL/MM3 (4.00-5.30); RED CELL DISTRIBUTION WIDTH 17.3 % (11.6-17.2); WHITE BLOOD COUNT 8.5 TH/MM3 (4.0-11.0)
[2017-05-07 07:00] LABS: ALKALINE PHOSPHATASE 138 U/L (45-117); ALT (GPT) 156 U/L (10-53); ANION GAP 11 MEQ/L (5-15); AST (GOT) 303 U/L (15-37); BICARBONATE 24.6 MEQ/L (21.0-32.0); BLOOD UREA NITROGEN 19 MG/DL (7-18); CHLORIDE 108 MEQ/L (98-107); GLOMERULAR FILTRATION RATE 80 ML/MIN (>89); MAGNESIUM 2.4 MG/DL (1.5-2.5); POTASSIUM 3.7 MEQ/L (3.5-5.1); SODIUM (NA) 144 MEQ/L (136-145); TOTAL BILIRUBIN ADULT 0.5 MG/DL (0.2-1.0)
[2017-05-07] MEDS: DOCUSATE SODIUM 50 MG/SENNA 8.6 MG TAB PO SCH ×2 (08:27→21:27)
--- NOTE | 2017-05-07 10:12 | HHI.CCPN ---
Subjective Remarks/Hospital Course The patient is a 82 year-old female with multiple medical comorbidities which include a coronary artery disease with previous coronary artery bypass graft x3 , hypertension, gastroesophageal reflux disease, cerebrovascular accident, hyperlipidemia and history of breast cancer. She presented to [facility] emergency department with progressive worsening of shortness of breath for the past several days according to her . The patient was recently discharged from the hospital after she was admitted for a pneumonia. She had a initial saturation of 77 on 77% on room air with some wheezing. The patient also was in atrial fibrillation with rapid ventricular response at a rate of 160 beats per minute and she was given Cardizem and 28 mg IV push prior to arrival. The patient was placed on a BiPap at 12/05 with 65% FIO2 and ABG showed mild respiratory acidosis with a pH of 7.32, CO2 47, pAO2 106, bicarb 23 , saturation of 95%. Her laboratory data significant for lactic acidemia with a lactic acid level of 7.0 and elevated liver enzymes with AST 103, ALT 63. Her B-type natriuretic peptide measured at 262. In the ER she was given bronchodilator treatment, Solu-Medrol 125 mg IV push, calcium gluconate and A chest x-ray In the emergency room showed bilateral perihilar and lower lung zone interstitial opacities and atelectasis at the lung bases. She is scheduled to undergo CT pulmonary angiogram to rule out pulmonary embolus. The patient reports feeling nauseous however, she denies any abdominal pain in addition she denies any chest pain, however she reports edema of lower extremities. 05/07 No events overnight off BIPAP and now on 4L oxygen with good sats. On Cardizem drip 10mg/hr. CTA chest yesterday showed no PE. Afebrile. Objective Vital Signs Date Time Temp Pulse Resp B/P Pulse Ox O2 Delivery O2 Flow Rate FiO2 05/07/17 09:05 100 Nasal Cannula 4.00 05/07/17 08:00 108 05/07/17 08:00 98.4 27 129/86 05/07/17 03:55 40 Intake and Output 05/06/17 05/06/17 05/07/17 08:00 16:00 00:00 Intake Total 141 ml Output Total 600 ml Balance -459 ml Result Diagram: 05/07/17 0448 05/07/17 0448 Other Results Laboratory Tests Test 05/06/17 05/06/17 05/06/17 05/06/17 12:00 12:23 12:45 16:00 White Blood Count 10.0 TH/MM3 Red Blood Count 4.21 MIL/MM3 Hemoglobin 12.5 GM/DL Hematocrit 36.5 % Mean Corpuscular Volume 86.6 FL Mean Corpuscular Hemoglobin 29.6 PG Mean Corpuscular Hemoglobin 34.2 % Concent Red Cell Distribution Width 18.0 % Platelet Count 317 TH/MM3 Mean Platelet Volume 8.7 FL Neutrophils (%) (Auto) 68.6 % Lymphocytes (%) (Auto) 23.0 % Monocytes (%) (Auto) 7.4 % Eosinophils (%) (Auto) 0.4 % Basophils (%) (Auto) 0.6 % Neutrophils # (Auto) 6.9 TH/MM3 Lymphocytes # (Auto) 2.3 TH/MM3 Monocytes # (Auto) 0.7 TH/MM3 Eosinophils # (Auto) 0.0 TH/MM3 Basophils # (Auto) 0.1 TH/MM3 CBC Comment DIFF FINAL Differential Comment Prothrombin Time 14.4 SEC Prothromb Time International 1.3 RATIO Ratio Activated Partial 23.8 SEC Thromboplast Time Sodium Level 141 MEQ/L Potassium Level 4.4 MEQ/L Chloride Level 104 MEQ/L Carbon Dioxide Level 25.0 MEQ/L Anion Gap 12 MEQ/L Blood Urea Nitrogen 16 MG/DL Creatinine 1.08 MG/DL Estimat Glomerular Filtration 48 ML/MIN Rate Random Glucose 155 MG/DL Calcium Level 9.1 MG/DL Magnesium Level 2.6 MG/DL Total Bilirubin 0.8 MG/DL Aspartate Amino Transf 103 U/L (AST/SGOT) Alanine Aminotransferase 63 U/L (ALT/SGPT) Alkaline Phosphatase 197 U/L Total Creatine Kinase 97 U/L Troponin I 0.02 NG/ML B-Type Natriuretic Peptide 262 PG/ML Total Protein 8.3 GM/DL Albumin 3.4 GM/DL Blood Gas Puncture Site LT RADIAL Blood Gas Patient Temperature 98.6 Blood Gas HCO3 23 mmol/L Blood Gas Base Excess -1.8 mmol/L Blood Gas Oxygen Saturation 95 % Arterial Blood pH 7.32 Arterial Blood Partial 47 mmHg Pressure CO2 Arterial Blood Partial 106 mmHG Pressure O2 Arterial Blood Oxygen Content 15.5 Vol % Arterial Blood 1.2 % Carboxyhemoglobin Arterial Blood Methemoglobin 0.5 % Blood Gas Hemoglobin 11.4 G/DL Oxygen Delivery Device BIPAP Blood Gas Ventilator Setting IPAP 12/EPAP 5 Blood Gas Inspired Oxygen 65 % Lactic Acid Level 7.0 mmol/L 2.9 mmol/L Test 05/06/17 05/06/17 05/06/17 05/07/17 17:35 18:50 20:15 04:48 Lactic Acid Level 2.9 mmol/L Phosphorus Level 3.9 MG/DL 2.7 MG/DL Total Creatine Kinase 79 U/L Troponin I 0.05 NG/ML Thyroid Stimulating Hormone 3.980 uIU/ML 3rd Gen Urine Color YELLOW Urine Turbidity CLEAR Urine pH 5.5 Urine Specific [place] 1.015 Urine Protein 30 mg/dL Urine Glucose (UA) NEG mg/dL Urine Ketones NEG mg/dL Urine Occult Blood NEG Urine Nitrite NEG Urine Bilirubin NEG Urine Urobilinogen LESS THAN 2.0 MG/DL Urine Leukocyte Esterase NEG Urine RBC LESS THAN 1 /hpf Urine WBC 2 /hpf Urine Squamous Epithelial <1 /hpf Cells Urine Hyaline Casts 40 /lpf Urine Mucus FEW /lpf Microscopic Urinalysis Comment CATH-CULT NOT IND Nasal Screen MRSA (PCR) MRSA DETECTED White Blood Count 8.5 TH/MM3 Red Blood Count 3.73 MIL/MM3 Hemoglobin 10.3 GM/DL Hematocrit 32.7 % Mean Corpuscular Volume 87.6 FL Mean Corpuscular Hemoglobin 27.7 PG Mean Corpuscular Hemoglobin 31.6 % Concent Red Cell Distribution Width 17.3 % Platelet Count 255 TH/MM3 Mean Platelet Volume 8.2 FL Neutrophils (%) (Auto) 86.5 % Lymphocytes (%) (Auto) 10.2 % Monocytes (%) (Auto) 3.2 % Eosinophils (%) (Auto) 0.0 % Basophils (%) (Auto) 0.1 % Neutrophils # (Auto) 7.4 TH/MM3 Lymphocytes # (Auto) 0.9 TH/MM3 Monocytes # (Auto) 0.3 TH/MM3 Eosinophils # (Auto) 0.0 TH/MM3 Basophils # (Auto) 0.0 TH/MM3 CBC Comment DIFF FINAL Differential Comment Sodium Level 144 MEQ/L Potassium Level 3.7 MEQ/L Chloride Level 108 MEQ/L Carbon Dioxide Level 24.6 MEQ/L Anion Gap 11 MEQ/L Blood Urea Nitrogen 19 MG/DL Creatinine 0.70 MG/DL Estimat Glomerular Filtration 80 ML/MIN Rate Random Glucose 133 MG/DL Calcium Level 8.4 MG/DL Magnesium Level 2.4 MG/DL Total Bilirubin 0.5 MG/DL Aspartate Amino Transf 303 U/L (AST/SGOT) Alanine Aminotransferase 156 U/L (ALT/SGPT) Alkaline Phosphatase 138 U/L Total Protein 6.3 GM/DL Albumin 2.6 GM/DL Imaging Last Impressions Liver Ultrasound 05/06/17 0000 Signed Impressions: Service Date/Time: Saturday, May 06, 2017 17:50 - CONCLUSION: 1. No biliary ductal dilatation. 2. Small right pleural effusion. 3. Septated cyst upper pole right kidney. August Small MD Chest X-Ray 05/06/17 0000 Signed Impressions: Service Date/Time: Saturday, May 06, 2017 11:57 - CONCLUSION: Bilateral perihilar and lower lung zone interstitial opacities could represent pulmonary edema in the appropriate clinical setting. There is also likely atelectasis at the lung bases. Osman Ponce MD CT Angiography 05/06/17 0000 Signed Impressions: Service Date/Time: Saturday, May 06, 2017 19:32 - CONCLUSION: 1. The study is negative for pulmonary embolism. 2. Large bilateral pleural effusions, collapse of the left lower lobe, and patchy infiltrates throughout both lungs. August Small MD Objective Remarks GENERAL: Patient is 82 yo off BIPAP on 4L oxygen. SKIN: Warm and dry. HEAD: Normocephalic. EYES: No scleral icterus. No injection or drainage. NECK: Supple, trachea midline. No JVD or lymphadenopathy. CARDIOVASCULAR:Tachycardic without murmurs, gallops, or rubs. RESPIRATORY: Breath sounds equal bilaterally. No accessory muscle use. GASTROINTESTINAL: Abdomen soft, non-tender, nondistended. MUSCULOSKELETAL: No cyanosis, +edema. BACK: Nontender without obvious deformity. No CVA tenderness. Neuro: Awake, alert. A/P Assessment and Plan 1. Resp Insuff 2. Afib with RVR 3. Pleural effusions 4. Lactic acidemia. 5. Elevated liver enzymes. 6. History of CAD / coronary artery bypass graft 7. Hypertension. 8. History of cerebrovascular accident. Plan Neuro: Monitor neuro status , avoid sedatives Pulm: Continue with oxygen and maintain sats >92%. Bronchodilators, Solu-Medrol 60 mg IV Q8 NIPPV PRN for resp distress CT chest - no PE, will procee with US guided thoracentesis, send pleural fluid for cxs and analysis CV: Wean off Cardizem drip, on PO Cardizem,monitor HR and BP and maintain MAP> 65 mmHg. Serial lactic acid monitoring.. trending down. Echo from March showed EF 40-45%. : Monitor renal function, I/O's, and electrolyte replacement as needed. GI: Speech eval, diet per speech. On Protonix 40 mg IV daily. Monitor LFTs. US Liver: No biliary ductal dilatation. Small right pleural effusion.. Septated cyst upper pole right kidney. ID: Continue abx ( Aztreonam) vanco x 1 dose given in ED . She is allergic to multiple antibiotics. Follow up on blood cultures from 05/06: NGTD strep pneumonia and Legionella urinary antigen negative. Heme: Monitor CBC Endo: SSI with Accu-Chek q. 4-hour for glycemic TSH: 3.9 GI prophylaxis with Protonix 40 mg daily and DVT prophylaxis with SCDs and Lovenox 40 mg subcu daily. Level 3 Sonya Osorio MD May 07, 2017 10:12
--- NOTE | 2017-05-07 11:16 | RADRPT ---
EXAM DATE/TIME: 05/07/2017 10:08 [facility] COMPARISON: CT PULMONARY ANGIOGRAM, May 06, 2017, 19:32. CHEST SINGLE AP, May 06, 2017, 11:57. INDICATIONS : Post thoracetesis. MEDICAL HISTORY : Cardiovascular disease. Carcinoma, breast. SURGICAL HISTORY : CABG Cholecystectomy. ENCOUNTER: Subsequent ACUITY: 2 days PAIN SCORE: 0/10 LOCATION: Bilateral chest FINDINGS: There is no pneumothorax. Consolidative changes are present both lung base is worse in the left. CONCLUSION: Negative for pneumothorax. Dany Mcgregor MD FACR on May 07, 2017 at 10:58 Board Certified Radiologist. This report was verified electronically.
--- NOTE | 2017-05-07 11:42 | EKG ---
Date Performed: 05/06/2017 Time Performed: 11:51:55 PTAGE: 82 years EKG: ATRIAL FIBRILLATION WITH RAPID VENTRICULAR RESPONSE NONSPECIFIC ST & T-WAVE ABNORMALITY ABN ORMAL ECG PREVIOUS TRACING : 03/10/2017 07.20 DOCTOR: Chet Morgan Interpretating Date/Time 05/07/2017 11:41:26
[2017-05-07] MEDS: ENOXAPARIN SODIUM 40 MG/0.4 ML SYRINGE SQ SCH (16:00)
--- NOTE | 2017-05-07 16:02 | RADRPT ---
EXAM DATE/TIME: 05/07/2017 15:33 [facility] COMPARISON: CHEST SINGLE AP, May 07, 2017, 10:08. CHEST EXPIRATION ONLY, March 10, 2017, 19:27. INDICATIONS : Post thoracentesis. MEDICAL HISTORY : None. SURGICAL HISTORY : None. ENCOUNTER: Initial ACUITY: 1 day PAIN SCORE: 0/10 LOCATION: Left chest FINDINGS: Upright portable AP expiratory view the chest demonstrates a normal-sized cardiac silhouette with lamin cification of aorta. Left pleural effusion has resolved there is improved aeration at the left lung b ase with mild residual atelectasis. No pneumothorax is present following recent thoracentesis. Stable right basilar pleural-parenchymal opacity is present. CONCLUSION: 1. No pneumothorax following recent left thoracentesis. There is improved aeration at the left lung b ase with mild residual atelectasis. 2. Stable small right pleural effusion with associated volume loss and/or airspace consolidation. Osman Ponce MD on May 07, 2017 at 15:54 Board Certified Radiologist. This report was verified electronically.
--- NOTE | 2017-05-07 16:21 | RADRPT ---
EXAM DATE/TIME: 05/07/2017 14:27 [facility] COMPARISON: No previous studies available for comparison. INDICATIONS : Left pleural effusion. MEDICAL HISTORY : Hypercholesterolemia. CVA. Headaches. Anticoagulant therapy. Hypertension. Dyspnea. IBS. GERD. Arthri tis. Left breast cancer. Stroke. SURGICAL HISTORY : Tonsillectomy. Cholecystectomy. Bilateral lens implants. Cervical neck fusion. CABG. Cardiac cathete rization. ENCOUNTER: Initial ACUITY: 1 day PAIN SCORE: 5/10 LOCATION: Left chest FLUID: Total volume of 650 cc of clear, yellow fluid was removed. Fluid was sent to lab for ordered studies. TECHNIQUE: 1. Ultrasound guidance for thoracentesis. 2. Thoracentesis. The risks, benefits, and alternatives to ultrasound guided thoracentesis were explained to the patien t in lay simple terms, including the risk of bleeding and infection. Written and verbal informed con sent was obtained. Appropriate area for thoracentesis was marked under ultrasound guidance with the patient in the uprig ht position. Overlying skin was prepped and draped in the usual sterile fashion and with local anest hetic, a dermatotomy was made with an 11 blade scalpel. A 6 Portuguese thoracentesis catheter was placed in the pleural space and fluid was removed. Catheter was then removed and a sterile dressing applie d. There were no immediate complications. The patient tolerated the procedure well and the left the ultrasound suite in stable condition. Chest radiograph is to be obtained. CONCLUSION: Uncomplicated ultrasound guided thoracentesis. Osman Ponce MD on May 07, 2017 at 16:19 Board Certified Radiologist. This report was verified electronically.
--- NOTE | 2017-05-07 16:27 | PD.RAD ---
Post US Procedure Prog Note Pre Procedure Diagnosis: (1) Pleural effusion on left Post Procedure Diagnosis: (1) Pleural effusion on left Procedure Date: May 07, 2017 Supervising Radiologist: Osman Ponce Proceduralist/Assist: Adry Schmitt RDMS Anesthesia: Local Plan of Activity Patient to Unit: Other Patient Condition: Fair See PACS Report for procedural detail/treatment Drainage Procedure Procedure 1 Imaging Guidance: Ultrasound Side: Left Procedure Type: Thoracentesis Fluid Removal (CCs): 650 Fluid Description: Yellow Plan obtain CXR then return to floor. No complications. Osman Ponce MD May 07, 2017 16:27
[2017-05-07 18:26] LABS: PLEURAL FLUID LYMPHS 83 %
[2017-05-07 18:29] LABS: TOTAL PROTEIN,PLEURAL FLUID 1.9 GM/DL
[2017-05-07] MEDS: MORPHINE SULFATE 4 MG/ML INJ IV PUSH PRN (21:29)
[2017-05-07] MEDS: DILTIAZEM INJ 125 MG in SODIUM CHLORIDE 0.9% INJ 100 ML IV SCH (21:35)
[2017-05-07] MEDS: DILTIAZEM HCL 25 MG/5 ML VIAL IV PUSH PRN (21:49)
[2017-05-08] VITALS (23 sets, daily range): BP systolic 101–160; BP diastolic 53–97; PULSE 101–125; RESP 19–40; TEMP 97.8–99.3; O2SAT 84–96
[2017-05-08] MEDS: methylPREDNISolone SOD SUCC 125 MG/2 ML VIAL IV SCH ×3 (00:44→18:36)
[2017-05-08] MEDS: MORPHINE SULFATE 4 MG/ML INJ IV PUSH PRN ×2 (00:45→04:33)
[2017-05-08] MEDS: DILTIAZEM HCL 25 MG/5 ML VIAL IV PUSH PRN ×2 (02:16→18:36)
[2017-05-08] MEDS ORDERED: NITROGLYCERIN 2.5 MG CAP PO ONE (02:45)
[2017-05-08] MEDS ORDERED: METOPROLOL TARTRATE 5 MG/5 ML VIAL IV PUSH ONE (02:45)
[2017-05-08] MEDS ORDERED: METOPROLOL TARTRATE 5 MG/5 ML VIAL IV PUSH SCH (03:00)
[2017-05-08] MEDS ORDERED: NITROGLYCERIN 0.4 MG SL 25 TABS/BTL SL ONE ×3 (03:17→03:40)
[2017-05-08] MEDS: RESP: ALBUTEROL 2.5 MG/IPRATROPIUM 0.5 MG NEB (SCH) INH ×6 (03:56→19:15)
[2017-05-08 04:03] LABS: HEMATOCRIT 30.9 % (35.0-46.0); HEMO FLAGS DIFF FINAL; LYMPHOCYTE # 0.5 TH/MM3 (1.0-4.8); MEAN CORPUSCULAR HEMOGLOBIN 28.2 PG (27.0-34.0); MEAN CORPUSCULAR HGB CONC 32.8 % (32.0-36.0); MONO % 3.6 % (0.0-8.0); NEUT % 93.4 % (16.0-70.0); PLATELET COUNT 287 TH/MM3 (150-450); RED BLOOD COUNT 3.59 MIL/MM3 (4.00-5.30); RED CELL DISTRIBUTION WIDTH 17.7 % (11.6-17.2)
[2017-05-08 04:24] LABS: ALKALINE PHOSPHATASE 138 U/L (45-117); ALT (GPT) 130 U/L (10-53); ANION GAP 11 MEQ/L (5-15); AST (GOT) 117 U/L (15-37); BLOOD UREA NITROGEN 32 MG/DL (7-18); CHLORIDE 106 MEQ/L (98-107); GLOMERULAR FILTRATION RATE 53 ML/MIN (>89); POTASSIUM 3.4 MEQ/L (3.5-5.1); SODIUM (NA) 144 MEQ/L (136-145); TOTAL BILIRUBIN ADULT 0.6 MG/DL (0.2-1.0)
[2017-05-08] MEDS: DILTIAZEM HCL 60 MG TAB PO SCH ×4 (04:32→18:37)
[2017-05-08] MEDS: CHLORHEXIDINE GLUCONATE 2 % 1 PACK (2 CLOTHS) TOP SCH (04:32)
[2017-05-08] MEDS: AZTREONAM INJ 1,000 MG in SODIUM CHLORIDE 0.9% INJ 100 ML IV SCH ×3 (04:32→20:16)
[2017-05-08] MEDS: INSULIN NovoLIN REGULAR SUPPLEMENTAL SCALE SQ SCH ×4 (06:00→18:00)
[2017-05-08] MEDS: DOCUSATE SODIUM 50 MG/SENNA 8.6 MG TAB PO SCH ×2 (10:27→20:15)
--- NOTE | 2017-05-08 12:11 | HHI.CCPN ---
Subjective Remarks/Hospital Course The patient is a 82 year-old female with multiple medical comorbidities which include a coronary artery disease with previous coronary artery bypass graft x3 , hypertension, gastroesophageal reflux disease, cerebrovascular accident, hyperlipidemia and history of breast cancer. She presented to [facility] emergency department with progressive worsening of shortness of breath for the past several days according to her . The patient was recently discharged from the hospital after she was admitted for a pneumonia. She had a initial saturation of 77 on 77% on room air with some wheezing. The patient also was in atrial fibrillation with rapid ventricular response at a rate of 160 beats per minute and she was given Cardizem and 28 mg IV push prior to arrival. The patient was placed on a BiPap at 12/ with 65% FIO2 and ABG showed mild respiratory acidosis with a pH of 7.32, CO2 47, pAO2 106, bicarb 23 , saturation of 95%. Her laboratory data significant for lactic acidemia with a lactic acid level of 7.0 and elevated liver enzymes with AST 103, ALT 63. Her B-type natriuretic peptide measured at 262. In the ER she was given bronchodilator treatment, Solu-Medrol 125 mg IV push, calcium gluconate and A chest x-ray In the emergency room showed bilateral perihilar and lower lung zone interstitial opacities and atelectasis at the lung bases. She is scheduled to undergo CT pulmonary angiogram to rule out pulmonary embolus. The patient reports feeling nauseous however, she denies any abdominal pain in addition she denies any chest pain, however she reports edema of lower extremities. 05/07 No events overnight off BIPAP and now on 4L oxygen with good sats. On Cardizem drip 10mg/hr. CTA chest yesterday showed no PE. Afebrile. 05/08: Currently remains on nasal cannula. Breathing comfortably. Liver enzymes are trending down. WBC increased to 15. Cardizem gtt at 15 mg per hr. start by mouth Cardizem once cleared by speech Objective Vital Signs Date Time Temp Pulse Resp B/P Pulse Ox O2 Delivery O2 Flow Rate FiO2 05/08/17 08:51 94 Nasal Cannula 4.00 05/08/17 06:00 109 05/08/17 04:00 97.8 22 123/53 05/08/17 03:56 40 Intake and Output 05/07/17 05/07/17 05/08/17 08:00 16:00 00:00 Intake Total 64 ml 131 ml 228 ml Output Total 750 ml 200 ml 125 ml Balance -686 ml -69 ml 103 ml Result Diagram: 05/08/17 0352 05/08/17 0352 Other Results Microbiology Date/Time Procedure Status Source Growth 05/06/17 18:50 Legionella Antigen - Final Complete Urine Catheterized Urine PRESUMPTIVE NEGATIVE FOR LEGIONELLA P... 05/06/17 18:50 Streptococcus pneumoniae Antigen (M - Final Complete Urine Catheterized Urine PRESUMPTIVE NEGATIVE FOR STREPTOCOCCU... Imaging Last Impressions Liver Ultrasound 05/06/17 0000 Signed Impressions: Service Date/Time: Saturday, May 06, 2017 17:50 - CONCLUSION: 1. No biliary ductal dilatation. 2. Small right pleural effusion. 3. Septated cyst upper pole right kidney. August Small MD Chest X-Ray 05/06/17 0000 Signed Impressions: Service Date/Time: Saturday, May 06, 2017 11:57 - CONCLUSION: Bilateral perihilar and lower lung zone interstitial opacities could represent pulmonary edema in the appropriate clinical setting. There is also likely atelectasis at the lung bases. Osman Ponce MD CT Angiography 05/06/17 0000 Signed Impressions: Service Date/Time: Saturday, May 06, 2017 19:32 - CONCLUSION: 1. The study is negative for pulmonary embolism. 2. Large bilateral pleural effusions, collapse of the left lower lobe, and patchy infiltrates throughout both lungs. August Small MD Objective Remarks GENERAL: Patient is 82 yo on 4L oxygen, on Cardizem infusion at 15 mg per hour SKIN: Warm and dry. HEAD: Normocephalic. EYES: No scleral icterus. No injection or drainage. NECK: Supple, trachea midline. No JVD or lymphadenopathy. CARDIOVASCULAR:Tachycardic without murmurs, gallops, or rubs. RESPIRATORY: Breath sounds equal bilaterally. No accessory muscle use. GASTROINTESTINAL: Abdomen soft, non-tender, nondistended. MUSCULOSKELETAL: No cyanosis, +edema. BACK: Nontender without obvious deformity. No CVA tenderness. Neuro: Awake, alert. Moves all extremities A/P Assessment and Plan Respiratory insufficiency with hypoxia Afib with RVR Pleural effusions Lactic acidemia. Elevated liver enzymes. History of CAD / coronary artery bypass graft Hypertension. History of cerebrovascular accident. Plan Neuro: Monitor neuro status , avoid sedatives Pulm: Continue with oxygen and maintain sats >92%. Bronchodilators, Solu-Medrol 60 mg IV Q8-reduce to 40 q8 NIPPV PRN for resp distress CT chest - no PE, s/p US guided L thoracentesis, 650 CC removed CV: Wean off Cardizem drip, start PO Cardizem if cleared by speech,monitor HR and BP and maintain MAP> 65 mmHg. Serial lactic acid monitoring.. trending down. Echo from March showed EF 40-45%. : Monitor renal function, I/O's, and electrolyte replacement as needed. GI: Speech eval, diet per speech. On Protonix 40 mg IV daily. Monitor LFTs-trending down. US Liver-unremarkable ID: Continue abx ( Aztreonam) vanco x 1 dose given in ED . She is allergic to multiple antibiotics. Follow up on blood cultures from 05/06: NGTD strep pneumonia and Legionella urinary antigen negative. Heme: Monitor CBC Endo: SSI with Accu-Chek q. 4-hour for glycemic TSH: 3.9 GI prophylaxis with Protonix 40 mg daily and DVT prophylaxis with SCDs and Lovenox 40 mg subcu daily. Level 3 Akil Brewer MD May 08, 2017 12:11
[2017-05-08] MEDS ORDERED: DIGOXIN 0.5 MG/2 ML VIAL IV PUSH ONE (12:15)
[2017-05-08] MEDS: DILTIAZEM INJ 125 MG in SODIUM CHLORIDE 0.9% INJ 100 ML IV SCH ×2 (14:49→20:31)
--- NOTE | 2017-05-08 14:59 | RADRPT ---
EXAM DATE/TIME: 05/08/2017 12:06 [facility] COMPARISON: CHEST SINGLE AP, May 07, 2017, 10:08. INDICATIONS : MEDICAL HISTORY : Hypertension. Cardiovascular disease. Carcinoma, breast. SURGICAL HISTORY : CABG. ENCOUNTER: Subsequent ACUITY: 2 days PAIN SCORE: Non-responsive. LOCATION: Bilateral chest FINDINGS: Improved aeration in the left lower lung zone with continued bilateral, left greater than right, airs pace disease. Cardiomediastinal contours are stable. Remainder of exam is unchanged. CONCLUSION: 1. Improved left lower lung zone aeration with residual, left greater than right, bibasilar airspace disease. Jc Montana MD on May 08, 2017 at 14:36 Board Certified Radiologist. This report was verified electronically.
--- NOTE | 2017-05-08 15:21 | EKG ---
Date Performed: 05/08/2017 Time Performed: 03:15:28 PTAGE: 82 years EKG: Atrial fibrillation with rapid ventricular response Possible left ventricular hypertrophy E xtensive ST-T changes may be due to hypertrophy and/or Ischemia When compared to previous tracing, th e patient remains in atrial Fibrillation, but the heart rate is better controlled. Abnormal ECG PREVIOUS TRACING : 05/06/2017 11.51.55 DOCTOR: Adry Gonzales Interpretating Date/Time 05/08/2017 15:21:28
[2017-05-08] MEDS: ENOXAPARIN SODIUM 40 MG/0.4 ML SYRINGE SQ SCH (18:52)
[2017-05-08] MEDS: POTASSIUM CHLOR 20 MEQ PREMIX 100 ML IV PRN (20:16)
[2017-05-09] VITALS (21 sets, daily range): BP systolic 96–172; BP diastolic 51–100; PULSE 84–122; RESP 22–38; TEMP 98.6–100.9; O2SAT 86–95
[2017-05-09] MEDS: RESP: ALBUTEROL 2.5 MG/IPRATROPIUM 0.5 MG NEB (SCH) INH ×5 (00:12→16:07)
[2017-05-09] MEDS: INSULIN NovoLIN REGULAR SUPPLEMENTAL SCALE SQ SCH ×3 (00:36→11:56)
[2017-05-09] MEDS: DILTIAZEM HCL 60 MG TAB PO SCH ×3 (00:37→11:56)
[2017-05-09] MEDS: POTASSIUM CHLOR 20 MEQ PREMIX 100 ML IV PRN (01:38)
[2017-05-09] MEDS: methylPREDNISolone SOD SUCC 125 MG/2 ML VIAL IV SCH ×2 (01:38→10:48)
[2017-05-09] MEDS: CHLORHEXIDINE GLUCONATE 2 % 1 PACK (2 CLOTHS) TOP SCH (01:38)
[2017-05-09] MEDS: DILTIAZEM INJ 125 MG in SODIUM CHLORIDE 0.9% INJ 100 ML IV SCH ×2 (06:12→16:11)
[2017-05-09] MEDS: AZTREONAM INJ 1,000 MG in SODIUM CHLORIDE 0.9% INJ 100 ML IV SCH ×2 (06:12→14:56)
[2017-05-09] MEDS: DOCUSATE SODIUM 50 MG/SENNA 8.6 MG TAB PO SCH (08:12)
--- NOTE | 2017-05-09 08:49 | HHI.CCPN ---
Subjective Remarks/Hospital Course The patient is a 82 year-old female with multiple medical comorbidities which include a coronary artery disease with previous coronary artery bypass graft x3 , hypertension, gastroesophageal reflux disease, cerebrovascular accident, hyperlipidemia and history of breast cancer. She presented to [facility] emergency department with progressive worsening of shortness of breath for the past several days according to her . The patient was recently discharged from the hospital after she was admitted for a pneumonia. She had a initial saturation of 77 on 77% on room air with some wheezing. The patient also was in atrial fibrillation with rapid ventricular response at a rate of 160 beats per minute and she was given Cardizem and 28 mg IV push prior to arrival. The patient was placed on a BiPap at 09/09 with 65% FIO2 and ABG showed mild respiratory acidosis with a pH of 7.32, CO2 47, pAO2 106, bicarb 23 , saturation of 95%. Her laboratory data significant for lactic acidemia with a lactic acid level of 7.0 and elevated liver enzymes with AST 103, ALT 63. Her B-type natriuretic peptide measured at 262. In the ER she was given bronchodilator treatment, Solu-Medrol 125 mg IV push, calcium gluconate and A chest x-ray In the emergency room showed bilateral perihilar and lower lung zone interstitial opacities and atelectasis at the lung bases. She is scheduled to undergo CT pulmonary angiogram to rule out pulmonary embolus. The patient reports feeling nauseous however, she denies any abdominal pain in addition she denies any chest pain, however she reports edema of lower extremities. 05/07 No events overnight off BIPAP and now on 4L oxygen with good sats. On Cardizem drip 10mg/hr. CTA chest yesterday showed no PE. Afebrile. 05/08: Currently remains on nasal cannula. Breathing comfortably. Liver enzymes are trending down. WBC increased to 15. Cardizem gtt at 15 mg per hr. start by mouth Cardizem once cleared by speech 05/09 No events ovenright. On BIPAP 07/10 with 505 FIO2. Afebrile. On Cardizem drip 10mg/hr Objective Vital Signs Date Time Temp Pulse Resp B/P Pulse Ox O2 Delivery O2 Flow Rate FiO2 05/09/17 07:00 92 Bi-Pap 50 05/09/17 06:00 93 05/09/17 04:00 98.7 38 96/55 05/08/17 08:51 4.00 Intake and Output 05/08/17 05/08/17 05/08/17 07:59 15:59 23:59 Intake Total 365 ml 850 ml Output Total 150 ml 700 ml Balance 215 ml 150 ml Result Diagram: 05/08/17 0352 05/08/17 0352 Imaging Last Impressions Chest X-Ray 05/08/17 0000 Signed Impressions: Service Date/Time: May 12:06 - CONCLUSION: 1. Improved left lower lung zone aeration with residual, left greater than right, bibasilar airspace disease. Jc Montana MD Thoracentesis Ultrasound 05/07/17 0000 Signed Impressions: Service Date/Time: Sunday, May 07, 2017 14:27 - CONCLUSION: Uncomplicated ultrasound guided thoracentesis. Osman Ponce MD Liver Ultrasound 05/06/17 0000 Signed Impressions: Service Date/Time: Saturday, May 06, 2017 17:50 - CONCLUSION: 1. No biliary ductal dilatation. 2. Small right pleural effusion. 3. Septated cyst upper pole right kidney. August Small MD CT Angiography 05/06/17 0000 Signed Impressions: Service Date/Time: Saturday, May 06, 2017 19:32 - CONCLUSION: 1. The study is negative for pulmonary embolism. 2. Large bilateral pleural effusions, collapse of the left lower lobe, and patchy infiltrates throughout both lungs. August Small MD Objective Remarks GENERAL: Patient is 82 yo on 4L oxygen, on Cardizem infusion at 10mg/hr HEAD: Normocephalic. EYES: No scleral icterus. No injection or drainage. NECK: Supple, trachea midline. No JVD or lymphadenopathy. CARDIOVASCULAR:Tachycardic without murmurs, gallops, or rubs. RESPIRATORY: Breath sounds equal bilaterally. No accessory muscle use. GASTROINTESTINAL: Abdomen soft, non-tender, nondistended. MUSCULOSKELETAL: No cyanosis, +edema. BACK: Nontender without obvious deformity. No CVA tenderness. Neuro: Awake, alert. Moves all extremities A/P Assessment and Plan Respiratory insufficiency with hypoxia Afib with RVR Pleural effusions Lactic acidemia. Elevated liver enzymes. History of CAD / coronary artery bypass graft Hypertension. History of cerebrovascular accident. Plan Neuro: Monitor neuro status , avoid sedatives Pulm: Continue with oxygen and maintain sats >92%. Bronchodilators, Solu-Medrol 40mg q8 NIPPV PRN for resp distress CT chest - no PE, s/p US guided L thoracentesis, 650 CC removed on 05/07 (Transudative effusion) Check CXR , ABG CV: Wean off Cardizem drip, On PO Cardizem 60mg Q6 ,monitor HR and BP and maintain MAP> 65 mmHg. Lactic acid cleared 1.7 on 05/07 Echo from March showed EF 40-45%. : Monitor renal function, I/O's, and electrolyte replacement as needed. GI: On Protonix 40 mg IV daily. On heart healthy diet Monitor LFTs-trending down. US Liver-unremarkable ID: Continue abx ( Aztreonam) vanco x 1 dose given in ED . She is allergic to multiple antibiotics. Follow up on blood cultures from 05/06: NGTD, Fluid cx: No growth strep pneumonia and Legionella urinary antigen negative. Heme: Monitor CBC Endo: SSI with Accu-Chek q. 4-hour for glycemic TSH: 3.9 GI prophylaxis with Protonix 40 mg daily and DVT prophylaxis with SCDs and Lovenox 40 mg subcu daily. Follow up on labs today Palliative care met with family and they elected to go with hospice Level 3 Sonya Osorio MD May 09, 2017 08:48
[2017-05-09 11:48] LABS: AUTOMATED NEUTROPHIL # 18.2 TH/MM3 (1.8-7.7); BASOPHIL # 0.1 TH/MM3 (0-0.2); BASOPHIL % 0.3 % (0.0-2.0); HEMATOCRIT 36.2 % (35.0-46.0); HEMO FLAGS DIFF FINAL; LYMPH % 1.8 % (9.0-44.0); LYMPHOCYTE # 0.4 TH/MM3 (1.0-4.8); MEAN CELL VOLUME 87.5 FL (80.0-100.0); MEAN CORPUSCULAR HGB CONC 30.9 % (32.0-36.0); MONO % 4.7 % (0.0-8.0); NEUT % 93.2 % (16.0-70.0); PLATELET COUNT 331 TH/MM3 (150-450); RED BLOOD COUNT 4.14 MIL/MM3 (4.00-5.30); RED CELL DISTRIBUTION WIDTH 18.1 % (11.6-17.2); WHITE BLOOD COUNT 19.5 TH/MM3 (4.0-11.0)
[2017-05-09 12:14] LABS: ALKALINE PHOSPHATASE 140 U/L (45-117); ALT (GPT) 98 U/L (10-53); ANION GAP 10 MEQ/L (5-15); AST (GOT) 41 U/L (15-37); BICARBONATE 25.6 MEQ/L (21.0-32.0); BLOOD UREA NITROGEN 36 MG/DL (7-18); CHLORIDE 110 MEQ/L (98-107); GLOMERULAR FILTRATION RATE 58 ML/MIN (>89); MAGNESIUM 3.1 MG/DL (1.5-2.5); POTASSIUM 4.1 MEQ/L (3.5-5.1); SODIUM (NA) 146 MEQ/L (136-145); TOTAL BILIRUBIN ADULT 0.7 MG/DL (0.2-1.0)
[2017-05-09] MEDS: ENOXAPARIN SODIUM 40 MG/0.4 ML SYRINGE SQ SCH (14:56)
--- NOTE | 2017-05-09 15:10 | RADRPT ---
EXAM DATE/TIME: 05/09/2017 13:52 [place] COMPARISON: CHEST SINGLE AP, May 08, 2017, 12:06. INDICATIONS : Short of breath. MEDICAL HISTORY : Hypertension. Cardiovascular disease. Carcinoma, breast. SURGICAL HISTORY : CABG. ENCOUNTER: Subsequent ACUITY: 3 days PAIN SCORE: Non-responsive. LOCATION: Bilateral chest FINDINGS: Further deterioration in the appearance of the chest with increasing consolidative changes in both fernando ngs with cardiomegaly. The portion of the bony skeleton visualized is unremarkable. CONCLUSION: Further deterioration with increasing side changes both lungs. Dany Mcgregor MD FACR on May 09, 2017 at 15:08 Board Certified Radiologist. This report was verified electronically.
--- NOTE | 2017-05-09 15:23 | PD.CONS ---
Consult Service Palliative Care Consult Requested By Dr. Doty . Primary Care Physician Unknown . Reason for Consultation a. To assist with evaluation and management of symptoms including: Dyspnea , anxiety b. To assist medical decision maker(s) with: better understanding of current medical conditions; weighing benefits/burdens of medical treatment options; making medical treatment decisions. . HPI History of Present Illness This 82-year-old female, with a past history of restrictive lung disease, atrial fibrillation, CAD, and CVA, was admitted to this hospital on 03/10/17 because of respiratory failure. She was intubated and mechanically ventilated for 5 days, he eventually improved enough to go to rehab for 3 weeks, and then was back home. However, she remained quite weak, requiring assistance to get up from chair (helped by her ), requiring supplemental oxygen. The patient suffered 2 falls in the month in between hospitalizations, with bruising but no apparent fractures. The patient began getting more short of breath again a week or so ago, and presented to the emergency department again on 05/06/17 because of dyspnea. Her room air oxygen saturation was 77%, and she was noted to have recurrent rapid atrial fib. Cardizem was initiated, BiPAP was applied, and findings in the emergency department included: * Obviously dyspneic, somewhat confused * Atrial fibrillation with RVR * Temp 97.6, pulse 102, respirations 29, blood pressure 113/69, oxygen saturation subsequently 100% on BiPAP * White count 10.0, hemoglobin 12.5 * Sodium 141, creatinine 1.08 * Lactic acid 7.0 * CT angiogram of the chest negative for PE, but noted to have large pleural effusions and some patchy infiltrates bilaterally. The patient was admitted to the [facility]. A thoracentesis of the left chest on produced 650 cc. She was able to come off of BiPAP for a short time, but by the following day was having more dyspnea and was back on BiPAP. A chest x-ray on 05/08/17 revealed residual airspace disease left greater than right. Her white count was then up to 15. A swallow evaluation was performed and she did not show evidence of aspiration. By today, the patient's dyspnea was worsening , and in spite of BiPAP her oxygen saturation was dropping (87% while I am in the room). The patient was confused, mumbling at times, and appeared moderately dyspneic. The repeat chest x-ray today showed definite worsening. Palliative Care was consulted to assist with symptom management, and to enter into discussions with the patient's family regarding her current illnesses, the prognosis, and the benefits and burdens of the various treatment choices. . Function/Cognitive Trajectory Since her hospitalization here in March and her stay in a rehabilitation facility for 3 weeks, the patient was quite weak. She required assistance at times to get up from a chair, and could ambulate a few steps with her walker. . Review of Systems ROS Limitations: Clinical Condition, Altered Mental Status Constitutional: COMPLAINS OF: Weight loss Endocrine: DENIES: Polyuria Eyes: DENIES: Eye inflammation Ears, nose, mouth, throat: DENIES: Epistaxis Respiratory: COMPLAINS OF: Cough, Shortness of breath Cardiovascular: COMPLAINS OF: Lower Extremity Edema, DENIES: Chest pain Gastrointestinal: DENIES: Diarrhea, Vomiting Genitourinary: DENIES: Hematuria Musculoskeletal: COMPLAINS OF: Back pain (chronic), Neck pain (chronic) Integumentary: DENIES: Rash Hematologic/Lymphatics: DENIES: Lymphadenopathy Immunologic/Allergic: DENIES: Urticaria Neurologic: DENIES: Localized weakness, Seizures Psychiatric: COMPLAINS OF: Confusion, DENIES: Agitation Past Family Social History Coded Allergies: Amlodipine (Unverified Allergy, Severe, swellings in the legs, 05/06/17) Azithromycin (Verified Allergy, Severe, 05/06/17) unknown Darvon (Verified Allergy, Severe, LIGHT HEADED, 05/06/17) Naproxen (Verified Allergy, Severe, DIZZINESS, 05/06/17) Penicillin (Verified Allergy, Severe, Rash, 05/06/17) Protonix (Verified Allergy, Severe, 05/06/17) pt states its ok to take Sulfa (Verified Allergy, Severe, Hives, 05/06/17) CONFIRM? Zetia (Unverified Allergy, Severe, RASH, 05/06/17) CRESTOR (Unverified Allergy, Unknown, legs aching, 05/06/17) Lipitor (Verified Adverse Reaction, Severe, MUSCLE ACHES, JOINT SORENESS, 05/06/17) pt states its ok to take Zocor (Verified Adverse Reaction, Severe, MUSCLE ACHES, JOINT SORENESS, 05/06/17) *MDRO Multi-Drug Resistant Organism (Verified Adverse Reaction, Unknown, ) MRSA PCR screen Positive 05/06/17 Uncoded Allergies: LOTEMAX (Allergy, Severe, eye lids get sore, 03/25/14) STATINS (Adverse Reaction, Intermediate, MUSCLE CRAMPS LEGS AND SORENESS IN JOINTS, 09/13/10) Past Medical History * Respiratory failure, hypercapnic and hypoxic * Restrictive lung disease on recent PFT * Rapid atrial fib * CAD, status post CABG * Chronic back and neck pain * History of left breast cancer and surgery * Irritable bowel syndrome * Depression * History of CVA, remote * GERD * Hypertension * Hyperlipidemia * Degenerative joint disease . Past Surgical History * tonsils * cataracts * CABG 2003 * back surg X 2 * cervical stenosis surg * L breast lumpectomy . Reported Medications Reported Meds & Active Scripts Active Reported Xanax (Alprazolam) 0.5 Mg Tab 0.5 Mg PO DAILY PRN Lexapro (Escitalopram Oxalate) 10 Mg Tab 10 Mg PO DAILY Ondansetron Odt 4 Mg Tab 4-8 Mg SL BID PRN Ergocalciferol 50,000 Unit Cap 50,000 Units PO WEEKLY Alendronate (Alendronate Sodium) 35 Mg Tab 35 Mg PO WEEKLY Gabapentin 100 Mg Cap 200 Mg PO BID . Current Medications Medications (Trade) Dose Ordered Sig/Meet Route Start Time Stop Time Status Last Admin Sodium Chloride 2 ml 2 ml UNSCH PRN IVF 05/06/17 11:45 05/09/17 08:12 (Cardizem Inj/NS Inj) 125 ml @ 0 mls/hr TITRATE IV 05/06/17 12:15 05/09/17 06:12 (Lovenox Inj) 40 mg Q24H SQ 05/06/17 16:00 05/09/17 14:56 Miscellaneous Information 1 Q361D XX 05/06/17 14:00 (Chlorhexidine 2% Cloth) 3 pack Taper DAILY@04 TOP 05/07/17 04:00 05/03/18 03:59 05/09/17 01:38 (Chlorhexidine 2% Cloth) 3 pack UNSCH PRN TOP 05/06/17 14:00 (Bonnie-Colace) 1 tab BID PO 05/06/17 15:00 05/09/17 08:12 (Milk Of Magnesia Liq) 30 ml Q12HR PRN PO 05/06/17 15:00 (Senokot) 17.2 mg Q12HR PRN PO 05/06/17 15:00 (Dulcolax Supp) 10 mg DAILY PRN RECTAL 05/06/17 15:00 Lactulose 30 ml 30 ml DAILY PRN PO 05/06/17 15:00 (Azactam Inj/NS Inj) 100 ml @ 200 mls/hr Q8H IV 05/06/17 22:00 05/09/17 14:56 (SoluMEDROL INJ) 60 mg Q8H IV 05/06/17 18:00 05/09/17 10:48 (D50w (Vial) Inj) 50 ml UNSCH PRN IV 05/06/17 16:00 (Glucagon Inj) 1 mg UNSCH PRN OTHER 05/06/17 16:00 Insulin Human Regular 1 1 Q6HR SQ 05/06/17 18:00 05/09/17 11:56 Potassium Chloride 100 ml @ 50 mls/hr Q2H PRN IV 05/06/17 16:00 (KCl 20 Meq Premix Inj) 100 ml @ 50 mls/hr Q2H PRN IV 05/06/17 16:00 Potassium Bicarb/ Potassium Chloride 50 meq 50 meq UNSCH PRN PO 05/06/17 16:00 Potassium Chloride 100 ml @ 25 mls/hr UNSCH PRN IV 05/06/17 16:00 Potassium Chloride 100 ml @ 50 mls/hr Q2H PRN IV 05/06/17 16:00 05/09/17 01:38 (Magnesium Sulfate Inj/NS Inj) 100 ml @ 50 mls/hr UNSCH PRN IV 05/06/17 16:00 Magnesium Oxide 800 mg 800 mg UNSCH PRN PO 05/06/17 16:00 (Magnesium Sulfate Inj/NS Inj) 100 ml @ 50 mls/hr UNSCH PRN IV 05/06/17 16:00 Potassium Phosphate 2000 mg 2,000 mg Q4H PRN PO 05/06/17 16:00 (Sodium Phosphate Inj/NS 250 ml Inj) 250 ml @ 42 mls/hr UNSCH PRN IV 05/06/17 16:00 Potassium Phosphate 2000 mg 2,000 mg UNSCH PRN PO/TUBE 05/06/17 16:00 (Potassium Phosphate Inj/NS 250 ml Inj) 260 ml @ 42 mls/hr UNSCH PRN IV 05/06/17 16:00 (Cardizem) 60 mg Q6HR PO 05/06/17 18:00 05/09/17 11:56 (Morphine Inj) 2 mg Q3H PRN IV PUSH 05/07/17 20:30 05/08/17 04:33 Family History Patient's father in his 80s of lung disease, and her mother at age 75 with a stroke and diabetes. 3 brothers had CAD. . Substance Use Tobacco: None Alcohol: None Prescription med abuse: None Illicits: None . Psychosocial History The patient was born in [facility] and his lived in [place] her entire life. She has lived here in this area for many years. She has been for 52 years, and has no children. She does have a sister locally. 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 . 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 . Living Will: Never completed Health Care Surrogate: Never completed Durable Power of Director Of Premium Seat Sales: Never completed Family/friends goals: The patient's and the patient's sister both agree that the patient would not want to go back on life support machines, and that she would want to focus on comfort. The patient told her a couple days prior to this admission "I'm not going to make it much longer." They request hospice services , DNR status. . Ethical and Legal Issues There are no ethical issues that would impact her care or decision-making at this time. The patient is confused and does not have capacity for decision-making. She is too weak to engage in conversations involving complex subjects like CODE STATUS and hospice services. Her is her proxy decision-maker. . Physical Exam Vital Signs Date Time Temp Pulse Resp B/P Pulse Ox O2 Delivery O2 Flow Rate FiO2 05/09/17 13:04 89 BiPAP 75 05/09/17 12:55 88 75 05/09/17 07:15 98.6 05/09/17 07:00 92 Bi-Pap 50 05/09/17 06:00 93 05/09/17 04:31 95 50 05/09/17 04:00 98.7 94 38 96/55 94 05/09/17 04:00 94 05/09/17 02:00 93 05/09/17 00:12 92 50 05/09/17 00:00 98.9 91 22 107/51 94 05/09/17 00:00 91 05/08/17 22:00 101 05/08/17 20:00 99.3 115 40 104/66 84 05/08/17 20:00 115 05/08/17 20:00 Bi-Pap 05/08/17 19:16 93 50 05/08/17 19:16 93 BiPAP 55 05/08/17 18:00 120 24 140/60 92 05/08/17 17:30 122 28 123/59 91 05/08/17 17:00 115 26 120/74 91 05/08/17 16:00 121 27 127/75 93 05/08/17 05/09/17 19:00 07:00 Intake Total 240 ml 1120 ml Output Total 200 ml 750 ml Balance 40 ml 370 ml Intake Oral 240 ml 120 ml IV Total 1000 ml Output Urine Total 200 ml 750 ml # Bowel Movements 0 Exam CONSTITUTIONAL/GENERAL: This is an elderly, weak patient, in moderate respiratory distress. TUBES/LINES/DRAINS: BiPAP, 2 peripheral IVs, Smith SKIN: No jaundice, rashes, or lesions. Ecchymoses on upper extremities. No wounds seen anteriorly. Skin temperature appropriate. Not diaphoretic. HEAD: Atraumatic. Normocephalic. EYES: Pupils equal and round and reactive. Extraocular motions intact. No scleral icterus. No injection or drainage. Fundi not examined. ENT: Hearing grossly normal. Nose without bleeding or purulent drainage. NECK: Trachea midline. Supple, nontender. No palpable thyroid enlargement or nodularity. CARDIOVASCULAR: Irregularly irregular rhythm without murmurs, gallops, or rubs. No JVD. Peripheral pulses symmetric. RESPIRATORY/CHEST: Symmetric, but mild to moderately labored respirations. Scattered rales bilateral GASTROINTESTINAL: Abdomen soft, non-tender, nondistended. No hepato-splenomegaly , or palpable masses. No guarding. Bowel sounds present. GENITOURINARY: Without palpable bladder distension. Smith catheter in place. MUSCULOSKELETAL: Extremities without clubbing, cyanosis, or edema. No joint tenderness or effusion noted. No calf tenderness. No mottling or clubbing. LYMPHATICS: No palpable cervical or supraclavicular adenopathy. NEUROLOGICAL: Awake and alert. Confused but follows simple commands. PSYCHIATRIC: Seems anxious related to the dyspnea . Diagnostic Tests Laboratory Laboratory Tests Test 05/06/17 05/06/17 05/06/17 05/06/17 16:00 17:35 18:50 20:15 Lactic Acid Level 2.9 mmol/L 2.9 mmol/L (0.4-2.0) (0.4-2.0) Phosphorus Level 3.9 MG/DL (2.5-4.9) Total Creatine Kinase 79 U/L (26-192) Troponin I 0.05 NG/ML (0.02-0.05) Thyroid Stimulating Hormone 3.980 uIU/ML 3rd Gen (0.358-3.740) Urine Color YELLOW (YELLW/STRAW) Urine Turbidity CLEAR (CLEAR) Urine pH 5.5 (5.0-8.5) Urine Specific [place] 1.015 (1.002-1.035) Urine Protein 30 mg/dL (NEG-TRACE) Urine Glucose (UA) NEG mg/dL (NEG) Urine Ketones NEG mg/dL (NEG) Urine Occult Blood NEG (NEG) Urine Nitrite NEG (NEG) Urine Bilirubin NEG (NEG) Urine Urobilinogen LESS THAN 2.0 MG/DL (LESS THAN 2.0) Urine Leukocyte Esterase NEG (NEG) Urine RBC LESS THAN 1 /hpf (0-3) Urine WBC 2 /hpf (0-5) Urine Squamous Epithelial <1 /hpf (0-5) Cells Urine Hyaline Casts 40 /lpf (RARE) Urine Mucus FEW /lpf (OCC) Microscopic Urinalysis Comment CATH-CULT NOT IND Nasal Screen MRSA (PCR) MRSA DETECTED (NOT DETECT) Test 05/07/17 05/07/17 05/07/17 05/08/17 04:48 11:25 15:25 03:52 White Blood Count 8.5 TH/MM3 15.0 TH/MM3 (4.0-11.0) (4.0-11.0) Red Blood Count 3.73 MIL/MM3 3.59 MIL/MM3 (4.00-5.30) (4.00-5.30) Hemoglobin 10.3 GM/DL 10.1 GM/DL (11.6-15.3) (11.6-15.3) Hematocrit 32.7 % 30.9 % (35.0-46.0) (35.0-46.0) Mean Corpuscular Volume 87.6 FL 86.0 FL (80.0-100.0) (80.0-100.0) Mean Corpuscular Hemoglobin 27.7 PG 28.2 PG (27.0-34.0) (27.0-34.0) Mean Corpuscular Hemoglobin 31.6 % 32.8 % Concent (32.0-36.0) (32.0-36.0) Red Cell Distribution Width 17.3 % 17.7 % (11.6-17.2) (11.6-17.2) Platelet Count 255 TH/MM3 287 TH/MM3 (150-450) (150-450) Mean Platelet Volume 8.2 FL 8.0 FL (7.0-11.0) (7.0-11.0) Neutrophils (%) (Auto) 86.5 % 93.4 % (16.0-70.0) (16.0-70.0) Lymphocytes (%) (Auto) 10.2 % 3.0 % (9.0-44.0) (9.0-44.0) Monocytes (%) (Auto) 3.2 % (0.0-8.0) 3.6 % (0.0-8.0) Eosinophils (%) (Auto) 0.0 % (0.0-4.0) 0.0 % (0.0-4.0) Basophils (%) (Auto) 0.1 % (0.0-2.0) 0.0 % (0.0-2.0) Neutrophils # (Auto) 7.4 TH/MM3 14.0 TH/MM3 (1.8-7.7) (1.8-7.7) Lymphocytes # (Auto) 0.9 TH/MM3 0.5 TH/MM3 (1.0-4.8) (1.0-4.8) Monocytes # (Auto) 0.3 TH/MM3 0.5 TH/MM3 (0-0.9) (0-0.9) Eosinophils # (Auto) 0.0 TH/MM3 0.0 TH/MM3 (0-0.4) (0-0.4) Basophils # (Auto) 0.0 TH/MM3 0.0 TH/MM3 (0-0.2) (0-0.2) CBC Comment DIFF FINAL DIFF FINAL Differential Comment Sodium Level 144 MEQ/L 144 MEQ/L (136-145) (136-145) Potassium Level 3.7 MEQ/L 3.4 MEQ/L (3.5-5.1) (3.5-5.1) Chloride Level 108 MEQ/L 106 MEQ/L (98-107) (98-107) Carbon Dioxide Level 24.6 MEQ/L 27.0 MEQ/L (21.0-32.0) (21.0-32.0) Anion Gap 11 MEQ/L (5-15) 11 MEQ/L (5-15) Blood Urea Nitrogen 19 MG/DL (7-18) 32 MG/DL (7-18) Creatinine 0.70 MG/DL 1.00 MG/DL (0.50-1.00) (0.50-1.00) Estimat Glomerular Filtration 80 ML/MIN (>89) 53 ML/MIN (>89) Rate Random Glucose 133 MG/DL 174 MG/DL (74-106) (74-106) Calcium Level 8.4 MG/DL 8.8 MG/DL (8.5-10.1) (8.5-10.1) Phosphorus Level 2.7 MG/DL (2.5-4.9) Magnesium Level 2.4 MG/DL (1.5-2.5) Total Bilirubin 0.5 MG/DL 0.6 MG/DL (0.2-1.0) (0.2-1.0) Aspartate Amino Transf 303 U/L (15-37) 117 U/L (15-37) (AST/SGOT) Alanine Aminotransferase 156 U/L (10-53) 130 U/L (10-53) (ALT/SGPT) Alkaline Phosphatase 138 U/L 138 U/L (45-117) (45-117) Total Protein 6.3 GM/DL 6.5 GM/DL (6.4-8.2) (6.4-8.2) Albumin 2.6 GM/DL 2.8 GM/DL (3.4-5.0) (3.4-5.0) Lactic Acid Level 1.7 mmol/L (0.4-2.0) Pleural Fluid pH 8.0 Pleural Fluid WBC 11 /MM3 (0-10) Pleural Fluid RBC 132 /MM3 (0-0) Pleural Fluid Neutrophils 10 % Pleural Fluid Lymphocytes 83 % Pleural Fluid Monocytes 7 % Pleural Fluid Total Protein 1.9 GM/DL Pleural Fluid LDH 98 U/L Pleural Fluid Glucose 149 MG/DL Troponin I LESS THAN 0.02 NG/ML (0.02-0.05) Test 05/09/17 11:19 White Blood Count 19.5 TH/MM3 (4.0-11.0) Red Blood Count 4.14 MIL/MM3 (4.00-5.30) Hemoglobin 11.2 GM/DL (11.6-15.3) Hematocrit 36.2 % (35.0-46.0) Mean Corpuscular Volume 87.5 FL (80.0-100.0) Mean Corpuscular Hemoglobin 27.0 PG (27.0-34.0) Mean Corpuscular Hemoglobin 30.9 % Concent (32.0-36.0) Red Cell Distribution Width 18.1 % (11.6-17.2) Platelet Count 331 TH/MM3 (150-450) Mean Platelet Volume 7.7 FL (7.0-11.0) Neutrophils (%) (Auto) 93.2 % (16.0-70.0) Lymphocytes (%) (Auto) 1.8 % (9.0-44.0) Monocytes (%) (Auto) 4.7 % (0.0-8.0) Eosinophils (%) (Auto) 0.0 % (0.0-4.0) Basophils (%) (Auto) 0.3 % (0.0-2.0) Neutrophils # (Auto) 18.2 TH/MM3 (1.8-7.7) Lymphocytes # (Auto) 0.4 TH/MM3 (1.0-4.8) Monocytes # (Auto) 0.9 TH/MM3 (0-0.9) Eosinophils # (Auto) 0.0 TH/MM3 (0-0.4) Basophils # (Auto) 0.1 TH/MM3 (0-0.2) CBC Comment DIFF FINAL Differential Comment Sodium Level 146 MEQ/L (136-145) Potassium Level 4.1 MEQ/L (3.5-5.1) Chloride Level 110 MEQ/L (98-107) Carbon Dioxide Level 25.6 MEQ/L (21.0-32.0) Anion Gap 10 MEQ/L (5-15) Blood Urea Nitrogen 36 MG/DL (7-18) Creatinine 0.92 MG/DL (0.50-1.00) Estimat Glomerular Filtration 58 ML/MIN (>89) Rate Random Glucose 169 MG/DL (74-106) Calcium Level 8.8 MG/DL (8.5-10.1) Phosphorus Level 1.9 MG/DL (2.5-4.9) Magnesium Level 3.1 MG/DL (1.5-2.5) Total Bilirubin 0.7 MG/DL (0.2-1.0) Aspartate Amino Transf 41 U/L (15-37) (AST/SGOT) Alanine Aminotransferase 98 U/L (10-53) (ALT/SGPT) Alkaline Phosphatase 140 U/L (45-117) Total Protein 7.2 GM/DL (6.4-8.2) Albumin 3.1 GM/DL (3.4-5.0) Result Diagram: 05/09/17 1119 05/09/17 1119 Microbiology Microbiology Date/Time Procedure Status Source Growth 05/06/17 18:50 Legionella Antigen - Final Complete Urine Catheterized Urine PRESUMPTIVE NEGATIVE FOR LEGIONELLA P... 05/06/17 18:50 Streptococcus pneumoniae Antigen (M - Final Complete Urine Catheterized Urine PRESUMPTIVE NEGATIVE FOR STREPTOCOCCU... 05/07/17 15:25 Gram Stain - Final Resulted Fluid Pleural Fluid 05/07/17 15:25 Body Fluid Culture - Preliminary Resulted Fluid Pleural Fluid NO GROWTH IN 48 HOURS. Imaging Last Impressions Chest X-Ray 05/09/17 0000 Signed Impressions: Service Date/Time: Tuesday, May 09, 2017 13:52 - CONCLUSION: Further deterioration with increasing side changes both lungs. Dany Mcgregor MD FACR Thoracentesis Ultrasound 05/07/17 0000 Signed Impressions: Service Date/Time: Sunday, May 07, 2017 14:27 - CONCLUSION: Uncomplicated ultrasound guided thoracentesis. Osman Ponce MD Liver Ultrasound 05/06/17 0000 Signed Impressions: Service Date/Time: Saturday, May 06, 2017 17:50 - CONCLUSION: 1. No biliary ductal dilatation. 2. Small right pleural effusion. 3. Septated cyst upper pole right kidney. August Samll MD CT Angiography 05/06/17 0000 Signed Impressions: Service Date/Time: Saturday, May 06, 2017 19:32 - CONCLUSION: 1. The study is negative for pulmonary embolism. 2. Large bilateral pleural effusions, collapse of the left lower lobe, and patchy infiltrates throughout both lungs. August Small MD Procedures BiPAP 05/06/17 . Patient/Family Conference Present at Family Conference: Patient's August, and sister Addie. Also present Gloria ANDERSON . Family Conference Time (mins): 41 Family Conference Location: Consult Room Issues Discussed: * Palliative care role, purpose, approach * Hospice care role, purpose, approach * Additional medical, psychosocial, and spiritual history * Patients general health, functional status, and cognitive changes in the months leading up to the current hospitalization * Patient/family understanding of the current medical problems * Patient/family understanding of prognosis * Patients goals of care as best understood from advance directives and/or conversations and/or values * Current medical treatment options and benefits/burdens of those options * Likely scenarios comparing ongoing aggressive care with a transition to comfort measures only * Questions answered to the best of my ability * Palliative care contact information provided The patient's and the patient's sister both agree that the patient would not want to go back on life support machines, and that she would want to focus on comfort. The patient told her a couple days prior to this admission "I'm not going to make it much longer." They request hospice services , DNR status. . 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 She is too weak to engage in conversations involving complex subjects like CODE STATUS and hospice services. Her is her proxy decision-maker. Ethical issues impacting care: None . Important Contacts : August Orozco [phone], . Plan * DO NOT RESUSCITATE, per request of patient's 05/09/17 * GOALS: The patient's and the patient's sister both agree that the patient would not want to go back on life support machines, and that she would want to focus on comfort. The patient told her a couple days prior to this admission "I'm not going to make it much longer." They request hospice services, DNR status. * DECISION-MAKING: The patient is confused and does not have capacity for decision-making. She is too weak to engage in conversations involving complex subjects like CODE STATUS and hospice services. Her is her proxy decision-maker. * Hospice consult placed * SYMPTOMS: The patient's dyspnea could be managed with opiates and benzodiazepines. She does have some chronic neck and back pain, and those comfort medicines should manage that also. * Obstetrics Specialist visit requested. * Palliative Care will continue to follow the patient during this hospitalization. . Time Spent Total Floor Time (mins): 79 Face to Face Time (mins): 50 >50% Counseling/Coord of Care: Yes (d/w Dr. Doty and with RN) Thank you for the opportunity to participate in the care of Ms. Orozco. Attestation To help prompt me to consider important information that might be impacting today's encounter and assessment, information from prior notes written by myself or my colleagues may have been "brought forward" into today's note. My signature on this note, however, is an attestation that I personally performed the exam, history, and/or decision-making noted today, and, unless otherwise indicated, the interactions with patient, family, and staff as well as the review of records all occurred today. I also attest that the listed assessment and stated plan reflect my best clinical judgment today based on the combination of historical information, prior notes, and today's exam/ interactions. When time spent is documented, it refers only to time spent today by the signer, or if indicated, combined time spent today by collaborating physician/nurse practitioner. Keira Naylor MD May 09, 2017 15:23
[2017-05-09] MEDS ORDERED: BUMETANIDE INJ 1 MG/4 ML VIAL IV PUSH ONE (16:00)
== END 2017-05-09 18:04 | disposition hospice, inpatient (51) | DRG 186 ==
LOC: NEPC 11:37 → NEDA 13:38 → HIMN 20:00
PROVIDERS: ADMIT Internal Medicine Critical Care Medicine; ATTEND Internal Medicine Critical Care Medicine
PROC: 5A09457 Assistance with Respiratory Ventilation, 24-96 Consecutive Hours, Continuous Positive Airway Pressure (ICD-10-PCS; principal; 2017-05-06)
PROC: 0W9B3ZX Drainage of Left Pleural Cavity, Percutaneous Approach, Diagnostic (ICD-10-PCS; 2017-05-07)
DX: J90 Pleural effusion, not elsewhere classified (principal); J96.02 Acute respiratory failure with hypercapnia; J96.01 Acute respiratory failure with hypoxia; E87.2 Acidosis; I48.91 Unspecified atrial fibrillation; Z95.1 Presence of aortocoronary bypass graft; R09.02 Hypoxemia; I25.10 Atherosclerotic heart disease of native coronary artery without angina pectoris; Z86.73 Personal history of transient ischemic attack (TIA), and cerebral infarction without residual deficits; Z85.3 Personal history of malignant neoplasm of breast; K21.9 Gastro-esophageal reflux disease without esophagitis; E78.5 Hyperlipidemia, unspecified; I10 Essential (primary) hypertension; M19.90 Unspecified osteoarthritis, unspecified site; R74.8 Abnormal levels of other serum enzymes; Z66 Do not resuscitate; Z87.01 Personal history of pneumonia (recurrent)
CPT/HCPCS: 32555; 36600; 71010; 71275; 76705; 76937; 80053; 81001; 82550; 82805; 82945; 82948; 83605; 83615; 83735; 83880; 83986; 84100; 84157; 84443; 84484; 85025; 85610; 85730; 87040; 87070; 87205; 87449; 87641; 89051; 93005; 94002; 94003; 94640; 94664; 96374; 96375; C1729; J0610; J1160; J1650; J1940; J2270; J2930; J3370; J3480; J7050; Q9967